=== PATIENT | male | born 1955 | race Caucasian/White ===

== ENCOUNTER → 2018-12-08 | Outpatient (CLI) | payer OTHER, SELFPAY ==
[2018-12-08 18:15] VITALS: BMI 33.7
[2018-12-08 22:23] LABS: Absolute Neutrophil Count 3.4 X10^3/uL (2.0-7.7); Basophil# 0.06 X10^3/uL; Basophil% 0.9 % (0-1); Eosinophil# 0.21 X10^3/uL; Eosinophils% 3.2 % (0-5); Hematocrit 39.3 % (40-54); Hemoglobin 14.1 g/dL (13.0-16.5); Lymphocyte % 34.9 % (19-41); Mean Corp Hgb Conc 35.9 g/dL (32-36); Mean Corpuscular Hgb 33.5 pg (27.0-32.0); Mean Corpuscular Volume 93.3 fL (80-94); Mean Platelet Vol. 10.5 fl (6.2-12.0); Monocyte# 0.58 X10^3/uL; Monocyte% 8.8 % (0-10); NRBC Flagged by Analyzer 0 % (0-5); Neutrophil # 3.41 X10^3/uL (2.7-7.7); Neutrophil % 51.7 % (47-70); Platelet Count 210 K/mm3 (150-450); RBC Distribution Width CV 13.2 % (11.6-14.6); RBC Distribution Width SD 43.8 fl (35.1-43.9); Red Blood Count 4.21 M/mm3 (4.6-6.2); White Blood Count 6.6 K/mm3 (4.4-11.0)
[2018-12-08 22:42] LABS: ALB/GLOB Ratio 1.2 RATIO (0.9-2.4); AST(SGOT) 24 U/L (15-37); Alanine Aminotransfer ALT/SGPT 37 U/L (16-61); Albumin, Serum 3.9 g/dL (3.2-5.0); Alkaline Phosphatase 66 U/L (45-117); Anion Gap 6 (5-15); BUN 10 mg/dL (7-18); BUN/Creat Ratio 8.8 RATIO (10-20); Calcium,Total 8.4 mg/dL (8.5-10.1); Chloride 109 mmol/L (98-107); Cholesterol 208 mg/dL (200); Creatinine, Serum 1.13 mg/dL (0.70-1.30); EST Glomerular Filtration Rate 70 mL/min (>60); Est Glom Filt Rate - Afr Amer 84 mL/min (>60); Globulin 3.3 g/dL (2.2-4.2); Glucose 121 mg/dL (74-106); High Density Lipoprotein 48 mg/dL; PSA,Total - Annual Screen 0.41 ng/mL (0.00-4.00); Potassium 4.1 mmol/L (3.5-5.1); Protein, Total 7.2 g/dL (6.4-8.2); Sodium Level 142 mmol/L (136-145); Triglycerides 254 mg/dL; Very Low Density Lipoprotein 51 mg/dL (5-40)
== END | disposition home or self-care (01) ==
PROVIDERS: Family Provider Nurse Practitioner; PCP Nurse Practitioner; Referring Provider Nurse Practitioner; Visit Provider Nurse Practitioner
DX: R35.0 Frequency of micturition (principal); R06.02 Shortness of breath; R03.0 Elevated blood-pressure reading, without diagnosis of hypertension
CPT/HCPCS: 80053; 80061; 84153; 85025; G0103

== ENCOUNTER 2019-07-31 14:27 | Emergency (ER) | payer OTHER, SELFPAY ==
[2019-03-22 18:41] VITALS: BMI 34.2
[2019-07-31 14:29] VITALS: BP 116/82; PULSE 87; RESP 18; TEMP 37; O2SAT 97; BMI 34.7
--- NOTE | 2019-07-31 15:35 | EKG12_ITS ---
Test Reason : FATIQUE Blood Pressure : / mmHG Vent. Rate : 075 BPM Atrial Rate : 075 BPM P-R Int : 128 ms QRS Dur : 080 ms QT Int : 372 ms P-R-T Axes : -02 -10 004 degrees QTc Int : 415 ms Normal sinus rhythm Normal ECG Confirmed by PREM LARIOS, NAHEED ([id number]), restaurant expeditor BOOM ORTIZ ([id number]) on 08/03/2019 10:36:46 AM Referred By: Confirmed By:NAHEED AMARO MD
--- NOTE | 2019-07-31 15:36 | ED.DCSUM_ITS ---
History of Present Illness Chief Complaint: Fatigue Informant: Patient Narrative: Patient states for the last 2 weeks he has had worsening fatigue. He states the fatigue never goes away but sometimes is worse than others. He states today while at work he could barely lift his arms up off of his legs. He notes muscle cramps, arthralgias of shoulders elbows forearms wrist hands ankles knees neck. He states sometimes his abdomen feels swollen. He notes a very weak urine stream. He notes a sharp pain in the left inguinal region for the past several days it is now constant. He notes bilateral CVA discomfort that is worse on some days. No fevers. No cough. Sometimes he has chest pains and shortness of breath. No palpitations. He states he has been eating and drinking. No weight gain weight loss. Past Medical History - Allergies and Home Meds Allergies/Adverse Reactions: Allergies Penicillins Allergy (Verified 09/30/16 11:02) Rash Primary Care Physician: Deepthi Alex NP-C [Primary Care Provider] - Smoking Status: Never smoker - Family History Maternal Family History: Reports: Hypertension Review of Systems General: Reports: Malaise. Denies: Chills, Fever, Sweats Eyes: Denies: Visual changes - bilaterally, Diplopia ENT: Denies: Rhinorrhea, Sore throat Cardiovascular: Reports: Chest pain. Denies: Palpitations Respiratory: Reports: Dyspnea. Denies: Cough, Dyspnea on exertion Gastrointestinal: Reports: - - Left inguinal pain. Denies: Abdominal pain, Nausea, Vomiting, Diarrhea, Melena, Hematochezia Genitourinary: Reports: - - Weak stream. Denies: Dysuria, Hematuria, Frequency Musculoskeletal: Reports: Myalgias, Arthralgias, Neck pain, Back pain. Denies: Extremity Pain Skin: Denies: Rash, Wounds Neurological: Denies: Headache, Weakness, Numbness Physical Exam Vital Signs/Narrative: Vital Signs Temp Pulse Resp BP Pulse Ox 07/31/19 14:29 98.6 F 87 18 116/82 H 97 Inital Vital Signs reviewed: Yes General: Well nourished, Well developed, No Acute Distress Head: Normocephalic, Atraumatic Eyes: Perrl, EOMI ENT: Moist mucous membranes, No rhinorrhea Neck: Supple, Nontender Cardiovascular: Regular rate, Regular rhythm, No murmurs Respiratory: No distress, CTA bilaterally, Chest nontender Abdomen: Soft, Nontender, Nondistended, Normal bowel sounds Back: Nontender, Normal Inspection Extremities: Nontender, No edema Skin: Normal color, No rash Neurological: Alert, Oriented x3, Cranial nerves II-XII grossly intact, Normal Strength, Normal Sensation Psychological: Normal affect, Normal Mood Diagnostic/Tx/Re-eval Clinical Impression(s) from Imaging Studies Chest X-Ray 07/31/19 16:00 IMPRESSION: Patchy subsegmental atelectasis or infection now in the inferolateral right base. Slightly more prominent focal scarring or atelectasis in the inferolateral left base. Electronically Signed: Bandar Schneider MD at 16:21 EDT , Service support , Abdomen/Pelvis CT 07/31/19 17:04 IMPRESSION: 1. Patchy pneumonic infiltrate in the inferolateral right lung base. 2. 5 mm nodular density in the posterolateral left base see report of CTA chest also done today. 3. No demonstrated abdominal/pelvic mass or fluid collection. 4. Prior L2-3 discectomy with placement of a prosthesis, left L2 laminectomy, and posterior L2 fusion with metal hardware. There are multilevel degenerative changes of the spine. Electronically Signed: Bandar Schneider MD at 18:21 EDT , Service support , Chest CTA 07/31/19 17:04 IMPRESSION: 1. No demonstrated pulmonary embolism or arterial dissection. 2. Patchy pneumonic infiltrate in the lateral inferior right lower lobe. There is also minor subsegmental atelectasis in the posterior medial right costophrenic sulcus and in the lingula of the left upper lobe. 3. Additional nodules measuring up to 6 mm seen in the left lung. Per Fleischner criteria, these do not require specific radiographic follow-up. 4. Some atherosclerotic calcific plaquing seen in the proximal left coronary arteries. Heart size normal. Electronically Signed: Bandar Schneider MD at 18:31 EDT , Service support , Laboratory Last Values WBC 9.4 K/mm3 (4.4-11.0) 07/31/19 16:11 RBC 4.28 M/mm3 (4.6-6.2) L 07/31/19 16:11 Hgb 13.1 g/dL (13.0-16.5) 07/31/19 16:11 Hct 39.8 % (40-54) L 07/31/19 16:11 MCV 93.0 fL (80-94) 07/31/19 16:11 MCH 30.6 pg (27.0-32.0) 07/31/19 16:11 MCHC 32.9 g/dL (32-36) 07/31/19 16:11 RDW Std Deviation 43.8 fl (35.1-43.9) 07/31/19 16:11 RDW Coeff of Mario 12.9 % (11.6-14.6) 07/31/19 16:11 Plt Count 244 K/mm3 (150-450) 07/31/19 16:11 MPV 9.7 fl (6.2-12.0) 07/31/19 16:11 Immature Gran % (Auto) 0.300 % (0.0-0.9) 07/31/19 16:11 Neut % (Auto) 68.7 % (47-70) 07/31/19 16:11 Lymph % (Auto) 17.7 % (19-41) L 07/31/19 16:11 Phillips % (Auto) 11.1 % (0-10) H 07/31/19 16:11 Eos % (Auto) 1.9 % (0-5) 07/31/19 16:11 Baso % (Auto) 0.3 % (0-1) 07/31/19 16:11 Absolute Neuts (auto) 6.4 X10^3/uL (2.0-7.7) 07/31/19 16:11 Absolute Lymphs (auto) 1.66 X10^3/uL (0.83-4.51) 07/31/19 16:11 Nucleated RBC % 0 % (0-5) 07/31/19 16:11 Sodium 134 mmol/L (136-145) L 07/31/19 16:11 Potassium 3.5 mmol/L (3.5-5.1) 07/31/19 16:11 Chloride 101 mmol/L (98-107) 07/31/19 16:11 Carbon Dioxide 24.0 mmol/L (21.0-32.0) 07/31/19 16:11 Anion Gap 9 (5-15) 07/31/19 16:11 BUN 9 mg/dL (7-18) 07/31/19 16:11 Creatinine 0.99 mg/dL (0.70-1.30) 07/31/19 16:11 Estim Creat Clear Calc 77.83 ml/min 07/31/19 16:11 Est GFR (MDRD) Af Amer 97 mL/min (>60) 07/31/19 16:11 Est GFR (MDRD) Non-Af 80 mL/min (>60) 07/31/19 16:11 BUN/Creatinine Ratio 9.1 RATIO (10-20) L 07/31/19 16:11 Glucose 99 mg/dL (74-106) 07/31/19 16:11 Calcium 8.6 mg/dL (8.5-10.1) 07/31/19 16:11 Magnesium 2.2 mg/dL (1.6-2.6) 07/31/19 16:11 Total Bilirubin 0.80 mg/dL (0.20-1.00) 07/31/19 16:11 AST 37 U/L (15-37) 07/31/19 16:11 ALT 53 U/L (16-61) 07/31/19 16:11 Alkaline Phosphatase 83 U/L (45-117) 07/31/19 16:11 Troponin I < 0.015 ng/mL (<0.045) 07/31/19 16:11 Total Protein 7.6 g/dL (6.4-8.2) 07/31/19 16:11 Albumin 3.3 g/dL (3.2-5.0) 07/31/19 16:11 Globulin 4.3 g/dL (2.2-4.2) H 07/31/19 16:11 Albumin/Globulin Ratio 0.8 RATIO (0.9-2.4) L 07/31/19 16:11 Lipase 115 U/L (73-393) 07/31/19 16:11 TSH 0.58 uIU/mL (0.358-3.74) 07/31/19 16:11 Urine Color Straw (Yellow) 07/31/19 15:45 Urine Clarity Clear (Clear) 07/31/19 15:45 Urine pH 7.0 (5.0 - 8.0) 07/31/19 15:45 Ur Specific [place] 1.010 (1.002-1.030) 07/31/19 15:45 Urine Protein Negative mg/dl (Negative) 07/31/19 15:45 Urine Glucose (UA) Normal mg/dl (Normal) 07/31/19 15:45 Urine Ketones Negative mg/dl (Negative) 07/31/19 15:45 Urine Occult Blood 10 /ul (Negative) H 07/31/19 15:45 Urine Nitrite Negative (Negative) 07/31/19 15:45 Urine Bilirubin Negative mg/dL (Negative) 07/31/19 15:45 Urine Urobilinogen Normal mg/dl (Normal) 07/31/19 15:45 Ur Leukocyte Esterase Negative /ul (Negative) 07/31/19 15:45 Urine RBC 0-5 SEEN /hpf (0-5) 07/31/19 15:45 Urine WBC 0 SEEN /hpf (0-5) 07/31/19 15:45 Ur Squamous Epith Cells 0 SEEN /hpf (0-5) 07/31/19 15:45 Urine Bacteria 0 SEEN /hpf (None Seen) 07/31/19 15:45 Urine Mucus 0 SEEN /hpf (<or=2+) 07/31/19 15:45 COVID-19 (GRACIELA) Cancelled 07/31/19 17:17 - Medical Decision Making Basic labs were obtained and overall appeared quite well. Chest x-ray is concerning for right lower lobe pneumonia. CT of the abdomen pelvis does not demonstrate anything to explain the pain in the left inguinal region. CTA of the chest shows no PE. Multiple nodules were noted as well as areas of inflammation consistent with a pneumonia. His COVID-19 test will be sent but he does not qualify for the OD H test or in-house testing. He was placed on azithromycin instructed to rest and follow-up return if worsening or concerns ED Disposition - Plan for ED Patient: Disposition: Home or Assisted Living Diagnosis: Pneumonia, COVID-19 virus test result unknown Instructions: Pneumonia Prescriptions: Azithromycin [Zithromax Z-Boby] 250 mg PO UD #1 box Transmission Status: Pending to [id number] Referrals: Deepthi Alex NP-C [Primary Care Provider] -
[2019-07-31 15:50] LABS: Bacteria 0 SEEN /hpf (None Seen); Mucous, Urine 0 SEEN /hpf (<or=2+); Squamous Epithelial Cells - UA 0 SEEN /hpf (0-5); White Blood Cells 0 SEEN /hpf (0-5)
[2019-07-31 15:51] LABS: Color, Urine Straw (Yellow); Glucose, Dipstick Normal (Normal); Ketone-Dipstick Negative (Negative); Leukocyte Esterase-Dipstick Negative /ul (Negative); Nitrite-Dipstick Negative (Negative); Occult Blood-Urine 10 /ul (Negative); Protein-Dipstick Negative (Negative); Urine Bilirubin Dipstick Negative (Negative); Urine Clarity Clear (Clear); Urine Urobilinogen Normal (Normal)
--- NOTE | 2019-07-31 16:00 | RAD_ITS ---
STUDY: X-RAY CHEST REASON FOR EXAM: Male, 64 years old. Shortness of breath, weakness, lethargic TECHNIQUE: Single AP portable upright view of the chest. COMPARISON: Portable AP upright chest x-ray September 30, 2016. FINDINGS: There is ill-defined subsegmental density of atelectasis or infection now in the lateral right lung base. Focal, transverse subsegmental atelectasis or scarring inferolateral left base is slightly more prominent today. There is no demonstrated pleural abnormality. Normal size heart. Normal mediastinum and kristian. Normal visualized pulmonary arteries. Normal visualized aortic arch and descending thoracic aorta. There are stable spondylotic degenerative changes of the visualized thoracic spine. 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 There is no demonstrated abnormality of the visualized soft tissue structures of the upper abdomen. RAD/Chest 1 View (Portable) IMPRESSION: Patchy subsegmental atelectasis or infection now in the inferolateral right base. Slightly more prominent focal scarring or atelectasis in the inferolateral left base. Electronically Signed: Bandar Schneider MD at 16:21 EDT , Service support ,
[2019-07-31 16:06] LABS: Red Blood Cells-Urine 0-5 SEEN /hpf (0-5)
[2019-07-31] MEDS: 0.9% Normal Saline 1,000 ML 1000 ML IV (16:14)
[2019-07-31 16:22] LABS: Absolute Lymphocyte Count 1.66 X10^3/uL (0.83-4.51); Absolute Neutrophil Count 6.4 X10^3/uL (2.0-7.7); Basophil# 0.03 X10^3/uL; Basophil% 0.3 % (0-1); Eosinophil# 0.18 X10^3/uL; Eosinophils% 1.9 % (0-5); Hematocrit 39.8 % (40-54); Hemoglobin 13.1 g/dL (13.0-16.5); Lymphocyte # 1.66 X10^3/ul (4.0); Lymphocyte % 17.7 % (19-41); Mean Corp Hgb Conc 32.9 g/dL (32-36); Mean Corpuscular Hgb 30.6 pg (27.0-32.0); Mean Platelet Vol. 9.7 fl (6.2-12.0); Monocyte# 1.04 X10^3/uL; Monocyte% 11.1 % (0-10); NRBC Flagged by Analyzer 0 % (0-5); Neutrophil # 6.43 X10^3/uL (2.7-7.7); Neutrophil % 68.7 % (47-70); POSITIVE MORPHOLOGY YES; Platelet Count 244 K/mm3 (150-450); RBC Distribution Width CV 12.9 % (11.6-14.6); RBC Distribution Width SD 43.8 fl (35.1-43.9); Red Blood Count 4.28 M/mm3 (4.6-6.2); White Blood Count 9.4 K/mm3 (4.4-11.0)
[2019-07-31 16:23] LABS: Differential Indicated SCAN CRITERIA MET
[2019-07-31 16:51] LABS: ALB/GLOB Ratio 0.8 RATIO (0.9-2.4); AST(SGOT) 37 U/L (15-37); Alanine Aminotransfer ALT/SGPT 53 U/L (16-61); Albumin, Serum 3.3 g/dL (3.2-5.0); Alkaline Phosphatase 83 U/L (45-117); Anion Gap 9 (5-15); BUN 9 mg/dL (7-18); BUN/Creat Ratio 9.1 RATIO (10-20); Calcium,Total 8.6 mg/dL (8.5-10.1); Chloride 101 mmol/L (98-107); Creatinine, Serum 0.99 mg/dL (0.70-1.30); EST Glomerular Filtration Rate 80 mL/min (>60); Est Glom Filt Rate - Afr Amer 97 mL/min (>60); Estimated Creatinine Clearance 77.83 ml/min; Globulin 4.3 g/dL (2.2-4.2); Glucose 99 mg/dL (74-106); Lipase 115 U/L (73-393); Magnesium 2.2 mg/dL (1.6-2.6); Potassium 3.5 mmol/L (3.5-5.1); Protein, Total 7.6 g/dL (6.4-8.2); Sodium Level 134 mmol/L (136-145); Thyroid Stim Hormone (TSH) 0.58 uIU/mL (0.358-3.74)
[2019-07-31 17:00] VITALS: BP 141/67; PULSE 75; RESP 20; O2SAT 98
--- NOTE | 2019-07-31 17:04 | CT_ITS ---
STUDY: CTA CHEST/THORAX REASON FOR EXAM: Male, 64 years old. LETHARGIC/WEAKNESS X1 WEEK PAIN TO NECK, BACK, ANKLE, LEG RADIATION DOSAGE (If Supplied By Facility): CTDIvol = ( 18.77 ) mGy, DLP = ( 2029.68 ) mGycm TECHNIQUE: The examination was performed with the intravenous administration of 100CC ISOVUE 370. Post-processing of the angiographic images was performed, with multiplanar reformation and 3D reconstruction. Individualized dose optimization techniques were used for this CT. COMPARISON: None. FINDINGS: Normal enhancement of the main pulmonary artery and right and left pulmonary arteries. Normal enhancement of the bilateral peripheral pulmonary arteries. There is no demonstrated pulmonary embolism. Normal thoracic aorta and visualized great vessels. There is no demonstrated aortic dissection. Normal heart and pericardium. There are calcifications of the proximal left coronary arteries. Normal mediastinum. Normal hilar regions. Normal visualized trachea and bronchi. There is patchy pneumonic infiltrate in the inferolateral right lung base. Minor subsegmental atelectasis also seen in the posterior medial right costophrenic sulcus. Focal irregular density, likely a focus of scarring, in the posteromedial right apex on series 2 image 184, series 605 image 102. There is a 5 mm nodular density in the posterolateral periphery of the left lower lobe abutting the pleural surface on series 2 image 62, series 605 image 120. 5 mm nodule seen in the posterolateral periphery of the left lower lobe posterior to the mid lung on series 2 image 96, series 605 image 120 just superior to that is focal subsegmental atelectasis in the lateral periphery of the left lower lobe. There is additional subsegmental atelectasis in the inferior lingula of left upper lobe. Ill-defined 3-4 mm nodule seen in the lateral periphery of the left upper lobe on series 2 image 170, series 605 image 81. [place] 6 mm nodular density in the left upper lobe at the level of the aorticopulmonary window is seen on series 2 image 150, series 605 image 72. Normal pleura. Normal chest wall structures. There are multilevel spondylotic degenerative changes of the thoracic spine and a mildly exaggerated dorsal kyphosis. There is a very small hiatal hernia. CT/CTA Chest W/WO Contrast IMPRESSION: 1. No demonstrated pulmonary embolism or arterial dissection. 2. Patchy pneumonic infiltrate in the lateral inferior right lower lobe. There is also minor subsegmental atelectasis in the posterior medial right costophrenic sulcus and in the lingula of the left upper lobe. 3. Additional nodules measuring up to 6 mm seen in the left lung. Per Fleischner criteria, these do not require specific radiographic follow-up. 4. Some atherosclerotic calcific plaquing seen in the proximal left coronary arteries. Heart size normal. Electronically Signed: Bandar Schneider MD at 18:31 EDT , Service support ,
--- NOTE | 2019-07-31 17:04 | CT_ITS ---
STUDY: CT ABDOMEN AND PELVIS WITH CONTRAST REASON FOR EXAM: Male, 64 years old. LETHARGIC/WEAKNESS X 1 WEEK PAIN TO NECK, BACK, ANKLE, LEG RADIATION DOSAGE (If Supplied By Facility): CTDIvol = ( 18.77 ) mGy, DLP = ( 2029.68 ) mGycm TECHNIQUE: Transaxial images were obtained from the dome of the diaphragm to the symphysis pubis without oral contrast. IV 100mL Isovue-370 was administered. Sagittal and coronal images were reconstructed. Individualized dose optimization techniques were used for this CT. COMPARISON: None. FINDINGS: There is patchy pneumonic infiltrate in the inferolateral right lung base. Additional curvilinear atelectasis in the medial posterior right costophrenic sulcus. 5 mm nodular density in the posterolateral left lung base abuts the pleural surface. The visualized portions of the heart are within normal limits. Normal liver. The patent portal vein diameter is 12 mm. Normal gallbladder and extrahepatic biliary system. Normal spleen. Normal pancreas. Normal bilateral adrenal glands. Normal right kidney. Normal left kidney. No hydronephrosis. There is a small hiatal hernia. Normal small intestine. Normal colon. The appendix is visualized and appears normal. There is focal calcific plaquing at the takeoff of the left renal artery. Normal inferior vena cava. Normal retroperitoneum. Normal urinary bladder. Normal visualized prostate gland. Normal abdominal wall. There are multilevel degenerative changes of the visualized spine. Transitional lumbosacral vertebra is also noted. The patient has undergone prior L2-3 discectomy with placement of a prosthesis, left L2 laminectomy, as well as posterior L2-3 fusion with metal hardware. Bilateral transpedicular screws at those levels are connected on either side the longitudinal metal rods. CT/Abdomen/Pelvis W IV Cont ONLY IMPRESSION: 1. Patchy pneumonic infiltrate in the inferolateral right lung base. 2. 5 mm nodular density in the posterolateral left base see report of CTA chest also done today. 3. No demonstrated abdominal/pelvic mass or fluid collection. 4. Prior L2-3 discectomy with placement of a prosthesis, left L2 laminectomy, and posterior L2 fusion with metal hardware. There are multilevel degenerative changes of the spine. Electronically Signed: Bandar Schneider MD at 18:21 EDT , Service support ,
[2019-07-31] MEDS: 0.9% Normal Saline 1,000 ML 150 ML IV (18:25)
[2019-07-31 19:08] VITALS: BP 135/70; PULSE 70; RESP 16; O2SAT 99
[2019-07-31 19:56] LABS: Platelet Estimate ADEQUATE (ADEQ)
[2019-07-31 19:57] LABS: Red Cell Morphology NORM C+C NORMAL (NORM C&C)
== END 2019-07-31 19:10 | disposition home or self-care (01) ==
PROVIDERS: Emergency Provider Emergency Medicine; PCP Nurse Practitioner
DX: J18.9 Pneumonia, unspecified organism (principal)
CPT/HCPCS: 71045; 71275; 74177; 80053; 81001; 83690; 83735; 84443; 84484; 85025; 87635; 93005; 96360; 96361; 99285; G2023; J7030; Q9967; A4216; U0003

== ENCOUNTER → 2020-01-19 17:37 | Outpatient (CLI) | payer OTHER, SELFPAY ==
[2020-01-18 17:33] VITALS: BMI 34.7
== END ==
PROVIDERS: PCP Nurse Practitioner; Referring Provider Nurse Practitioner; Visit Provider Nurse Practitioner
DX: Z20.828 Contact with and (suspected) exposure to other viral communicable diseases (principal)
CPT/HCPCS: 87635; C9803; U0003

== ENCOUNTER → 2022-01-09 | Outpatient (CLI) | payer OTHER, SELFPAY ==
[2022-01-09 22:02] LABS: Absolute Lymphocyte Count 2.19 X10^3/uL (0.83-4.51); Absolute Neutrophil Count 3.2 X10^3/uL (2.0-7.7); Basophil# 0.05 X10^3/uL; Basophil% 0.8 % (0-1); Eosinophil# 0.14 X10^3/uL; Eosinophils% 2.3 % (0-5); Hematocrit 42.1 % (40-54); Hemoglobin 14.5 g/dL (13.0-16.5); Lymphocyte # 2.19 X10^3/ul (0.83-4.51); Mean Corp Hgb Conc 34.4 g/dL (32-36); Mean Corpuscular Hgb 32.2 pg (27.0-32.0); Mean Corpuscular Volume 93.3 fL (80-94); Mean Platelet Vol. 10.7 fl (6.2-12.0); Monocyte# 0.51 X10^3/uL; Monocyte% 8.4 % (0-10); NRBC Flagged by Analyzer 0 % (0-5); Neutrophil # 3.18 X10^3/uL (2.7-7.7); Neutrophil % 52.2 % (47-70); Platelet Count 214 K/mm3 (150-450); RBC Distribution Width CV 13.4 % (11.6-14.6); RBC Distribution Width SD 45.5 fl (35.1-43.9); Red Blood Count 4.51 M/mm3 (4.6-6.2); White Blood Count 6.1 K/mm3 (4.4-11.0)
[2022-01-09 22:16] LABS: ALB/GLOB Ratio 1.1 RATIO (0.9-2.4); AST(SGOT) 24 U/L (15-37); Alanine Aminotransfer ALT/SGPT 34 U/L (16-61); Albumin, Serum 3.9 g/dL (3.2-5.0); Alkaline Phosphatase 69 U/L (45-117); Anion Gap 5 (5-15); BUN 14 mg/dL (7-18); BUN/Creat Ratio 13.3 RATIO (10-20); Calcium,Total 9.1 mg/dL (8.5-10.1); Chloride 107 mmol/L (98-107); Cholesterol 237 mg/dL (200); Creatinine, Serum 1.05 mg/dL (0.70-1.30); EST Glomerular Filtration Rate 75 mL/min (>60); Est Glom Filt Rate - Afr Amer 91 mL/min (>60); Globulin 3.5 g/dL (2.2-4.2); Glucose 147 mg/dL (74-106); High Density Lipoprotein 50 mg/dL; Magnesium 2.2 mg/dL (1.6-2.6); Potassium 4.6 mmol/L (3.5-5.1); Protein, Total 7.4 g/dL (6.4-8.2); Sodium Level 140 mmol/L (136-145); Triglycerides 264 mg/dL; Very Low Density Lipoprotein 53 mg/dL (5-40)
== END | disposition home or self-care (01) ==
PROVIDERS: PCP Nurse Practitioner; Visit Provider Nurse Practitioner
DX: G43.109 Migraine with aura, not intractable, without status migrainosus (principal); R25.2 Cramp and spasm; R35.0 Frequency of micturition; E78.00 Pure hypercholesterolemia, unspecified
CPT/HCPCS: 80053; 80061; 83735; 84153; 85025; G0103

== ENCOUNTER → 2022-06-09 | Outpatient (CLI) | payer OTHER, SELFPAY ==
[2022-06-09 22:31] LABS: Absolute Lymphocyte Count 1.99 X10^3/uL (0.83-4.51); Absolute Neutrophil Count 3.7 X10^3/uL (2.0-7.7); Basophil# 0.06 X10^3/uL; Basophil% 0.9 % (0-1); Eosinophil# 0.15 X10^3/uL; Eosinophils% 2.3 % (0-5); Hematocrit 42.9 % (40-54); Hemoglobin 14.4 g/dL (13.0-16.5); Lymphocyte # 1.99 X10^3/ul (0.83-4.51); Lymphocyte % 30.8 % (19-41); Mean Corp Hgb Conc 33.6 g/dL (32-36); Mean Corpuscular Volume 92.3 fL (80-94); Mean Platelet Vol. 11.4 fl (6.2-12.0); Monocyte# 0.55 X10^3/uL; Monocyte% 8.5 % (0-10); NRBC Flagged by Analyzer 0 % (0-5); Neutrophil # 3.69 X10^3/uL (2.7-7.7); Neutrophil % 57.2 % (47-70); Platelet Count 192 K/mm3 (150-450); RBC Distribution Width CV 13.2 % (11.6-14.6); RBC Distribution Width SD 44.5 fl (35.1-43.9); Red Blood Count 4.65 M/mm3 (4.6-6.2); White Blood Count 6.5 K/mm3 (4.4-11.0)
[2022-06-09 23:01] LABS: ALB/GLOB Ratio 1.1 RATIO (0.9-2.4); AST(SGOT) 25 U/L (15-37); Alanine Aminotransfer ALT/SGPT 36 U/L (16-61); Albumin, Serum 3.8 g/dL (3.2-5.0); Alkaline Phosphatase 68 U/L (45-117); Anion Gap 2 (5-15); BUN 23 mg/dL (7-18); BUN/Creat Ratio 18.5 RATIO (10-20); Calcium,Total 9.1 mg/dL (8.5-10.1); Chloride 108 mmol/L (98-107); Cholesterol 248 mg/dL (200); Creatinine, Serum 1.24 mg/dL (0.70-1.30); EST Glomerular Filtration Rate 62 mL/min (>60); Est Glom Filt Rate - Afr Amer 75 mL/min (>60); Globulin 3.4 g/dL (2.2-4.2); Glucose 130 mg/dL (74-106); High Density Lipoprotein 44 mg/dL; Potassium 4.4 mmol/L (3.5-5.1); Protein, Total 7.2 g/dL (6.4-8.2); Sodium Level 136 mmol/L (136-145); Thyroid Stim Hormone (TSH) 1.41 uIU/mL (0.358-3.74); Triglycerides 282 mg/dL; Very Low Density Lipoprotein 56 mg/dL (5-40)
[2022-06-10 09:55] LABS: PTHIN 30.4 pg/mL (18.4-80.1)
[2022-06-11 13:02] LABS: Lyme Scn Total Ab w/Rflx Negative (Negative)
[2022-06-11 13:08] LABS: Anti-Centromere B Ab <0.2 AI (0.0-0.9); Anti-Chromatin <0.2 AI (0.0-0.9); Anti-Jo <0.2 AI (0.0-0.9); Anti-Scleroderma-70 AB <0.2 AI (0.0-0.9); RNP Ab <0.2 AI (0.0-0.9); SJOGREN'S Anti-SS-A test < 0.2 AI (0.0-0.9); SJOGREN'S Anti-SS-B test < 0.2 AI (0.0-0.9); Smith Ab <0.2 AI (0.0-0.9)
[2022-06-11 18:54] LABS: Anti-dsDNA Ab 1 IU/mL (0-9)
== END | disposition home or self-care (01) ==
PROVIDERS: PCP Nurse Practitioner; Visit Provider Nurse Practitioner
DX: Z00.00 Encounter for general adult medical examination without abnormal findings (principal); R29.898 Other symptoms and signs involving the musculoskeletal system; R42 Dizziness and giddiness
CPT/HCPCS: 80053; 80061; 83970; 84443; 85025; 86140; 86225; 86235; 86618

== ENCOUNTER → 2023-03-10 | Outpatient (CLI) | payer MEDICARE, SELFPAY ==
--- NOTE | 2023-03-10 09:31 | RAD_ITS ---
EXAM: XR BILATERAL HIPS WITH PELVIS WHEN PERFORMED, 2 VIEWS CLINICAL INDICATION: Pain, hx of lower back surgery in 2016 TECHNIQUE: Frontal view of the bilateral hips with pelvis when performed. COMPARISON: No relevant prior studies available. FINDINGS: BONES/JOINTS: Narrowing of the left hip joint space noted. SOFT TISSUES: Normal. No soft tissue swelling or gas. RAD/Hips B/L min 2 views w/ Pelvis IMPRESSION: No acute bone or joint abnormality. Degenerative narrowing of the left hip joint. Electronically Signed: Moreno Fried MD at 10:18 EST ,
--- NOTE | 2023-03-10 09:31 | RAD_ITS ---
EXAM: XR LUMBOSACRAL SPINE FLEXION/EXTENSION ONLY, 2 OR 3 VIEWS CLINICAL INDICATION: bilat quad pain that radiates down legs TECHNIQUE: Lateral flexion/extension views of the lumbar spine and sacrum. COMPARISON: No relevant prior studies available. FINDINGS: VERTEBRAE: Interpedicular screw fixation of L3 and L4 with L3 laminectomy. No acute fracture or subluxation. No evidence of instability with flexion and extension. Limited range of motion is noted at the lumbar level. DISC SPACES: Disc implant in place at the L2-3 level. L2-3 disc space is narrowed. Prominent facet arthropathy at the L3-4, L4-5 and L5-S1 levels. GASTROINTESTINAL TRACT: Normal bowel gas pattern. RAD/L/S Spine Bending Flex/Ext IMPRESSION: Postoperative and degenerative changes. No evidence of instability. Electronically Signed: Moreno Fried MD at 10:21 EST ,
== END | disposition home or self-care (01) ==
PROVIDERS: PCP Nurse Practitioner; Referring Provider Nurse Practitioner; Visit Provider Nurse Practitioner
DX: M54.10 Radiculopathy, site unspecified (principal)
CPT/HCPCS: 72120; 73521

== ENCOUNTER 2023-03-22 07:35 | Outpatient (RCR) | payer MEDICARE, SELFPAY ==
--- NOTE | 2023-06-07 11:07 | HP.PT.NRP ---
Patient Information Patient Information: DONALD JONES was seen in my office for initial evaluation on 03/22/23. The following Plan of Care was established for this patient: Last Seen Last Seen: This patient was last seen in our office . Pertinent comments regarding their Physical therapy will appear below: Patient to have surgery- d/c At this point I will be discontinuing this patient from physical therapy. I would be happy to see this patient again in the future if found appropriate by the physician. Thank you! KARELY HannahT
== END 2023-03-22 19:00 | disposition home or self-care (01) ==
LOC: PT 07:35
PROVIDERS: PCP Nurse Practitioner; Referring Provider Orthopaedic Surgery Orthopaedic Surgery of the Spine; Visit Provider Orthopaedic Surgery Orthopaedic Surgery of the Spine
DX: M54.16 Radiculopathy, lumbar region (principal)

== ENCOUNTER → 2023-03-22 | Outpatient (CLI) | payer MEDICARE, SELFPAY ==
--- NOTE | 2023-03-22 15:34 | MRI_ITS ---
STUDY: MRI LUMBAR SPINE WITHOUT CONTRAST REASON FOR EXAM: Male, 67 years old. pain, low back pain, leg pain TECHNIQUE: Standardized fat and water weighted pulse sequences were obtained in the sagittal and axial planes. COMPARISON: Lumbar spine radiograph March 10, 2023 FINDINGS: T12-L1: Normal endplates. Normal disc height, hydration and morphology. Normal bilateral facet joints. Normal central canal and bilateral lateral recesses. Normal bilateral intervertebral neural foramina. Normal lumbar lordosis. There is no substantial scoliosis. Normal conus medullaris that terminates at the T12-L1. L1-2: Normal endplates. Normal disc height, hydration and morphology. Normal bilateral facet joints. Normal central canal and bilateral lateral recesses. Normal bilateral intervertebral neural foramina. L2-3: Normal endplates. Normal disc height, hydration and morphology. Normal bilateral facet joints. Normal central canal and bilateral lateral recesses. Normal bilateral intervertebral neural foramina. Posterior interbody fusion rods. Disc spacer. L3-4: Normal endplates. Normal disc height, hydration and morphology. Normal bilateral facet joints. Normal central canal and bilateral lateral recesses. Narrowed bilateral intervertebral neural foramina. L4-5: Normal endplates. Normal disc height, hydration and morphology. Hypertrophic bilateral facet joints. Normal central canal and bilateral lateral recesses. Narrowed bilateral intervertebral neural foramina. L5-S1: Normal endplates. Normal disc height, hydration and morphology. Normal bilateral facet joints. Normal central canal and bilateral lateral recesses. Normal bilateral intervertebral neural foramina. Normal visualized sacral ala. Normal visualized paraspinous soft tissue structures. MRI/Spine Lumbar (Routine) IMPRESSION: Posterior interbody fusion L2-3. Bilateral neural foraminal narrowing as above. No acute disease. Electronically Signed: Eduardo Newsome MD at 23:19 EST ,
== END | disposition home or self-care (01) ==
PROVIDERS: PCP Nurse Practitioner; Visit Provider Orthopaedic Surgery Orthopaedic Surgery of the Spine
DX: M54.16 Radiculopathy, lumbar region (principal)
CPT/HCPCS: 72148

== ENCOUNTER → 2023-04-14 | Outpatient (CLI) | payer MEDICARE, SELFPAY ==
--- NOTE | 2023-04-14 07:07 | CT_ITS ---
CT LEFT LOWER EXTREMITY WITH 3-D IMAGING CLINICAL INDICATION: templating for left JOSEPH TECHNIQUE: Axial CT images of the LEFT lower extremity was performed without IV contrast material. Coronal and sagittal reformats as well as 3D reformats were provided. RADIATION DOSAGE (If Supplied By Facility): CTDIvol = ( 14.07 ) mGy, DLP = ( 958.77 ) mGycm COMPARISON: Prior study dated: 2023. FINDINGS: Bones: There is a marked degree of joint space narrowing with superior lateral migration of the left femoral head. Mild degree of joint space narrowing of the right hip joint. Imaging of the knee joints was obtained as well. There is a mild degree of joint space narrowing involving the medial compartments of the knee joints as well as calcification of the medial and lateral menisci. Soft Tissues: The deep soft tissue structures are unremarkable. Small knee joint effusion. CT/Extremity Lower without Contra IMPRESSION: Marked degree of joint space narrowing involving the left hip joint as described. Mild degree of joint space narrowing involving the medial compartments of both knee joints with chondrocalcinosis. Electronically Signed: Robert Kumar MD at 10:49 EST ,
== END | disposition home or self-care (01) ==
LOC: CT 07:07
PROVIDERS: PCP Nurse Practitioner; Referring Provider Orthopaedic Surgery; Visit Provider Orthopaedic Surgery
DX: M16.12 Unilateral primary osteoarthritis, left hip (principal)
CPT/HCPCS: 73700

== ENCOUNTER 2023-05-18 08:06 | Day surgery (SDC) | payer MEDICARE, SELFPAY ==
--- NOTE | 2023-05-12 07:11 | EKG12_ITS ---
Test Reason : PREOP Blood Pressure : / mmHG Vent. Rate : 066 BPM Atrial Rate : 066 BPM P-R Int : 128 ms QRS Dur : 078 ms QT Int : 392 ms P-R-T Axes : 009 -03 029 degrees QTc Int : 410 ms Sinus rhythm with Premature supraventricular complexes Otherwise normal ECG Confirmed by TATE LARIOS, RADHA ([id number]), supervising editor trailer VERO KNOWLES ([id number]) on 05/12/2023 1:42:53 PM Referred By: Julio César Ugalde Confirmed By:RADHA YBARRA MD
[2023-05-12 08:17] LABS: Absolute Lymphocyte Count 2.03 X10^3/uL (0.83-4.51); Absolute Neutrophil Count 3.1 X10^3/uL (2.0-7.7); Basophil# 0.05 X10^3/uL; Basophil% 0.8 % (0-1); Eosinophil# 0.14 X10^3/uL; Eosinophils% 2.4 % (0-5); Hematocrit 42.9 % (40-54); Hemoglobin 14.6 g/dL (13.0-16.5); Lymphocyte # 2.03 X10^3/ul (0.83-4.51); Lymphocyte % 34.3 % (19-41); Mean Corpuscular Hgb 31.1 pg (27.0-32.0); Mean Corpuscular Volume 91.3 fL (80-94); Mean Platelet Vol. 10.2 fl (6.2-12.0); Monocyte# 0.58 X10^3/uL; Monocyte% 9.8 % (0-10); NRBC Flagged by Analyzer 0 % (0-5); Neutrophil % 52.4 % (47-70); Platelet Count 194 K/mm3 (150-450); RBC Distribution Width CV 13.3 % (11.6-14.6); RBC Distribution Width SD 44.8 fl (35.1-43.9); White Blood Count 5.9 K/mm3 (4.4-11.0)
[2023-05-12 08:48] LABS: Magnesium 2.5 mg/dL (1.6-2.6)
[2023-05-12 08:50] LABS: Anion Gap 7 (5-15); BUN 10 mg/dL (7-18); BUN/Creat Ratio 10.9 RATIO (10-20); Chloride 105 mmol/L (98-107); Creatinine, Serum 0.92 mg/dL (0.70-1.30); EST Glomerular Filtration Rate 87 mL/min (>60); Est Glom Filt Rate - Afr Amer 105 mL/min (>60); Glucose 95 mg/dL (74-106); Potassium 3.8 mmol/L (3.5-5.1); Sodium Level 139 mmol/L (136-145)
[2023-05-12 09:30] LABS: Prothrombin Time (Protime)PT. 13.4 SECONDS (11.7-14.9)
[2023-05-12 09:31] LABS: Partial Thromboplast Time 27.6 Seconds (24.1-36.2)
[2023-05-12 10:31] LABS: Hemoglobin A1c 5.1 % (3.8-5.6)
[2023-05-13 05:07] LABS: Fructosamine 234 umol/L (0-285)
[2023-05-18] VITALS (15 sets, daily range): BP systolic 102–141; BP diastolic 48–96; PULSE 64–88; RESP 16; TEMP 35.7–37; O2SAT 92–100; BMI 31.4
[2023-05-18 09:21] LABS: Bedside Glucose 89 mg/dL (74-106)
[2023-05-18] MEDS: Lactated Ringers 1,000 ML 999 ML IV (09:26)
[2023-05-18] MEDS: Celecoxib 200 MG Capsule 400 MG PO (09:27)
[2023-05-18] MEDS: Acetaminophen 500 MG Tablet 1000 MG PO (09:27)
[2023-05-18] MEDS: Gabapentin 600 MG Tablet PO (09:27)
[2023-05-18] MEDS: Scopolamine 1mg/72hr Patch 1 PATCH TD (09:31)
[2023-05-18] MEDS: Magnesium 1 GM over 15 mins IV (09:31)
--- NOTE | 2023-05-18 09:56 | PCM.HP.BLA ---
History and Physical Date of Admission: 05/18/23 [facility] [address] [place] [address] OFFICE VISIT Date of Service: 03/29/23 MR#: [id number] Acct: [id number] Name: DONALD JONES Rep #: [id number] : 1955 Provider: Dr. Julio César Ugalde DO Age/Sex: 67/M Location: [facility] [place].ERMELINDA Status: Signed Intake Vital Signs 03/17/2407:05 03/17/2407:52 03/29/2407:08 Height 5 ft 10 in 5 ft 10 in 5 ft 10 in Weight: 231 lb 6 oz BMI 33.2 Intake Visit Reasons: BI LAT HIPS Is patient in pain?: Yes (Bilateral hips) Pain scale (1-10): 4 Allergies Penicillins Allergy (Verified 03/29/23 07:59) Rash Medications NK 03/17/23 [History Confirmed 03/29/23] PFSH Medical History Bilateral acute otitis media BULDGING DISC LOWER LUMBAR REGION Burning sensation of feet CARPAL TUNNEL RIGHT HAND Cellulitis Close exposure to COVID-19 virus Cough Elevated C-reactive protein (CRP) Fatigue Fever Frequency of urination High blood cholesterol Hordeolum of right eye Hx of migraines Left facial pain Left otitis media Left otitis media Leg cramps Lymphadenopathy of head and neck Maxillary sinusitis, acute Mixed hyperlipidemia Ocular migraine Otitis media, left PHOBIA WITH GROUS TO URINATE Skin lesion SOB (shortness of breath) on exertion Tingling of both feet Vertigo Weakness of lower extremity Wellness examination Surgical History History of back surgery History of left heart catheterization (LHC) (~10/01/16) Family History Uncle Heart diseaseBrother Myocardial infarction Social History Smoking Status: Never smoker alcohol intake: never substance use type: does not use HPI BI LAT HIPS Details: This documentation accurately reflects the service provided and the decisions made by me, Dr. Julio César Ugalde DO 03/29/23 0753. Part of today?s visit was documented by Estela CROWE, acting as scribe. DONALD JONES is a 67 year old M here today for bilateral hip pain. He states the left hip is worse than the right. His right is very minimal. He states the pain gets worse as the day goes on. He states at times his hips feels like they are going to give out on him. By the end of the day he is barely able to walk. He does have numbness and tingling as well down the anterior thigh and some pain down past the knee for which he is seeing Dr. [place] for. He denies previous surgery or injury to the hips. Left hip pain has been present for 2 years and getting worse over the past year. He did have to retire due to his hip pain not able to stand. Pain is mostly in the groin radiates to the glute and over medial and anterior thigh. He has not done any physical therapy or NSAIDs. Of note he did have lumbar surgery 2016 Ortho Exam General General: Yes no acute distress Neurologic: Yes alert and Yes oriented x3 Psychologic: Yes reasonable and appropriate Left Hip Skin/Wound: No Ecchymosis, No soft tissue swelling and No Erythema Hip: Absent eccymosis, soft tissue swelling, erythema or tender to palpate - internal rotation @90 degree flexion: 0 degrees external rotation @90 degree extension: 20 degrees Special Tests: Yes RROM flexion pain; No TTP Greater Troch HIP: internal and external rotation with reproduction of groin pain is significant No masses around the hip or skin concern no significant edema palpable pedal pulse Scaly low-intensity erythematous small rash on BL ankles, states he gets every year then goes away. Head: Normocephalic Atraumatic Chest: symmetrical rise, non-labored breathing, no audible wheeze Abdomen: no guarding, non-rigid Supplemental Info 03/22/2023 MRI lumbar spine: L3-L4 normal bilateral neural foramina L4-L5 narrowed bilateral neural foramina 03/10/2023 x-ray bilateral hips: Left hip severe joint space narrowing degenerative changes seen at the pubic symphysis posterior lumbar instrumentation partially viewed right hip has a very early minimal degenerative change 03/10/2023 x-ray lumbar spine: Posterior lateral pedicular screw fixation L2-L3 there is degenerative arthrosis lower lumbar facets bilaterally Coding Level of Care Code Off vis,est,level 4 Diagnoses Status post lumbar spinal fusion Z98.1 Lumbar radiculopathy M54.16 Unilateral primary osteoarthritis, left hip M16.12 Assessment and Plan Assessment and Plan (1) Status post lumbar spinal fusion: Status: Acute (2) Lumbar radiculopathy: Status: Acute (3) Unilateral primary osteoarthritis, left hip: Status: Acute Plan X-rays were reviewed. There is no obvious fracture, dislocation, or lucency noted. Left hip does moderate to severe arthritis of the hip in addition he does have some lower lumbar spondylosis below his previous surgery. Patient was made aware that his numbness/tingling/pain below his knee and possibly anterior thigh will not go away after having a JOSEPH, however he is a candidate for hip replacement and I do think it would benefit him in terms of his severe pain that is experiencing in his groin which is reproducible on examination. Treatment options are do nothing or anti-inflammatories or physical therapy or a JOSEPH. Risks, benefits and alternatives of surgery reviewed including but not limited to bleeding, infection, nerve, foot drop, artery and/or tissue damage, fracture, VTE, leg length discrepancy, dislocation, need for hip precautions, continued pain and expected post-operative course. We discussed the recovery period postoperative expectations and limitations. Patient was counseled about dental work with have a total hip replacement. Patient would like to go home and think about it before going forward with the JOSEPH. Patient does have 17 steps at home that he would have to navigate and he does live with his however she would not be able to help him physically so he may need to be observed overnight. Follow up he wants to proceed with surgery or sooner if pain, swelling, numbness or associated symptoms, or concerns develop. All questions answered. Patient in agreement of plan. 03/29/23 0844 <Electronically signed by Julio César Ugalde DO> Date Julio César Ugalde DO I have examined the patient and the H&P has been reviewed. There are no clinical changes since date of exam.
--- NOTE | 2023-05-18 11:05 | HIP_PTH ---
PATIENT: DONALD JONES [place] [facility] [place][id number] AGE/SX: 68/M ROOM: RE05/18/[address]: Dr. Julio César Ugalde DO : 1955 BED: DIS: 05/18/2023 SPEC #: [id number] RECD: 05/18/23 16:03 STATUS: TYREL REJacqueline #: [id number] KAITLYN: 05/18/23 11:[address]: Julio César Ugalde DEPT: SURGICAL PATHOLOGY RECD BY: Elizabeth Cabezas ENTERED: 05/19/23 08:43 SP TYPE: TOTAL HIP OTHR DR: Deepthi Alex, ROVING CHANGER-C Tissues: Hip, NOS Procedures: Decalcification bone/plaque Surgery Specimen Level IV HEADER OPERATION: ERAS left total hip replacement robotic arm assisted PRE-OP DIAGNOSIS: Unilateral primary osteoarthritis, left hip TISSUE SUBMITTED: Femoral head MICROSCOPIC DIAGNOSIS Bone and tissue of left hip, total hip resection: Severe degenerative joint disease. AM: 05/24/23 MICROSCOPIC DESCRIPTION Slides are reviewed. GROSS DESCRIPTION Received is one container labeled with the patient's name and designated bone and soft tissue left hip. The specimen consists of a sellers femoral head (with portion of femoral neck). The femoral head measures 5.0 x 5.0 x 5.0 cm (and the femoral neck measures 2.0 cm in length.) The articular surface displays prominent osteophyte formation, eburnation and bone erosion. Bone reamings measures in aggregate 8.0x7.0x2.0cm. Faculty Support Coordinator sections are submitted in two cassettes after decalcification as follows: 1 - bone reaming, 2 - femoral head. / 05/19/23 TC:5 CPT: 37546, 47748
[2023-05-18] MEDS: Cefazolin 2 GM in 0.9% Normal Saline (100mL Bag) 100 ML IV ×2 (11:12→16:37)
[2023-05-18] MEDS: TRANEXAMIC ACID 2,000 MG in 0.9% Normal Saline (100mL Bag) 100 ML 660 MG IV (11:20)
[2023-05-18] MEDS: dexAMETHasone 10 MG/ML Vial IV (11:32)
--- NOTE | 2023-05-18 13:12 | OP.PCM_ITS ---
Operative Report Date of Procedure: 05/18/23 Preoperative diagnosis: [Left] hip DJD Postoperative diagnosis: Same Procedure: CT-guided Makoplasty assisted [Left] total hip arthroplasty Implants: [place] Accolade II stem size 6, [127] degree neck angle 0 head neck length 58 mm Trident II acetabular shell with 40 mm cancellous screw [36]mm [ceramic] head, 10 degree Trident X3 polyethylene insert. Anesthesia: General EBL: [175] cc Complications: None Condition: Stable to PACU [Title Inspector Nomi Patel. My physician pharmacy technician assistant was a vital part of this case. He was important in appropriate retraction during the case, and protection of soft tissues during procedure. His intimate knowledge of the case and my steps aided in safe and expedient completion of the procedure as well as appropriate position of the extremity during the case. He was also vital in assisting with closure under my direct supervision.] Indication for procedure: This is a 68-year-old male who has had long-standing arthrosis of the hip who has failed conservative treatment and wished to undergo total hip arthroplasty. We did discuss operative versus nonoperative intervention including risks of bleeding, infection , nerve artery tissue damage, need for further surgery, fracture, leg length discrepancy dislocation blood clot and need for postoperative physical therapy and postoperative expectations. An informed consent was signed. Procedure: Patient was met in the preoperative holding area once again the operative extremity was identified by both patient and physician and was marked. Patient was met by anesthesia . Anesthesia was started. patient was then positioned in the lateral decubitus position on a well-padded pegboard with an axillary roll. All bony prominences were checked and padded. The patient was prepped and draped in the usual sterile fashion. A timeout was called to ensure the proper patient procedure and extremity were being contemplated. Anatomic landmarks were palpated and marked for a standard posterior lateral approach. Prior to this the ASIS was palpated and 3 fingerbreadths proximal to this 3 pins were placed at a 45 degree angle into the iliac crest with good purchase, stab incisions were made with a 15 blade into the skin prior to placement. The Makoplasty array was then secured. A 10 blade scalpel was used to make a posterior incision through the skin and subcutaneous tissue. retractors were used and electrocautery was used to maintain meticulous hemostasis and dissect full-thickness flaps until the gluteal fascia was reached. The gluteal fascia was incised in line with the gluteal fibers. The bursal tissue was then freed from the underside and a Charnley retractor was placed. The femoral trochanteric checkpoint was placed and leg length was assessed using the trochanteric checkpoint and an EKG lead that was placed on the knee prior to prepping the leg .the fat pad was then elevated off of the external rotators with electrocautery and the external rotators were dissected off of the greater trochanter including the piriformis and were tagged with #1 Ethibond for later repair. The joint capsule opened with posterior trapdoor technique. The hip was surgically dislocated. The measurement on the preoperative CT from the top of the lesser trochanter to the femoral neck cut was marked Hohmann was placed around the lesser trochanter. A neck cutting guide was used to rosa the neck with a Bovie and an oscillating saw was used complete the femoral neck cut. The femoral head was then removed and sized. We then turned our attention to the acetabulum. A Bovie was used to make a perforation in the anterior joint capsule and a Noland retractor was placed this was repeated in the 6 o'clock position and a wide lenny was placed there. With a long handled knife the labral and pulvinar tissue were removed. We then registered the acetabulum with the pointing array and confirmed our landmarks. Once the socket was thoroughly prepared and labral tissue and pulvinar was removed we single reamed with the robotic arm. We then used the robotic arm to position the acetabular implant and impacted it into place under robotic guidance. [We then proceeded to place a posterior superior screw by drilling first measuring and inserting the screw]. We then inserted a trial liner. And turned our attention back to the femur at this point a femoral elevator was used. As well as a pointed wide Hohmann around the lesser trochanter and a Hohmann to help retract the gluteus medius. A box chisel was used to remove excess lateral neck followed by a canal finder and a lateralizing reamer. This was followed by sequential broaches. Attention was made of the version within the canal based on preoperative templating. Once the final broach was seated we then trialed reduced the hip it was determined that a [127] degree neck angle with a 0 neck length was the appropriate size. We then checked stability with shuck testing as well as flexion and internal rotation. then proceeded with hip extension and checked leg lengths at the knees and heels as well as with the trochanteric checkpoint and knee EKG lead. At this point trials were removed. A liner was inserted to the cup. The femoral stem was inserted. We re-trialed and then proceeded to impact the femoral head onto the Gelacio taper. We then surgically reduce the hip check stability again and leg lengths and were satisfied. Betadine rinse was allowed to sit for 5 minutes while everyone changed their gloves. Thorough irrigation was performed. Followed by closure of the external rotators with #2 FiberWire followed by closure of gluteal fascia with #1 Ethibond. 0 Vicryl fat stitches and 2-0 Vicryl subcutaneous stitches and kayce in the skin. Kayce were placed in the skin pin sites over the iliac crest and dressed with a Mepilex dressing. The main incision was dressed with a Mepilex ag dressing and an abduction pillow was placed. Patient tolerated the procedure well there was no intraoperative complications all counts were correct and the patient was brought back to the PACU in stable condition
--- NOTE | 2023-05-18 13:13 | EX.PCM.DISCH ---
Discharge Instructions Diet Discharge Diet: No restrictions Activity Weight Bearing Status: Full weight bearing Dressing / Incision Call your doctor if you observe: Shortness of breath and Chest pain Additional Dressing/Incision Instructions:: Do not shower 72hrs. Begin daily showering warm water antibacterial soap postop day #3( 72hrs Post-operatively) and then daily. Leave the dressing on for 72 hours postoperatively then may remove prior to first shower and change dressing daily after this until no drainage for 2 consecutive days then may leave open to air. Follow hip precautions that were reviewed in hospital. Wear compression stockings, may remove at night. Start physical therapy as directed in hospital. Follow prescriptions instructions do not take any other pain medication or differ dosing without consulting your physician. Do not take oral NSAIDs until blood thinner has been completed , then may begin the day after completion if needed . Call Dr. Ugalde's office with any concerns. Follow Up Care Please Follow Up With: Julio César Ugalde DO When: 2 weeks Test Results: Test results from this visit will be discussed in further detail at your follow-up appointment, if applicable. Discharge Plan Admission Primary Reason for Your Visit: Left total hip arthroplasty Attending Provider: Julio César Ugalde Primary Care Provider: Deepthi Alex NP Discharge Orders/Prescriptions Prescriptions: New acetaminophen [acetaminophen] 500 mg tablet 1,000 mg PO Q6H PRN Qty: 100 0RF Eliquis 2.5 mg tablet 2.5 mg PO BID Qty: 42 0RF Rx Instructions: Begin morning after surgery cephalexin [cephalexin] 500 mg capsule 1,000 mg PO Q8 Qty: 4 0RF Rx Instructions: take 2 tabs at 9:00 pm and 2 tabs after 5 am when you wake up oxycodone 5 mg tablet 5 - 10 mg PO Q4H PRN (Reason: pain) 7 Days Qty: 60 0RF Continued C Complex 1,000 mg tablet extended release 1,000 mg PO DAILY vitamin E 268 mg (400 unit) capsule 268 mg PO DAILY garlic 1,000 mg capsule 1,000 mg PO DAILY cinnamon bark [Cinnamon] 500 mg capsule 500 mg PO DAILY diclofenac sodium [Voltaren Arthritis Pain] 1 % gel 2 g topical DAILY Held ibuprofen 800 mg tablet 800 mg PO BID Hold Instructions: Resume on 06/10/23. May resume after completion of blood thinner Patient Comments: TAKE 1 TABLET BY MOUTH THREE TIMES DAILY NEEDED FOR PAIN No Action saw palmetto 500 mg capsule 500 mg PO DAILY Rx Instructions: give with food (meal/snack) Referrals / Follow Up: Deepthi Alex NP, [employer] OPERATOR [facility] [Primary Care Provider] - Disposition Disposition (needs filled in before D/C Order can be placed): Home, Self Care
--- NOTE | 2023-05-18 13:25 | RAD_ITS ---
STUDY: X-RAY - PELVIS AND LEFT HIP REASON FOR EXAM: Male, 68 years old. Postop -- in PACU TECHNIQUE: 2 views of the pelvis and hip. COMPARISON: March 10, 2023 FINDINGS: There is a normal bowel gas pattern. There is postoperative change in the left lateral soft tissues. There are skin eloise. Normal bilateral iliac wings, sacroiliac joints and visualized sacrum. Normal bilateral superior and inferior pubic rami. Normal pubic symphysis. Normal bilateral ischial tuberosities. There is left hip replacement. Alignment is near-anatomic. RAD/Hip Min 2 Views (Portable) IMPRESSION: Left hip replacement. Electronically Signed: Adrian Dubon MD at 22:28 EDT ,
[2023-05-18] MEDS: Ketorolac 30 MG/ML Syringe 15 MG IV (14:13)
[2023-05-18] MEDS: oxyCODONE 5 MG Tablet PO (15:55)
== END 2023-05-18 18:18 | disposition home or self-care (01) ==
LOC: SDC 08:07 → AC 08:08
PROVIDERS: Anesthesiology; PCP Nurse Practitioner; Referring Provider Orthopaedic Surgery; Visit Provider Orthopaedic Surgery
PROC: 8E0Y0CZ Robotic Assisted Procedure of Lower Extremity, Open Approach (ICD-10-PCS; CPT 27130; principal; 2023-05-18 10:35)
DX: M16.12 Unilateral primary osteoarthritis, left hip (principal); M54.16 Radiculopathy, lumbar region; Z98.1 Arthrodesis status; E78.00 Pure hypercholesterolemia, unspecified; R06.02 Shortness of breath
CPT/HCPCS: 27130; 01214; 36415; 73502; 80048; 82962; 82985; 83036; 83735; 85025; 85610; 85730; 86850; 86900; 86901; 87081; 88305; 88311; 93005; 97162; C1776; J7120; J2405; J3475

== ENCOUNTER 2023-06-24 12:00 | Outpatient (RCR) | payer MEDICARE, SELFPAY ==
--- NOTE | 2023-05-21 14:47 | HP.PTEVAL ---
Patient's Visit Information Visit Information Visit Information: DONALD JONES is a 68 year old M referred to Physical Therapy by Dr. Julio César Ugalde DO with a diagnosis of L JOSEPH (DOS: 05/18/2023). Date of Evaluation: 05/21/23 Physical Therapist: Fabián Rivera DPT Visit Plan Frequency: 2x /Week Duration: 6 Weeks Plan: -hip ROM (PROM, AROM, AAROM) SLR, heel slides -hip flexor STM and stretching (supine or standing) -gentle strengthening: standing 3 way hip, glute bridge >progress once pain decreases and full ROM has been met -DL and SL balance Posterior hip precautions, goal is to get to no AD with gait Subjective Subjective: Pt presents to PT s/p L JOSEPH 05/18/2023, posterior/lateral approach. Pt reports an 8/10 pain in L hip and is using FWW for all mobility. Pts present during evaluation. Pt received an exercise sheet before being d/c from hospital, has only been able to ankle pumps. Pt able to live mainly on first floor of house, but has 13 steps to get up to second floor to bathroom. Sleeping in a reclinerPt was using a cane occasionally before surgery, but would like to get back to working out regularly and using SPC or no AD at end of rehab. Pt demonstrated good understanding of posterior hip precautions and signs to look for with infection and DVT. Pt denies any thigh or calf pain, no N/T in LLE. Has a RTS as an option if needed. Pt saw surgeon today before PT and reported no issues, pt to take bandage off by Wednesday. Pain Left Hip: Pain Intensity (Out of 10): 8 Pain Intensity Range: 3 and 9 Objective Objective: ROM: L hip - 35 deg flex, >40 with PROM stretching in post L hip, tightness in hip flexors when lying supine, tightness in adductors with gentle BKFO MMT: L - painful glute set, 3/5 L quad with pain in hip, good quad set with heel lift, 2+ AAROM hip flex pulling/pain in post L hip R - hip flex 3+/5, knee ext 4+/5, knee flex 3+/5 with pain in L hip PALPATION: tightness in L hip flexors, no pain with calf squeeze, tenderness in L side just sup to incision OBSERVATION: bandage still intact, some blood contained within bandage, mild bruising around incision GAIT: step-to with FWW, but after a few steps, able to perform step-through with increase UE use while in L stance phase STAIRS: step to pattern, little to no pain with ascending, trialed two methods for descending and unilateral HR + cane worked best, educated on technique, SBA provided for safety STS: from elevated surface, pt weight shifted to R to avoid pain, kept leg out in front to avoid flex SUPINE<>SIT: provided support to lift and lower LLE, provided Rola to boost trunk while swiveling to EOB Pt painful as expected, motivated to perform ex. Pt educated to perform HEP daily, icing as needed, walking frequently, and attempting to lay flat to stretch hip flexors (can place pillow under hips). Balance/Special Test Scores WOMAC Total Score: 74 WOMAC Percentatge: 2.6400 Goals Goal 1:: Pt will achieve full L hip ROM with <2/10 pain Goal Time Frame: 2-4 Weeks Goal 2:: Pt will demonstrate symmetrical hip/glutes strength Goal Time Frame: 8-12 Weeks Goal 3:: Pt will amb. >300ft with no AD and <2/10 pain Goal Time Frame: 6-8 Weeks Goal 4:: Pt will be able to stand for 30+ minutes with 0/10 pain and no AD Goal Time Frame: 4-6 Weeks Goal 5:: Pt will navigate stairs with no HR use and reciprocal pattern Goal Time Frame: 8-12 Weeks Goal 6:: Pt will be able to get in and out of bed indep Goal Time Frame: 2-4 Weeks Rehabilitation Potential Physical Therapy Diagnosis: Pt presents with L hip pain, decreased ROM, joint swelling, weakness, and gait deficits s/p L JOSEPH. Pt would benefit from PT services to address ROM, strength, gait with LRD, stairs, and pain needed to increased indep with ADLs. Rehabilitation Potential: Excellent Anticipated Interventions Patient/Client Instruction: Educate patient on: Plan of Care For the Purpose of:: To decrease pain, To decrease swelling/inflammation, To increase ROM, To improve nutrient delivery to tissue, To increase oxygenation perfusion, To improve muscle performance and motor function, To improve ability to perform ADL's, To increase tolerance to activity/condition/position, To improve performance and independence with ADL's, To decrease level of supervision to perform tasks, To improve ability of physical actions for home/community/work/leisure, To improve gait and locomotor functions, To improve health of tissue, To decrease soft tissue restriction, To increase flexibility/ROM, To improve safety with gait, To assume or resume ADL's, To improve safety, To improve health and function, To foster healthy habits, To improve self management, To improve ability to perform tasks related to life management and To improve tolerance to ADL's Therapeutic Exercise to Include: Strength training, Balance training, Flexibilty training, Gait and locomotor training, Neuromotor development, Passive ROM and Active ROM For the Purpose of:: To decrease pain, To decrease swelling/inflammation, To increase ROM, To improve nutrient delivery to tissue, To increase oxygenation perfusion, To improve muscle performance and motor function, To improve ability to perform ADL's, To increase tolerance to activity/condition/position, To improve performance and independence with ADL's, To decrease level of supervision to perform tasks, To improve ability of physical actions for home/community/work/leisure, To improve gait and locomotor functions, To improve health of tissue, To improve safety with gait, To assume or resume ADL's, To improve safety, To improve health and function, To improve self management, To improve ability to perform tasks related to life management and To improve tolerance to ADL's Manual Therapy Techniques to Include: Mobilization, Passive ROM and Soft tissue mobilization For the Purpose of:: To decrease pain, To decrease swelling/inflammation, To increase ROM, To improve health of tissue, To decrease soft tissue restriction, To increase flexibility/ROM and To improve tolerance to ADL's Assistive Devices: Cane For the Purpose of:: To improve gait and locomotor functions and To improve safety with gait TENS: Yes Cryotherapy (ice pack, ice massage): Yes For the Purpose of:: To decrease pain, To decrease swelling/inflammation, To increase ROM, To improve health of tissue, To decrease soft tissue restriction and To increase flexibility/ROM Text: Thank you for the opportunity to evaluate your patient. For Medicare and Medicare HMO plans, please review the plan of care and approve it. It will need to be FAXED BACK to us at [phone] for Medicare purposes. For Medicare only, by signing this I certify the plan of care. Please let me know if there are questions or concerns regarding this plan of care. Physician Signature: Date:
--- NOTE | 2023-06-24 12:33 | HP.PTREVAL ---
Re-Evaluation Intro: Dr. Julio César Ugalde, DO, It has been my pleasure to treat DONALD JONES over the last 10 visits for L JOSEPH (DOS: 05/18/2023). Please see the progress note below for an update on the physical therapy plan of care! Subjective Subjective: Pt. reports overall doing well. No pain. Pt. to follow up with physician next week. Sleeping well. He does have some stiffness that improves with stretching. Objective Objective/Function: ROM: good no major restrictions, better HS length. MMT: LLE: hip flexion 21#, abd 19# gait: Pt. ambulates with normal gait pattern, slightly less L hip extension compared to R side. stairs: normal with reciprocal pattern without use of HR. Pt. is overall doing well. He follows up with physician next week, but at this point in time I would recommend progressing to I gym program. I talked to him about staying with machines and progressing more towards free weights as he progresses. I encouraged him to talk with physician about this as well. Plan Plan Plan: Pt. to see physician next week. If all is okay pt. will be DC. Balance/Gait/Functional tests Balance/Special Test Scores Lower Extremity Functional Score: 68 TUG Test Time Seconds: 8.2 Tug Test: <10 sec.=free mobile 30 Second Chair Rise Test Seconds: 15 6 Minute Walk Test: 1472 no AD WOMAC Total Score: 74 WOMAC Percentage: 2.6400 Goals Goals Goal 1:: Pt will achieve full L hip ROM with <2/10 pain Goal Time Frame: 2-4 Weeks Goal Progress: Goal Met Goal 2:: Pt will demonstrate symmetrical hip/glutes strength Goal Time Frame: 8-12 Weeks Goal Progress: Goal Met Goal 3:: Pt will amb. >300ft with no AD and <2/10 pain Goal Time Frame: 6-8 Weeks Goal Progress: Goal Met Goal 4:: Pt will be able to stand for 30+ minutes with 0/10 pain and no AD Goal Time Frame: 4-6 Weeks Goal Progress: Goal Met Goal 5:: Pt will navigate stairs with no HR use and reciprocal pattern Goal Time Frame: 8-12 Weeks Goal Progress: Goal Met Goal 6:: Pt will be able to get in and out of bed indep Goal Time Frame: 2-4 Weeks Goal Progress: Goal Met Anticipated Interventions Anticipated Interventions Patient/Client Instruction: Educate patient on: Plan of Care For the Purpose of:: To decrease pain, To decrease swelling/inflammation, To increase ROM, To improve nutrient delivery to tissue, To increase oxygenation perfusion, To improve muscle performance and motor function, To improve ability to perform ADL's, To increase tolerance to activity/condition/position, To improve performance and independence with ADL's, To decrease level of supervision to perform tasks, To improve ability of physical actions for home/community/work/leisure, To improve gait and locomotor functions, To improve health of tissue, To decrease soft tissue restriction, To increase flexibility/ROM, To improve safety with gait, To assume or resume ADL's, To improve safety, To improve health and function, To foster healthy habits, To improve self management, To improve ability to perform tasks related to life management and To improve tolerance to ADL's Therapeutic Exercise to Include: Strength training, Balance training, Flexibilty training, Gait and locomotor training, Neuromotor development, Passive ROM and Active ROM For the Purpose of:: To decrease pain, To decrease swelling/inflammation, To increase ROM, To improve nutrient delivery to tissue, To increase oxygenation perfusion, To improve muscle performance and motor function, To improve ability to perform ADL's, To increase tolerance to activity/condition/position, To improve performance and independence with ADL's, To decrease level of supervision to perform tasks, To improve ability of physical actions for home/community/work/leisure, To improve gait and locomotor functions, To improve health of tissue, To improve safety with gait, To assume or resume ADL's, To improve safety, To improve health and function, To improve self management, To improve ability to perform tasks related to life management and To improve tolerance to ADL's Manual Therapy Techniques to Include: Mobilization, Passive ROM and Soft tissue mobilization For the Purpose of:: To decrease pain, To decrease swelling/inflammation, To increase ROM, To improve health of tissue, To decrease soft tissue restriction, To increase flexibility/ROM and To improve tolerance to ADL's Assistive Devices: Cane For the Purpose of:: To improve gait and locomotor functions and To improve safety with gait TENS: Yes Cryotherapy (ice pack, ice massage): Yes For the Purpose of:: To decrease pain, To decrease swelling/inflammation, To increase ROM, To improve health of tissue, To decrease soft tissue restriction and To increase flexibility/ROM Re-Evaluation Ending Re-evaluation ending: Please do not hesitate to contact me at [phone] by phone or if you have questions or concerns regarding this new plan of care! Sincerely, KARELY MelchorT
--- NOTE | 2023-10-14 15:43 | HP.PT.NRP ---
Patient Information Patient Information: DONALD JONES was seen in my office for initial evaluation on 05/21/23. The following Plan of Care was established for this patient: POC Established Initial Frequency: 2x /Week Initial Duration: 6 Weeks Anticipated Interventions Patient/Client Instruction: Educate patient on: Plan of Care For the Purpose of:: To decrease pain, To decrease swelling/inflammation, To increase ROM, To improve nutrient delivery to tissue, To increase oxygenation perfusion, To improve muscle performance and motor function, To improve ability to perform ADL's, To increase tolerance to activity/condition/position, To improve performance and independence with ADL's, To decrease level of supervision to perform tasks, To improve ability of physical actions for home/community/work/leisure, To improve gait and locomotor functions, To improve health of tissue, To decrease soft tissue restriction, To increase flexibility/ROM, To improve safety with gait, To assume or resume ADL's, To improve safety, To improve health and function, To foster healthy habits, To improve self management, To improve ability to perform tasks related to life management and To improve tolerance to ADL's Therapeutic Exercise to Include: Strength training, Balance training, Flexibilty training, Gait and locomotor training, Neuromotor development, Passive ROM and Active ROM For the Purpose of:: To decrease pain, To decrease swelling/inflammation, To increase ROM, To improve nutrient delivery to tissue, To increase oxygenation perfusion, To improve muscle performance and motor function, To improve ability to perform ADL's, To increase tolerance to activity/condition/position, To improve performance and independence with ADL's, To decrease level of supervision to perform tasks, To improve ability of physical actions for home/community/work/leisure, To improve gait and locomotor functions, To improve health of tissue, To improve safety with gait, To assume or resume ADL's, To improve safety, To improve health and function, To improve self management, To improve ability to perform tasks related to life management and To improve tolerance to ADL's Manual Therapy Techniques to Include: Mobilization, Passive ROM and Soft tissue mobilization For the Purpose of:: To decrease pain, To decrease swelling/inflammation, To increase ROM, To improve health of tissue, To decrease soft tissue restriction, To increase flexibility/ROM and To improve tolerance to ADL's Assistive Devices: Cane For the Purpose of:: To improve gait and locomotor functions and To improve safety with gait TENS: Yes Cryotherapy (ice pack, ice massage): Yes For the Purpose of:: To decrease pain, To decrease swelling/inflammation, To increase ROM, To improve health of tissue, To decrease soft tissue restriction and To increase flexibility/ROM Last Seen Last Seen: This patient was last seen in our office 06/24/23. Pertinent comments regarding their Physical therapy will appear below: Pt. was seen for his L JOSEPH. Pt. was doing well at his last visit and was to come back to PT if needed. Pt. will be DC from PT at this point in time. At this point I will be discontinuing this patient from physical therapy. I would be happy to see this patient again in the future if found appropriate by the physician. Thank you! Fabián Rivera, DPT Balance/Gait/Functional tests Balance/Special Test Scores Lower Extremity Functional Score: 68 TUG Test Time Seconds: 8.2 Tug Test: <10 sec.=free mobile 30 Second Chair Rise Test Seconds: 15 6 Minute Walk Test: 1472 no AD WOMAC Total Score: 74 WOMAC Percentage: 2.6400
== END 2023-06-24 19:00 | disposition home or self-care (01) ==
LOC: PT 12:00
PROVIDERS: PCP Nurse Practitioner; Referring Provider Orthopaedic Surgery; Visit Provider Orthopaedic Surgery
DX: M16.12 Unilateral primary osteoarthritis, left hip (principal); Z96.642 Presence of left artificial hip joint
CPT/HCPCS: 97110; 97161; 97530

== ENCOUNTER → 2023-10-05 | Outpatient (CLI) | payer MEDICARE, SELFPAY ==
[2023-10-05 21:45] LABS: Absolute Lymphocyte Count 2.06 X10^3/uL (0.83-4.51); Absolute Neutrophil Count 3.1 X10^3/uL (2.0-7.7); Basophil# 0.05 X10^3/uL; Basophil% 0.9 % (0-1); Eosinophil# 0.12 X10^3/uL; Eosinophils% 2.1 % (0-5); Hematocrit 39.3 % (40-54); Hemoglobin 13.1 g/dL (13.0-16.5); Lymphocyte # 2.06 X10^3/ul (0.83-4.51); Lymphocyte % 35.5 % (19-41); Mean Corp Hgb Conc 33.3 g/dL (32-36); Mean Corpuscular Hgb 30.4 pg (27.0-32.0); Mean Corpuscular Volume 91.2 fL (80-94); Mean Platelet Vol. 11.1 fl (6.2-12.0); Monocyte# 0.42 X10^3/uL; Monocyte% 7.2 % (0-10); NRBC Flagged by Analyzer 0 % (0-5); Neutrophil # 3.14 X10^3/uL (2.7-7.7); Platelet Count 208 K/mm3 (150-450); RBC Distribution Width CV 14.2 % (11.6-14.6); RBC Distribution Width SD 47.4 fl (35.1-43.9); Red Blood Count 4.31 M/mm3 (4.6-6.2); White Blood Count 5.8 K/mm3 (4.4-11.0)
[2023-10-05 22:08] LABS: Hemoglobin A1c 5.2 % (3.8-5.6)
[2023-10-05 22:09] LABS: ALB/GLOB Ratio 1.1 RATIO (0.9-2.4); AST(SGOT) 26 U/L (15-37); Alanine Aminotransfer ALT/SGPT 31 U/L (16-61); Albumin, Serum 3.6 g/dL (3.2-5.0); Alkaline Phosphatase 80 U/L (45-117); Anion Gap 4 (5-15); BUN 14 mg/dL (7-18); BUN/Creat Ratio 12.7 RATIO (10-20); CRP < 2.90 mg/L (0.0-3.0); Calcium,Total 8.5 mg/dL (8.5-10.1); Chloride 109 mmol/L (98-107); Cholesterol 231 mg/dL (200); EST Glomerular Filtration Rate 71 mL/min (>60); Est Glom Filt Rate - Afr Amer 86 mL/min (>60); Globulin 3.4 g/dL (2.2-4.2); Glucose 145 mg/dL (74-106); High Density Lipoprotein 48 mg/dL; PSA,Total - Annual Screen 0.37 ng/mL (0.00-4.00); Potassium 4.5 mmol/L (3.5-5.1); Sodium Level 139 mmol/L (136-145); Triglycerides 160 mg/dL; Very Low Density Lipoprotein 32 mg/dL (5-40)
== END | disposition home or self-care (01) ==
PROVIDERS: PCP Nurse Practitioner; Referring Provider Nurse Practitioner; Visit Provider Nurse Practitioner
DX: R79.89 Other specified abnormal findings of blood chemistry (principal); M54.10 Radiculopathy, site unspecified; R53.83 Other fatigue; Z12.5 Encounter for screening for malignant neoplasm of prostate
CPT/HCPCS: 80053; 80061; 83036; 84153; 85025; 86140; G0103

== ENCOUNTER → 2023-11-23 | Outpatient (CLI) | payer MEDICARE, SELFPAY | END | disposition home or self-care (01) | LOC: PSN 08:01 | PROVIDERS: PCP Nurse Practitioner; Referring Provider Nurse Practitioner Gerontology; Visit Provider Nurse Practitioner Gerontology | DX: R00.2 Palpitations (principal) | CPT/HCPCS: 93225; 93226 ==

== ENCOUNTER → 2023-12-01 | Outpatient (CLI) | payer MEDICARE, SELFPAY ==
--- NOTE | 2023-12-01 18:15 | STRESSREP_ITS ---
Stress Test Report Exercise myocardial perfusion stress test. 68-year-old man with a history of chest pain Stress protocol: Resting EKG demonstrates sinus bradycardia with a rate of 53 bpm resting blood pressure is 122/68 mmHg. The patient exercised according to the regular James protocol for a total duration of 8 minutes and 30 seconds attaining a maximum h eart rate of 120 bpm which was 78% of maximum predicted heart rate; the maximum workload was 10.1 metabolic equivalents. At rest there were no ST or T wave changes noted to suggest ischemia and at peak exercise upsloping ST changes only were noted which did not meet the criteria for ischemia. Occasional premature ventricular complexes were noted. No clinical angina was noted the test was terminated due to the target heart rate being achieved/fatigue. The peak blood pressure was 164/60 mmHg. Rate-pressure product was 19,600. Myocardial perfusion protocol. 14.2 mCi of technetium 99m sestamibi was injected at rest. The patient exercised according to regular James protocol for total duration of 8 minutes and 30 seconds and at peak exercise 44.7 mCi of technetium 99m sestamibi was injected stress images were obtained stress and rest images were reconstructed in comparing the short axis vertical long and horizontal long axis. Gated images were also obtained. Perfusion SPECT analysis: Review of the stress images demonstrate normal uptake of tracer noted in all areas of the myocardium. The resting images similarly demonstrate normal uptake of tracer noted in all areas of the myocardium. No areas of reversibility are noted to suggest ischemia no previous infarct was noted. Gated SPECT analysis: The gated ejection fraction is 71%. Conclusion: Normal exercise myocardial perfusion stress test at a high workload Preserved ejection fraction.
== END | disposition home or self-care (01) ==
LOC: CVS 07:01
PROVIDERS: PCP Nurse Practitioner; Referring Provider Nurse Practitioner Gerontology; Visit Provider Nurse Practitioner Gerontology
DX: R07.9 Chest pain, unspecified (principal)
CPT/HCPCS: 78452; 93017; A9500; A4216

== ENCOUNTER → 2024-03-20 | Outpatient (CLI) | payer MEDICARE, SELFPAY ==
[2024-03-20 23:40] LABS: Rheumatoid Factor < 10.0 IU/mL (<15)
[2024-03-22 14:08] LABS: Anti-Centromere B Ab <0.2 AI (0.0-0.9); Anti-Chromatin <0.2 AI (0.0-0.9); Anti-Jo <0.2 AI (0.0-0.9); Anti-Scleroderma-70 AB <0.2 AI (0.0-0.9); Anti-dsDNA Ab 1 IU/mL (0-9); RNP Ab <0.2 AI (0.0-0.9); SJOGREN'S Anti-SS-A test < 0.2 AI (0.0-0.9); SJOGREN'S Anti-SS-B test < 0.2 AI (0.0-0.9); Smith Ab <0.2 AI (0.0-0.9)
== END | disposition home or self-care (01) ==
PROVIDERS: PCP Nurse Practitioner; Referring Provider Nurse Practitioner; Visit Provider Nurse Practitioner
DX: M79.644 Pain in right finger(s) (principal)
CPT/HCPCS: 86225; 86235; 86431

== ENCOUNTER → 2024-10-24 | Outpatient (CLI) | payer MEDICARE, SELFPAY ==
[2024-10-24 22:16] LABS: Hematocrit 39.4 % (40-54); Hemoglobin 13.5 g/dL (13.0-16.5); Immature Granulocytes Count 0.010 X10^3/uL (0.0-0.0); Mean Corp Hgb Conc 34.3 g/dL (32-36); Mean Corpuscular Volume 94.7 fL (80-94); Mean Platelet Vol. 10.7 fl (6.2-12.0); NRBC Flagged by Analyzer 0 % (0-5); Platelet Count 211 K/mm3 (150-450); RBC Distribution Width CV 13.3 % (11.6-14.6); RBC Distribution Width SD 46.5 fl (35.1-43.9); Red Blood Count 4.16 M/mm3 (4.6-6.2); White Blood Count 6.4 K/mm3 (4.4-11.0)
--- OUTSIDE RECORDS SUMMARY | 2024-10-24 22:41 | XMS RPT_ITS | CCD ---
Author Organization [facility] Care Team Providers Care American Sign Language Interpreter Name Role Phone Alex SOCIAL INSURANCE SPECIALIST, SOCIAL INSURANCE SPECIALIST-C Deepthi Primary Care Provider Alex SOCIAL INSURANCE SPECIALIST, SOCIAL INSURANCE SPECIALIST-C Deepthi Referring Provider Dr. Collin Ventura Attending Provider Dr. Julio César Ugalde Attending Provider Isai SOCIAL INSURANCE SPECIALIST, SOCIAL INSURANCE SPECIALIST-C Deepthi Primary Care Provider Alex SOCIAL INSURANCE SPECIALIST, SOCIAL INSURANCE SPECIALIST-C Deepthi Referring Provider Dr. Collin Ventura Attending Provider Dr. Julio César Ugalde Attending Provider Dr. Wiley Arteaga Attending Provider Dr. Julio César Ugalde Referring Provider Dr. Julio César Ugalde Other Provider Yuli Greenberg Attending Provider Unavailable MD Wallace Hanna Attending Provider Alex SOCIAL INSURANCE SPECIALIST-C, Deepthi Primary Care Provider Alex SOCIAL INSURANCE SPECIALIST-C, Deepthi Referring Provider Dr. Julio César Ugalde DO Attending Provider Dr. Wiley Arteaga MD Attending Provider [phone] Alex SOCIAL INSURANCE SPECIALIST, Deepthi Primary Care Unavailable Omid SOCIAL INSURANCE SPECIALIST, Tere Referring Unavailable Omid SOCIAL INSURANCE SPECIALIST, Tere Attending Unavailable Alex SOCIAL INSURANCE SPECIALIST, Deepthi Primary Care Unavailable Alex SOCIAL INSURANCE SPECIALIST, Deepthi Referring Unavailable Alex SOCIAL INSURANCE SPECIALIST, Deepthi Attending Unavailable Alex SOCIAL INSURANCE SPECIALIST, Deepthi Primary Care Unavailable Alex SOCIAL INSURANCE SPECIALIST, Deepthi Referring Unavailable Alex SOCIAL INSURANCE SPECIALIST, Deepthi Attending Unavailable Alex SOCIAL INSURANCE SPECIALIST, Deepthi Primary Care Unavailable Wiley Arteaga Attending Unavailable Omid SOCIAL INSURANCE SPECIALIST, Tere Consulting Unavailable Omid SOCIAL INSURANCE SPECIALIST, Tere Referring Unavailable Isai SOCIAL INSURANCE SPECIALIST, Deepthi Primary Care Unavailable Chandler, Corolla Attending Unavailable Alex SOCIAL INSURANCE SPECIALIST, Deepthi Primary Care Unavailable Alex SOCIAL INSURANCE SPECIALIST, Deepthi Referring Unavailable Omid SOCIAL INSURANCE SPECIALIST, Tere Attending Unavailable Alex SOCIAL INSURANCE SPECIALIST, Deepthi Primary Care Unavailable Alex SOCIAL INSURANCE SPECIALIST, Deepthi Referring Unavailable Dario SOCIAL INSURANCE SPECIALIST, George Salcedo Attending Unavailable Alex SOCIAL INSURANCE SPECIALIST, Deepthi Primary Care Unavailable Alex SOCIAL INSURANCE SPECIALIST, Deepthi Referring Unavailable Julio César Ugalde Attending Unavailable Alex SOCIAL INSURANCE SPECIALIST, Deepthi Primary Care Unavailable ChandlerWiley goodrich Attending Unavailable Alex SOCIAL INSURANCE SPECIALIST, Deepthi Primary Care Unavailable DarylrusoJulio César Attending Unavailable Alex SOCIAL INSURANCE SPECIALIST, Deepthi Referring Unavailable Chandler, Wiley Attending Unavailable Alex SOCIAL INSURANCE SPECIALIST, Deepthi Primary Care Unavailable Alex SOCIAL INSURANCE SPECIALIST, Deepthi Primary Care Unavailable Alex SOCIAL INSURANCE SPECIALIST, Deepthi Referring Unavailable YosoJulio César Attending Unavailable Alex SOCIAL INSURANCE SPECIALIST, Deepthi Primary Care Unavailable Anne SOCIAL INSURANCE SPECIALIST, Tere Referring Unavailable Chandler, Wiley Attending Unavailable Alex SOCIAL INSURANCE SPECIALIST, Deepthi Primary Care Unavailable Alex SOCIAL INSURANCE SPECIALIST, Deepthi Referring Unavailable Roof SOCIAL INSURANCE SPECIALIST, George Salcedo Attending Unavailable Alex SOCIAL INSURANCE SPECIALIST, Deepthi Primary Care Unavailable Omid SOCIAL INSURANCE SPECIALIST, Tere Attending Unavailable Alex SOCIAL INSURANCE SPECIALIST, Deepthi Primary Care Unavailable Omid SOCIAL INSURANCE SPECIALIST, Tere Referring Unavailable Omid SOCIAL INSURANCE SPECIALIST, Tere Attending Unavailable Allergies Allergy Classification Reported Allergen(s) Allergy Type Date of Onset Reaction(s) Facility (9 sources) Penicillins Allergy to substance 09-30-2016 [facility] (1 source) Penicillins Drug allergy (disorder) 07-19-2024 [facility] Repository Medications Current Medications Medication Drug Class(es) Dates Sig (Normalized) Sig (Original) ascorbic acid 1000 mg extended release oral tablet (4 sources) Vitamin C Start: 05-10-2023 take 1 tablet by mouth once daily Ascorbic Acid (Vitamin C) (C Complex) 1,000 mg tablet extended release Active 1000 mg PO DAILY May 10, 2023 12:00am Garlic (4 sources) Non-Standardized Food Allergenic Extract Start: 05-10-2023 take 1 capsule by mouth once daily Garlic 1,000 mg capsule Active 1000 mg PO DAILY May 10, 2023 12:00am Start: 05-10-2023 take 1000 mg by mouth once kirsten ly Garlic Active 1000 MG PO DAILY May 10, 2023 12:00am ibuprofen 800 mg oral tablet (20 sources) Nonsteroidal Anti-inflammatory Drug Start: 06-10-2023 take 1 tablet by mouth every eight hours as needed for pain Ibuprofen 800 mg tablet Active 800 mg PO Q8H as needed for pain 90 June 10, 2023 12:00am Start: 05-10-2023 End: 10-05-2023 take 1 tablet by mouth twice daily Ibuprofen 800 mg tablet Discontinued 800 mg PO TWICE A DAY May 10, 2023 12:00am October 05, 2023 4:21pm On Hold: Resume on 06/10/23. May resume after completion of blood thinner Start: 10-25-2019 End: 03-17-2023 take 1 tablet by mouth three times daily as needed for pain Ibuprofen 800 mg tablet Discontinued 800 mg PO THREE TIMES A DAY as needed for pain 60 April 13, 2022 5:42pm March 17, 2023 9:08am [place] (Nk) (2 sources) Start: 03-17-2023 [place] (Nk) A ctive March 17, 2023 12:00am [place] (13 sources) Start: 05-10-2023 take 1 capsule by mo ut once daily at mealtime [place] 500 mg capsule Active 500 mg PO DAILY May 10, 2023 12:00am give with food (meal/snack) Start: 05-10-2023 take 500 mg by mouth once daily at mealtime [place] Active 500 MG PO DAILY May 10, 2023 12:00am give with food (meal/snack) Start: 12-14-2017 End: 03-17-2023 take 1 capsule by mouth twice daily [place] 160 mg capsule Discontinued 160 mg PO TWICE A DAY December 14, 2017 12:00am March 17, 2023 9:08am Start: 12-14-2017 End: 03-17-2023 take 160 mg by mouth twice daily [place] Disconti nued 160 MG PO TWICE A DAY December 14, 2017 12:00am March 17, 2023 9:08am Start: 12-14-2017 End: 03-17-2023 take 160 mg by mouth twice daily [place] Disconti nued 160 MG PO TWICE A DAY December 13, 2017 11:00pm March 17, 2023 8:08am Start: 12-14-2017 take 160 mg by mouth twice kirsten ly [place] Active 160 MG PO TWICE A DAY December 14, 2017 12:00am Start: 12-14-2017 take 160 mg by mouth twice kirsten ly [place] Active 160 MG PO TWICE A DAY December 13, 2017 11:00pm vitamin e 180 mg oral capsule (4 sources) Start: 05-10-2023 take 1 capsule by mouth once daily Vitamin E 268 mg (400 unit) capsule Active 268 mg PO DAILY May 10, 2023 12:00am Completed/Discontinued Medications Medication Drug Class(es) Dates Sig (Normalized) Sig (Original) acetaminophen 500 mg oral tablet (4 sources) Start: 05-18-2023 End: 06-19-2024 take 2 tablets by mouth every six hours as needed Acetaminophen 500 mg tablet Discontinued 1000 mg PO EVERY 6 HOURS NEEDED 100 May 18, 2023 12:00am June 19, 2024 8:50am Start: 05-18-2023 take 1000 mg by mout h every six hours as needed Acetaminophen Active 1000 MG PO EVERY 6 HOURS NEEDED 100 May 18, 2023 12:00am [id number] 200 actuat albuterol 0.09 mg/actuat metered dose inhaler (2 sources) beta2-Adrenergic Agonist Start: 11-15-2023 End: 03-16-2024 Albuterol Sulfate 90 mcg/actuation HFA aerosol inhaler Discontinued 2 NMA INHALATION EVERY 6 HOURS as needed for coughing 8.5 November 15, 2023 12:00am March 16, 2024 9:45am apixaban 2.5 mg oral tablet (4 sources) Factor Xa Inhibitor Start: 05-18-2023 End: 06-10-2023 take 1 tablet by mouth twice daily in the morning Apixaban (Eliquis) 2.5 mg tablet Discontinued 2.5 mg PO TWICE A DAY 42 May 18, 2023 12:00am June 10, 2023 8:25pm Begin morning after surgery apple cider vinegar 600 mg oral capsule (9 sources) Start: 07-31-2019 End: 10-25-2019 take 1 capsule by mouth once daily Apple Cider Vinegar 600 MG capsule Discontinued 600 mg PO DAILY July 31, 2019 12:00am October 25, 2019 5:02pm atorvastatin 20 mg oral tablet (7 sources) HMG-CoA Reductase Inhibitor Start: 08-05-2022 End: 03-17-2023 take 1 tablet by mouth once daily Atorvastatin (Lipitor) 20 mg tablet Discontinued 20 mg PO DAILY August 05, 2022 12:00am March 17, 2023 9:08am azithromycin 250 mg oral tablet (20 sources) Macrolide Antimicrobial Start: 12-24-2022 End: 12-29-2022 take 2 tablets by mouth once daily, then take 1 tablet by mouth once daily at mealtime Azithromycin 250 mg tablet Discontinued 250 mg PO daily 08 03December 24, 2022 5:17pm December 28, 2022 12:00am December 29, 2022 12:05am 2 po qd for 1 day then 1 po qd for 4 days with food or after eating Start: 06-09-2022 End: 06-14-2022 take 2 tablets by mouth once daily, then take 1 tablet by mouth once daily at mealtime Azithromycin 250 mg tablet Discontinued 250 mg PO daily 08 03June 09, 2022 6:47pm June 13, 2022 12:00am June 14, 2022 12:05am 2 po qd for 1 day then 1 po qd for 4 days with food or after eating Start: 01-09-2022 End: 01-14-2022 take 2 tablets by mouth once daily, then take 1 tablet by mouth once daily at mealtime Azithromycin 250 mg tablet Discontinued 250 mg PO daily 6 January 09, 2022 1:00am January 13, 2022 1:00am January 14, 2022 1:04am 2 po qd for 1 day then 1 po qd for 4 days with food or after eating Start: 05-23-2021 End: 05-28-2021 take 2 tablets by mouth once daily, then take 1 tablet by mouth once daily at mealtime Azithromycin 250 mg tablet Discontinued 250 mg PO daily 6 May 23, 2021 12:00am May 27, 2021 12:00am May 28, 2021 12:03am 2 po qd for 1 day then 1 po qd for 4 days with food or after eating Start: 07-31-2019 End: 10-25-2019 take 2 tablets by mouth once daily, then take 1 tablet by mouth once daily Azithromycin 250 MG tablet Discontinued 250 mg PO DIRECTED July 31, 2019 12:00am October 25, 2019 5:02pm TAKE 2 TABLETS 1ST DAY THEN 1 TABLET DAILY FOR NEXT 4 DAYS. Start: 12-14-2017 End: 12-19-2017 take 2 tablets by mouth once daily, then take 1 tablet by mouth once daily at mealtime Azithromycin 250 mg tablet Discontinued 250 mg PO daily 6 December 14, 2017 12:00am December 18, 2017 12:00am December 19, 2017 12:08am 2 po qd for 1 day then 1 po qd for 4 days with food or after eating cefuroxime 500 mg oral tablet (19 sources) Cephalosporin Antibacterial Start: 11-15-2023 End: 11-19-2023 take 1 tablet by mouth twice daily Cefuroxime Axetil 500 mg tablet Discontinued 500 mg PO TWICE A DAY November 15, 2023 5:13pm November 19, 2023 8:30am Start: 04-13-2022 End: 06-09-2022 take 1 tablet by mouth twice daily Cefuroxime Axetil 500 mg tablet Discontinued 500 mg PO TWICE A DAY April 13, 2022 1:00am June 09, 2022 6:47pm Start: 10-25-2019 End: 01-18-2020 take 1 tablet by mouth twice daily Cefuroxime Axetil 500 mg tablet Discontinued 500 mg PO TWICE A DAY October 25, 2019 12:00am January 18, 2020 6:33pm cephalexin 500 mg oral capsule (15 sources) Cephalosporin Antibacterial Start: 08-04-2023 End: 11-19-2023 take 4 tablets by mouth every hour Cephalexin 500 mg capsule Discontinued 2000 mg PO ONCE August 04, 2023 12:00am November 19, 2023 8:30am Take 4 tabs within 1 hour prior to dental procedure Start: 05-18-2023 End: 08-04-2023 Cephalexin 500 mg capsule Discontinued 1000 mg PO EVERY 8 HOURS May 18, 2023 12:00am August 04, 2023 9:48am take 2 tabs at 9:00 pm and 2 tabs after 5 am when you wake up Start: 05-18-2023 Cephalexin Act alena 1000 MG PO EVERY 8 HOURS May 18, 2023 12:00am take 2 tabs at 9:00 pm and 2 tabs after 5 am when you wake up Start: 01-18-2020 End: 01-28-2020 take 1 capsule by mouth twice daily Cephalexin 500 mg capsule Discontinued 500 mg PO TWICE A DAY 18 12January 18, 2020 1:00am January 27, 2020 1:00am January 28, 2020 1:02am cholecalciferol 0.025 mg oral tablet (9 sources) Vitamin D Start: 07-31-2019 End: 08-05-2022 take 1 tablet by mouth once daily Cholecalciferol (Vitamin D3) 1,000 UNIT tablet Discontinued 1000 U PO DAILY July 31, 2019 12:00am August 05, 2022 10:16am cilostazol 100 mg oral tablet (2 sources) Phosphodiesterase 3 Inhibitor Start: 10-05-2023 End: 11-15-2023 take 1 tablet by mouth twice daily Cilostazol 100 mg tablet Discontinued 100 mg PO TWICE A DAY October 05, 2023 12:00am November 15, 2023 5:11pm cinnamon bark 500 mg oral capsule (4 sources) Start: 05-10-2023 End: 11-19-2023 take 1 capsule by mouth once daily Cinnamon Bark (Cinnamon) 500 mg capsule Discontinued 500 mg PO DAILY May 10, 2023 12:00am November 19, 2023 8:30am Ciprofloxacin (9 sources) Quinolone Antimicrobial Start: 09-24-2020 End: 09-25-2020 Ciprofloxacin Hcl 0.3 % ointment Discontinued 0 OPHTHALMIC .COMPLEX 3.5 September 24, 2020 12:00am September 25, 2020 4:24pm apply 1/2 inch ribbon into affected eye(s) 3 times daily for 2 days; then twice daily for 5 days ophthalmic (eye) Start: 09-24-2020 End: 09-25-2020 Ciprofloxacin Hcl Discontinu ed 0 OPHTHALMIC .COMPLEX 3.5 September 24, 2020 12:00am September 25, 2020 4:24pm apply 1/2 inch ribbon into affected eye(s) 3 times daily for 2 days; then twice daily for 5 days ophthalmic (eye) Start: 09-24-2020 End: 09-25-2020 Ciprofloxacin Hcl Discontinu ed 0 OPHTHALMIC .COMPLEX 3.5 September 23, 2020 11:00pm September 25, 2020 3:24pm apply 1/2 inch ribbon into affected eye(s) 3 times daily for 2 days; then twice daily for 5 days ophthalmic (eye) cyclobenzaprine hydrochloride 5 mg oral tablet (7 sources) Muscle Relaxant Start: 01-14-2023 End: 03-17-2023 take 1 tablet by mouth three times daily as needed for muscle spasms Cyclobenzaprine 5 mg tablet Discontinued 5 mg PO THREE TIMES A DAY as needed for muscle spasm 60 January 14, 2023 1:00am March 17, 2023 9:08am diclofenac sodium 0.01 mg/mg topical gel (4 sources) Nonsteroidal Anti-inflammatory Drug Start: 05-10-2023 End: 11-19-2023 Diclofenac Sodium (Voltaren Arthritis Pain) 1 % gel Discontinued 2 g TOPICAL DAILY May 10, 2023 12:00am November 19, 2023 8:30am gabapentin 100 mg oral capsule (9 sources) Anti-epileptic Agent Start: 01-30-2020 End: 02-29-2020 take 2 capsules by mouth four times daily as needed Gabapentin 100 mg capsule Discontinued 200 mg PO .qid as needed for tingling 360 January 30, 2020 1:00am February 28, 2020 1:00am February 29, 2020 1:02am Start: 01-30-2020 End: 02-29-2020 take 200 mg by mouth four times daily Gabapentin Discontinued 200 MG PO .qid 360 January 30, 2020 1:00am February 29, 2020 1:02am linseed oil 1000 mg oral capsule (9 sources) Start: 12-14-2017 End: 01-09-2022 take 1 capsule by mouth once daily Flaxseed Oil 1,000 mg capsule Discontinued 1000 mg PO DAILY December 14, 2017 12:00am January 09, 2022 7:15pm magnesium oxide 400 mg oral capsule (9 sources) Start: 01-18-2020 End: 03-17-2023 take 1 capsule by mouth once daily Magnesium Oxide 400 mg magnesium capsule Discontinued 400 mg PO DAILY January 18, 2020 1:00am March 17, 2023 9:08am meclizine hydrochloride 12.5 mg oral tablet (9 sources) Antiemetic Start: 12-14-2017 End: 12-08-2018 take 1 tablet by mouth three times daily as needed Meclizine 12.5 mg tablet Discontinued 12.5 mg PO THREE TIMES A DAY as needed December 14, 2017 12:00am December 08, 2018 6:20pm meloxicam 15 mg oral tablet (2 sources) Nonsteroidal Anti-inflammatory Drug Start: 03-20-2024 End: 06-19-2024 take 1 tablet by mouth once daily Meloxicam 15 mg tablet Discontinued 15 mg PO daily March 20, 2024 1:00am June 19, 2024 8:50am ofloxacin 3 mg/ml ophthalmic solution (9 sources) Quinolone Antimicrobial Start: 09-25-2020 End: 05-23-2021 Ofloxacin 0.3 % drops Discontinued 0 OPHTHALMIC .COMPLEX September 25, 2020 12:00am May 23, 2021 4:37pm put 1-2 drps into affected eye(s) every 2-4 h x 2 days, then 1-2 drps 4 times/day days 3-7 ophthalmic (eye) Start: 09-25-2020 End: 05-23-2021 Ofloxacin Discontinued 0 OPH THALMIC .COMPLEX September 25, 2020 12:00am May 23, 2021 4:37pm put 1-2 drps into affected eye(s) every 2-4 h x 2 days, then 1-2 drps 4 times/day days 3-7 ophthalmic (eye) Satin-3 Fatty Acids (7 sources) Start: 07-31-2019 End: 03-17-2023 take 1000 mg by mouth once daily Satin-3 Fatty Acids Discontinued 1000 MG PO DAILY July 31, 2019 12:00am March 17, 2023 9:08am Start: 07-31-2019 End: 03-17-2023 take 1000 mg by mouth once daily Satin-3 Fatty Acids Discontinued 1000 MG PO DAILY July 30, 2019 11:00pm March 17, 2023 8:08am Start: 07-31-2019 take 1000 mg by mout h once daily Satin-3 Fatty Acids Active 1000 MG PO DAILY July 31, 2019 12:00am Start: 07-31-2019 take 1000 mg by mout h once daily Satin-3 Fatty Acids Active 1000 MG PO DAILY July 30, 2019 11:00pm Satin-3 Fatty Acids 1,000 MG capsule (2 sources) Start: 07-31-2019 End: 03-17-2023 take 1 capsule by mouth once daily Satin-3 Fatty Acids 1,000 MG capsule Discontinued 1000 mg PO DAILY July 31, 2019 12:00am March 17, 2023 9:08am oxyCODONE hydrochloride 5 mg oral capsule (10 sources) Opioid Agonist Start: 05-31-2023 End: 06-07-2023 take 1 capsule by mouth every six hours as needed for pain Oxycodone 5 mg capsule Discontinued 5 mg PO EVERY 6 HOURS as needed for pain 20 7 May 31, 2023 June 06, 2023 12:00am June 07, 2023 12:05am Start: 05-18-2023 End: 06-28-2023 take 5-10 mg by mouth every four hours as needed for pain Oxycodone 5 mg tablet Discontinued 5 - 10 mg PO EVERY 4 HOURS as needed for Pain Score 6-10/10 60 7 May 21, 2023 May 27, 2023 12:00am May 28, 2023 12:06am wean down when you can and space out as pain subsides. predniSONE 20 mg oral tablet (20 sources) Start: 01-14-2023 End: 03-17-2023 take 2 tablets by mouth once daily Prednisone 20 mg tablet Discontinued 40 mg PO DAILY January 14, 2023 1:00am March 17, 2023 9:08am Start: 01-14-2023 End: 03-17-2023 take 40 mg by mouth once daily Prednisone Discontinued 40 MG PO DAILY January 14, 2023 1:00am March 17, 2023 9:08am Start: 01-09-2022 End: 06-09-2022 take 2 tablets by mouth once daily Prednisone 20 mg tablet Discontinued 40 mg PO DAILY April 13, 2022 5:42pm June 09, 2022 6:46pm Start: 01-09-2022 End: 06-09-2022 take 40 mg by mouth once daily Prednisone Discontinued 40 MG PO DAILY April 13, 2022 5:42pm June 09, 2022 6:46pm Start: 01-19-2020 End: 01-26-2020 take 2 tablets by mouth once daily Prednisone 20 mg tablet Discontinued 40 mg PO DAILY 14 January 19, 2020 1:00am January 25, 2020 1:00am January 26, 2020 1:03am Start: 01-19-2020 End: 01-26-2020 take 40 mg by mouth once daily Prednisone Discontinued 40 MG PO DAILY 11 09January 19, 2020 1:00am January 26, 2020 1:03am tadalafil 20 mg oral tablet (9 sources) Phosphodiesterase 5 Inhibitor Start: 12-14-2017 End: 12-08-2018 take 1 tablet by mouth once as needed Tadalafil (Cialis) 20 mg tablet Discontinued 20 mg PO ONCE as needed December 14, 2017 12:00am December 08, 2018 6:21pm tamsulosin hydrochloride 0.4 mg oral capsule (3 sources) alpha-Adrenergic Christi Start: 05-20-2023 End: 08-04-2023 take 1 capsule by mouth every twenty-four hours Tamsulosin (Flomax) 0.4 mg capsule Discontinued 0.4 mg PO Q24H May 20, 2023 12:00am August 04, 2023 9:49am Zinc (9 sources) Start: 01-18-2020 End: 03-17-2023 take 1 tablet by mouth once daily Zinc 50 mg tablet Discontinued 50 mg PO DAILY January 18, 2020 1:00am March 17, 2023 9:09am Start: 01-18-2020 End: 03-17-2023 take 50 mg by mouth once daily Zinc Discontinued 50 MG PO DAILY January 18, 2020 1:00am March 17, 2023 9:09am Start: 01-18-2020 End: 03-17-2023 take 50 mg by mouth once daily Zinc Discontinued 50 MG PO DAILY January 18, 2020 12:00am March 17, 2023 8:09am Start: 01-18-2020 take 50 mg by mouth once daily Zinc Active 50 MG PO DAILY January 18, 2020 1:00am Start: 01-18-2020 take 50 mg by mouth once daily Zinc Active 50 MG PO DAILY January 18, 2020 12:00am Problems Active Problems Problem Classification Problem Date Documented Date Episodic/Chronic Conditions associated with dizziness or vertigo (8 sources) Vertigo; Translations: [Dizziness and giddiness] 06-09-2022 Episodic Disorders of lipid metabolism (19 sources) Hypercholesterolemia; Translations: [Pure hypercholesterolemia, unspecified] Onset: 03-16-2024 01-09-2022 Chronic Fever of unknown origin (9 sources) Fever; Translations: [Fever, unspecified] 07-31-2019 Episodic Genitourinary symptoms and ill-defined conditions (9 sources) Increased frequency of urination; Translations: [Frequency of micturition] 01-09-2022 Episodic Headache; including migraine (9 sources) Ophthalmic migraine; Translations: [Migraine with aura, not intractable, without status migrainosus] 01-09-2022 Chronic Headache; including migraine (9 sources) Pain in face; Translations: [Left-sided face pain] 05-23-2021 Episodic Immunizations and screening for infectious disease (18 sources) Contact with or exposure to other viral diseases; Translations: [Close exposure to COVID-19 virus] 01-19-2020 Episodic Inflammation; infection of eye (except that caused by tuberculosis or sexually transmitteddisease) (9 sources) Hordeolum; Translations: [Hordeolum externum right eye, unspecified eyelid] 09-24-2020 Episodic Lymphadenitis (9 sources) Head and neck lymphadenopathy; Translations: [Generalized enlarged lymph nodes] 10-25-2019 Episodic Malaise and fatigue (5 sources) Fatigue; Translations: [Other fatigue] 07-09-2022 Episodic Osteoarthritis (16 sources) Osteoarthritis of left hip joint; Translations: [Unilateral primary osteoarthritis, left hip] Onset: 07-19-2024 03-17-2023 Chronic Other aftercare (3 sources) Follow-up status; Translations: [Encounter for other orthopedic aftercare] 05-21-2023 Episodic Other aftercare (2 sources) Encounter for other orthopedic aftercare; Translations: [Unspecified orthopedic aftercare] 05-21-2023 Episodic Other circulatory disease (9 sources) Elevated blood-pressure reading without diagnosis of hypertension; Translations: [Elevated blood-pressure reading, without diagnosis of hypertension] 07-31-2019 Episodic Other connective tissue disease (4 sources) History of total hip arthroplasty; Translations: [Presence of left artificial hip joint] 06-19-2024 Chronic Other connective tissue disease (1 source) Presence of left artificial hip joint; Translations: [Presence of left artificial hip joint] Onset: 06-19-2024 Chronic Other connective tissue disease (9 sources) Cramp in lower limb; Translations: [Cramp and spasm] 01-09-2022 Episodic Other connective tissue disease (8 sources) Muscle weakness of limb; Translations: [Other symptoms and signs involving the musculoskeletal system] 06-09-2022 Episodic Other connective tissue disease (7 sources) Thigh pain; Translations: [Pain in right thigh] 03-10-2023 Episodic Other connective tissue disease (6 sources) History of lumbar fusion; Translations: [Arthrodesis status] 03-17-2023 Episodic Other connective tissue disease (7 sources) Arthrodesis status; Translations: [Arthrodesis status] 03-17-2023 Episodic Other connective tissue disease (2 sources) Pain in thumb ; Translations: [Pain in right finger(s)] 03-20-2024 Episodic Other connective tissue disease (2 sources) Hand pain; Translations: [Pain in left hand] 07-19-2024 Episodic Other connective tissue disease (1 source) Pain in left hand; Translations: [Pain in left hand] Onset: 07-19-2024 Episodic Other connective tissue disease (1 source) Pain in right hand; Translations: [Pain in right hand] Onset: 07-19-2024 Episodic Other lower respiratory disease (9 sources) Cough; Translations: [Cough] 07-31-2019 Episodic Other lower respiratory disease (5 sources) Dyspnea on exertion; Translations: [Shortness of breath] 07-09-2022 Episodic Other nervous system disorders (7 sources) Difficulty walking; Translations: [Difficulty in walking, not elsewhere classified] 03-10-2023 Chronic Other nervous system disorders (2 sources) Neuropathy of lower limb; Translations: [Unspecified mononeuropathy of unspecified lower limb] 10-06-2023 Chronic Other nervous system disorders (2 sources) Tingling of skin; Translations: [Paresthesia of skin] 01-30-2020 Episodic Other nervous system disorders (9 sources) Burning feet; Translations: [Other disturbances of skin sensation] 01-30-2020 Episodic Other nervous system disorders (7 sources) Paresthesia of foot ; Translations: [Paresthesia of skin] 07-09-2022 Episodic Other nervous system disorders (4 sources) Acute postoperative pain; Translations: [Other acute postprocedural pain] 05-18-2023 Episodic Other non-traumatic joint disorders (7 sources) Hip pain; Translations: [Pain in left hip] 01-14-2023 Episodic Other skin disorders (9 sources) Skin lesion; Translations: [Disorder of the skin and subcutaneous tissue, unspecified] 10-25-2019 Episodic Other upper respiratory infections (2 sources) Maxillary sinusitis; Translations: [Chronic maxillary sinusitis] 11-16-2023 Chronic Other upper respiratory infections (7 sources) Acute maxillary sinusitis; Translations: [Acute maxillary sinusitis, unspecified] 01-18-2020 Episodic Otitis media and related conditions (20 sources) Otitis media; Translations: [Otitis media, unspecified, left ear] 07-31-2019 Episodic Pneumonia (except that caused by tuberculosis or sexually transmitted disease) (9 sources) Pneumonia; Translations: [Pneumonia, unspecified organism] 08-01-2019 Episodic Skin and subcutaneous tissue infections (9 sources) Cellulitis; Translations: [Cellulitis, unspecified] 09-24-2020 Episodic Spondylosis; intervertebral disc disorders; other back problems (2 sources) Spondylosis without myelopathy or radiculopathy, cervical region; Translations: [Osteoarthritis of cervical spine] 07-19-2024 Chronic Spondylosis; intervertebral disc disorders; other back problems (20 sources) Radicular syndrome of lower limbs; Translations: [Radiculopathy, site unspecified] 01-14-2023 Episodic Past or Other Problems Problem Classification Problem Date Documented Date Episodic/Chronic Cardiac dysrhythmias (3 sources) Palpitations; Translations: [Palpitations] Onset: 12-21-2023 03-16-2024 Episodic Nonspecific chest pain (4 sources) Chest pain; Translations: [Chest pain, unspecified] Onset: 12-28-2023 11-19-2023 Episodic Other connective tissue disease (1 source) Pain in right finger(s); Translations: [Pain in right finger(s)] Onset: 04-11-2024 Episodic Other non-traumatic joint disorders (1 source) Pain in left hip; Translations: [Pain in left hip] Onset: 08-04-2023 Episodic Other screening for suspected conditions (not mental disorders or infectious disease) (10 sources) Elevated C-reactive protein; Translations: [Elevated C-reactive protein (CRP)] Onset: 11-05-2023 07-09-2022 Episodic Residual codes; unclassified (7 sources) History of cardiac catheterization; Translations: [Other specified postprocedural states] Onset: 09-29-2016 07-09-2022 Episodic Comment on above: Normal Coronaries Unclassified (9 sources) BULDGING DISC LOWER LUMBAR REGION 09-25-2021 Unclassified (9 sources) CARPAL TUNNEL RIGHT HAND 09-25-2021 Unclassified (9 sources) LUMBAR L1-L2 SURGERY 09-25-2021 Unclassified (9 sources) PHOBIA WITH GROUS TO URINATE 09-25-2021 Results Test Name Value Interpretation Reference Range Facility Cerv Spine 2 or 3 Viewson Cerv Spine 2 or 3 Views [facility] Imaging Services [address] [place] [id number] Cerv Spine 2 or 3 Views MR#: [id number] Acct: [id number] Name: DONALD JONES Rep #: [id number] : 1955 M 69 From: Rafael Pepper MD PCP: MASON WillsC Status: DEP AMB Study: Cerv Spine 2 or 3 Views Date of Exam: 07/19/24 Exam# [id number] Ordering Dr: Julio César Ugalde DO EXAM: XR Cervical Spine, 2 or 3 Views CLINICAL INDICATION: ACUTE PAIN, BILATERAL ARM PAIN TECHNIQUE: Frontal and lateral views of the cervical spine. COMPARISON: No relevant prior studies available. FINDINGS: VERTEBRAE: Degenerative facet arthropathy throughout the cervical spine. Normal alignment. No acute fracture. DISC SPACES: Degenerative disc disease throughout the cervical spine. SOFT TISSUES: Unremarkable. RAD/Cerv Spine 2 or 3 Views IMPRESSION: 1. No acute fracture. 2. Degenerative changes of the cervical spine as described. Reading Location[facility] CC: SOCIAL INSURANCE SPECIALIST-C Deepthi Alex; Dr. Julio César Ugalde DO Vehicle Operator: Signed Normal [facility] Hand Min 3 Viewson 5 Hand Min 3 Views [facility] Imaging Services [address] [place], [place] [address] Hand Min 3 Views MR#: [id number] Acct: [id number] Name: DONALD JONES Rep #: [id number] : 1955 M 69 From: Rafael Pepper MD PCP: MICHAEL Wills Status: DEP AMB Study: Hand Min 3 Views Date of Exam: 07/19/24 Exam# [id number] Ordering Dr: Julio César Ugalde DO EXAM: XR Right Hand Complete, 3 or More Views CLINICAL INDICATION: ACUTE PAIN THAT GOES UP ARMS TECHNIQUE: Frontal, lateral and oblique views of the right hand. COMPARISON: No relevant prior studies available. FINDINGS: BONES/JOINTS: Mild degenerative change of the intercarpal joints. Mild degenerative change of the D IP joints. No acute fracture. No dislocation. SOFT TISSUES: Soft tissue swelling. No radiopaque foreign body. RAD/Hand Min 3 Views IMPRESSION: Degenerative changes as above. Reading Location: [facility] CC: MICHAEL Alex; Dr. Julio César Ugalde DO Vehicle Operator: Signed Normal [facility] Hand Min 3 Views [facility] Imaging Services [address] [place], [place] [id number] Hand Min 3 Views MR#: [id number] Acct: [id number] Name: DONALD JONES Rep #: [id number] : 1955 M 69 From: Rafael Pepper MD PCP: MICHAEL Wills Status: DEP AMB Study: Hand Min 3 Views Date of Exam: 07/19/24 Exam# [id number] Ordering Dr: Julio César Ugalde DO EXAM: XR Left Hand Complete, 3 or More Views CLINICAL INDICATION: ACUTE PAIN THAT GOES UP ARMS TECHNIQUE: Frontal, lateral and oblique views of the left hand. COMPARISON: No relevant prior studies available. FINDINGS: BONES/JOINTS: Moderate degenerative change of the 1st carpometacarpal joint. Mild degenerative change of the D IP joints. No acute fracture. No dislocation. SOFT TISSUES: Soft tissue swelling. No radiopaque foreign body. RAD/Hand Min 3 Views IMPRESSION: Degenerative changes as above. Reading Location: [facility] CC: MICHAEL Alex; Dr. Julio César Ugalde DO Vehicle Operator: Signed Normal [facility] Orthopedic Visit Reporton Orthopedic Visit Report [facility] [address] [place] [address] OFFICE VISIT Date of Service: 07/19/24 MR#: [id number] Acct: [id number] Name: DONALD JONES Rep #: [id number] : 1955 Provider: Dr. Julio César reina DO Age/Sex: 69/M Location: [facility].ERMELINDA Status: Signed Intake Vital Signs 03/20/24 14:20 07/19/24 08:08 Height 5 ft 11 in 5 ft 11 in Weight: 222 lb 225 lb BMI 30.9 31.4 BP 138/60 H Blood Pressure Location Rt brachial Position Sitting Respiration 18 Pulse 68 Pulse Source Doppler Temp 97.9 F Pulse Oximetry (%) 99 Oxygen Delivery Method room air Intake Visit Reasons: BL HANDS Chief Complaint: Bilateral Hands Accompanied by: Self Is patient in pain?: Yes Allergies Penicillins Allergy (Verified 07/19/24 08:08) Rash Medications ???Medication ???Instructions ???Recorded ???Confirmed ???Type ascorbic acid (vitamin C) 1,000 mg 1,000 mg PO DAILY 05/10/2307/19 History tablet,extended release (C Complex) garlic 1,000 mg capsule 1,000 mg PO DAILY 05/10/23 5 History saw palmetto 500 mg capsule 500 mg PO DAILY 05/10/23 07/19/24 History vitamin E 268 mg (400 unit) capsule 268 mg PO DAILY 05/10/23 History ibuprofen 800 mg tablet 800 mg PO Q8H PRN pain #90 tabs 07/19/24 Rx Have you fallen in the past year?: No PFSH Medical History Cough Burning sensation of feet Rash Arthritis Back pain Injury of head and neck Heartburn Non-smoker Leg cramps History of pain when walking History of stress test Cardiology follow-up encounter Mixed hyperlipidemia Elevated C-reactive protein (CRP) Weakness of lower extremity High blood cholesterol Frequency of urination Ocular migraine Leg cramps Cellulitis Hordeolum of right eye Tingling of both feet Close exposure to COVID-19 virus Skin lesion Lymphadenopathy of head and neck Fever Left otitis media Wellness examination Otitis media, left CARPAL TUNNEL RIGHT HAND Vertigo PHOBIA WITH GROUS TO URINATE BULDGING DISC LOWER LUMBAR REGION Surgical History History of left hip replacement (05/18/23) Hx of colonoscopy History of left heart catheterization (LHC) ( 10/01/16) History of back surgery Family History Uncle Heart disease Brother Myocardial infarction Social History Smoking Status: Never smoker alcohol intake: never substance use type: does not use caffeine: Yes Type: coffee Number of servings: 2 HPI BL HANDS Details: This documentation accurately reflects the service provided and the decisions made by me, Dr. Julio César Ugalde, DO 07/19/24 0736. Part of today???s visit was documented by Hilda Gunderson ATC, acting as scribe. DONALD JONES is a 69 year old M here today for bilateral thumb and index pain with radiation up the arms. Right one was worse than the left but now they are about the same . he denies numbness or tingling now. He has history of previous right carpal tunnel years ago, by another surgeon. Patient states the hands have been bothering him for a couple months and they just started bothering him randomly now all the time. He describes the pain in the thumb and it goes up into the forearm and up into the biceps. He denies neck pain. Recently he has noticed he started getting pain through the middle and ring fingers on both hands. He states after his surgery while using the walker the right hand he would notice would go numb through the middle of the palm but after he got rid of the walker the numbness subsided. He denies any previous issues with either hand. Patient is RHD. Ortho Exam General General: Yes no acute distress Neurologic: Yes alert and Yes oriented x3 Psychologic: Yes reasonable and appropriate Right Wrist/Hand Skin/Wound: Yes CDI, No Swelling, No Ecchymosis, Yes nail intact and Yes capillary refill normal Right Wrist: No Thenar Atrophy or Hypothenar Atrophy WRIST: + tenderness at CMC joint pain with CMC grind hypertrophy at MP joint intact extensor tendon intact flexor tendon full supination - atrophy 5 out of 5 abduction strength 5 out of 5 wrist flexion extension elbow flexion extension and shoulder abduction Intact sensation to light touch Left Wrist/Hand Skin/Wound: No Swelling and No Ecchymosis WRIST: + tenderness at CMC joint pain with CMC grind hypertrophy at MP joint intact extensor tendon intact flexor tendon full supination - atrophy 5 out of 5 abduction strength 5 out of 5 wrist flexion extension elbow flexion extension and shoulder abduction Intact sensation to light touch Spi (more content not included)... Normal [facility] HIP, UNI W/ Pelvis 2-3 Views on 06-19-2024 HIP, UNI W/ Pelvis 2-3 Views [facility] Imaging Services [address] [place] [address] HIP, UNI W/ Pelvis 2-3 Views MR#: [id number] Acct: [id number] Name: DONALD JONES Rep #: [id number] : 1955 M 69 From: Brittany Lyle nd, MD PCP: MICHAEL Wills Status: DEP AMB Study: HIP, UNI W/ Pelvis 2-3 Views Date of Exam: Exam# [id number] Ordering Dr: Julio César Ugalde DO PROCEDURE: HIP, UNI W/ PELVIS 2-3 VIEWS 06/19/2024 REASON FOR EXAM: S/P LEFT JOSEPH 1 YEAR FOLLOW UP TECHNIQUE: 2 views of the left hip with AP pelvis. COMPARISON: None. FINDINGS: Bones: Prior left total hip arthroplasty in anatomic alignment. No obvious hardware lucency or malpositioning. Joints: Normal alignment. Moderate degenerative changes of the right hip, bilateral SI joints and pubic symphysis. Soft tissues: Soft tissues are unremarkable. Other: Partially visualized posterior instrumentation and fixation of the lumbar spine. The visualized bowel loops are unremarkable. RAD/HIP, UNI W/ Pelvis 2-3 Views IMPRESSION: Prior left total hip arthroplasty as described. Reading Location: [id number] CC: MICHAEL Alex; Dr. Julio César Ugalde DO Vehicle Operator: Signed Normal [facility] Orthopedic Visit Reporton Orthopedic Visit Report [facility] [address] [place] [address] [address] [place] [address] OFFICE VISIT Date of Service: 06/19/24 MR#: [id number] Acct: [id number] Name: DONALD JONES Rep #: [id number] : 1955 Provider: Dr. Julio César reina DO Age/Sex: 69/M Location: [facility].ERMELINDA Status: Signed Intake Vital Signs 05/18/23 08:53 03/20/24 14:20 Height 5 ft 11 in 5 ft 11 in Intake Visit Reasons: LEFT HIP Accompanied by: Self Allergies Penicillins Allergy (Verified 06/19/24 08:51) Rash Medications ???Medication ???Instructions ???Recorded ???Confirmed ???Type ascorbic acid (vitamin C) 1,000 mg 1,000 mg PO DAILY 05/10/2306/19 History tablet,extended release (C Complex) garlic 1,000 mg capsule 1,000 mg PO DAILY 05/10/23 5 History saw palmetto 500 mg capsule 500 mg PO DAILY 05/10/23 06/19/24 History vitamin E 268 mg (400 unit) capsule 268 mg PO DAILY 05/10/23 History ibuprofen 800 mg tablet 800 mg PO Q8H PRN pain #90 tabs 06/19/24 Rx Have you fallen in the past year?: No PFSH Medical History Cough Burning sensation of feet Rash Arthritis Back pain Injury of head and neck Heartburn Non-smoker Leg cramps History of pain when walking History of stress test Cardiology follow-up encounter Mixed hyperlipidemia Elevated C-reactive protein (CRP) Weakness of lower extremity High blood cholesterol Frequency of urination Ocular migraine Leg cramps Cellulitis Hordeolum of right eye Tingling of both feet Close exposure to COVID-19 virus Skin lesion Lymphadenopathy of head and neck Fever Left otitis media Wellness examination Otitis media, left CARPAL TUNNEL RIGHT HAND Vertigo PHOBIA WITH GROUS TO URINATE BULDGING DISC LOWER LUMBAR REGION Surgical History History of left hip replacement (05/18/23) Hx of colonoscopy History of left heart catheterization (LHC) ( 10/01/16) History of back surgery Family History Uncle Heart disease Brother Myocardial infarction Social History Smoking Status: Never smoker alcohol intake: never substance use type: does not use caffeine: Yes Type: coffee Number of servings: 2 HPI LEFT HIP Details: This documentation accurately reflects the service provided and the decisions made by me, Dr. Julio César Ugalde, DO 06/19/24 0735. Part of today???s visit was documented by Estela CROWE, acting as scribe. DONALD JONES is a 69 year old M here today for 1 year post-op left JOSEPH, dos: 05/18/23. He states that the hip was doing very well up until a few months ago when he started getting lateral hip pain that radiated down to his knee. He states that it doesn't happen all the time. And it subsequently went away is not having the issue any longer he denied having any groin pain. Ortho Exam General General: Yes no acute distress and Yes well groomed Neurologic: Yes alert and Yes oriented x3 Psychologic: Yes reasonable and appropriate Right Wrist/Hand WRIST: tender over cmc and first dorsal pain with cmc grind with mild crepitation Left Wrist/Hand WRIST: cmc tenderness Left Hip Date of Surgery: 05/13/23 Skin/Wound: Yes healed, No Ecchymosis and No Erythema Hip: Absent eccymosis or erythema HIP: Incision well-healed no signs of infection or DVT is neurovascular intact left lower extremity scars over his lumbar spine from previous surgeries no signs of infection or skin concern hip range of motion is good he has no pain with hip range of motion he is not tender over trochanteric bursa or his IT band today good hip flexion knee extension strength Supplemental Info 06/19/2024 x-ray left hip: Status post total hip arthroplasty with good interfaces and position. 08/04/2023 x-ray left hip: Status post total hip arthroplasty with good interfaces and position no concern 06/28/2023 x-ray left hip: Status post total hip arthroplasty with interfaces and position 05/18/2023 CT-guided Makoplasty assisted Left total hip arthroplasty : Dr. Ugalde 03/22/2023 MRI lumbar spine: L3-L4 normal bilateral neural foramina L4-L5 narrowed bilateral neural foramina 03/10/2023 x-ray bilateral hips: Left hip severe joint space narrowing degenerative changes seen at the pubic symphysis posterior lumbar instrumentation partially viewed right hip has a very early minimal degenerative change 03/10/2023 x-ray lumbar spine: Posterior lateral pedicular screw fixation L2-L3 there is degenerative arthrosis lower lumbar facets bilaterally Coding Level of Care Code Off vis,est,level 3 Diagnoses S/P total left hip arthroplasty Z96.642 Assessment an (more content not included)... Normal [facility] KEVON Comprehensive Panelon KEVON TABLE Comment Normal . [facility] Comment on above: Result Comment: Auto antibody Disease Association Condition Frequency --------- Antinuclear Antibody, SLE, mixed connective Direct (KEVON-D) tissue diseases --------- dsDNA SLE 40 - 60% --------- Chromatin Drug induced SLE 90% SLE 48 - 97% --------- SSA (Ro) SLE 25 - 35% Sjogren's Syndrome 40 - 70% Lupus 100% --------- SSB (La) SLE 10% Sjogren's Syndrome 30% --------- Sm (anti-Lind) SLE 15 - 30% --------- DISTRICT SALES MANAGER Mixed Connective Tissue Disease 95% (U1 nRNP, SLE 30 - 50% anti-ribonucleoprotein) Polymyositis and/or Dermatomyositis 20% --------- Scl-70 (antiDNA Scleroderma (diffuse) 20 - 35% topoisomerase) Crest 13% --------- Emma-1 Polymyositis and/or Dermatomyositis 20 - 40% --------- Centromere B Scleroderma - Crest variant 80% Performed at: - [facility] [id number] Coroner Technician: Blake Cross PhD, Phone: [phone] Performed By: #### L 2846.5661, E302.1641 ####[facility] [address] [place], [address] ANTI-DNA (DS)AB 1 IU/mL Normal 0-9 [facility] Comment on above: Result Comment: Nega tive <5 Equivocal 5 - 9 Positive >9 Performed By: #### L 3100.5440, L505.7010 ####[facility] [address] [place], [place], [address] Rheumatoid Factoron 03-20-19 RHEUMATOID FAC < 10.0 Normal <15 [facility] Comment on above: Performed By: #### L 3100.5440, L505.7010 ####[facility] [address] [place], [place], [address] Cardiology Visit Reporton Cardiology Visit Report [facility] [address] [place], [place] [address] OFFICE VISIT Date of Service: 03/16/24 MR#: [id number] Acct: [id number] Name: DONALD JONES Cinthya Rep #: [id number] : 1955 Provider: MICHAEL aguillon Age/Sex: 68/M Location: [facility] Status: Signed HPI HPI History of Present Illness Details: Pleasant 68-year-old man who presents to the office today for a cardiovascular follow up visit. He has no previous cardiac history. I had initially seen him in 2017 at that time he had complained of some chest discomfort and he underwent a stress test which demonstrated no evidence of ischemia and subsequently underwent a left heart catheterization. It demonstrated normal coronary arteries he was discharged from the practice. He then saw you for follow-up 6 years later blood work was done and he was noted to have an elevated C-reactive protein of approximately 4.1. He denies chest, arm, jaw, or neck discomfort. He denies palpitations. He denies bilateral lower extremity edema. He denies claudication. He denies shortness of breath with activity, shortness of breath at rest, orthopnea, or PND. He denies chronic cough. He denies significant, sudden weight gain. He denies lightheadedness, dizziness, near-syncope, or syncope. He denies blood in urine, blood in stool, or epistaxis. He denies fever with chills. He denies myalgia. He denies fatigue. His exercise level has remained stable. Intake Vital Signs 11/19/23 08:28 03/16/24 08:35 Height 5 ft 11 in 5 ft 11 in Weight: 220 lb BMI 30.7 BP 139/62 H Blood Pressure Location Lt brachial Position Sitting Respiration 18 Pulse 69 Pulse Source NIBP Intake Visit Reasons: 4 M FU Bid Writer Required: No Is patient in pain?: No Allergies Penicillins Allergy (Verified 03/16/24 08:44) Rash Medications ???Medication ???Instructions ???Recorded ???Confirmed ???Type ascorbic acid (vitamin C) 1,000 mg 1,000 mg PO DAILY 05/10/23 03/16/24 History tablet,extended release (C Complex) garlic 1,000 mg capsule 1,000 mg PO DAILY 05/10/23 03/16/24 History saw palmetto 500 mg capsule 500 mg PO DAILY 05/10/23 03/16/24 History vitamin E 268 mg (400 unit) capsule 268 mg PO DAILY 05/10/23 03/16/24 History acetaminophen 500 mg tablet 1,000 mg (2 x 500 mg) PO Q6H PRN 05/18/23 03/16/24 Rx #100 tabs ibuprofen 800 mg tablet 800 mg PO Q8H PRN pain #90 tabs 06/10/23 03/16/24 Rx Ejection fraction %: 65 Have you fallen in the past year?: No PFSH Medical History (Updated 03/16/24 @ 09:02 by George Bishop SOCIAL INSURANCE SPECIALIST, SOCIAL INSURANCE SPECIALIST-C) Cough Burning sensation of feet Rash Arthritis Back pain Injury of head and neck Heartburn Non-smoker Leg cramps History of pain when walking History of stress test Cardiology follow-up encounter Mixed hyperlipidemia Elevated C-reactive protein (CRP) Weakness of lower extremity High blood cholesterol Frequency of urination Ocular migraine Leg cramps Cellulitis Hordeolum of right eye Tingling of both feet Close exposure to COVID-19 virus Skin lesion Lymphadenopathy of head and neck Fever Left otitis media Wellness examination Otitis media, left CARPAL TUNNEL RIGHT HAND Vertigo PHOBIA WITH GROUS TO URINATE BULDGING DISC LOWER LUMBAR REGION Surgical History History of left hip replacement (05/18/23) Hx of colonoscopy History of left heart catheterization (LHC) ( 10/01/16) History of back surgery Family History Uncle Heart disease Brother Myocardial infarction Social History (Updated 03/16/24 @ 08:48 by Sosa Tolliver) Smoking Status: Never smoker alcohol intake: never substance use type: does not use caffeine: Yes Type: coffee Number of servings: 2 ROS Const Const: Negative for fatigue or weakness Eyes Eyes: Negative for change in vision ENT ENT: Negative for dizziness or balance problems Cardio Chest Pain: No Palpitations: No Edema: None Muscle aches with walking: None Resp Respiratory: Negative for SOB with activity, SOB at rest or SOB orthopnea SOB lying down GI GI: Negative nausea or heartburn : Negative for hematuria or frequent nighttime urination/ nocturia Musc Musc: Negative for balance problems Skin Skin: Negative non-healing lesions or rash Neuro Neuro: Negative for dizziness, lightheadedness, near syncope, syncope or weakness Endo Endo: Negative for fatigue Allergy Allergy/Immunology: Negative for rash Cardiology Exam Const Appearance: cooperative, healthy appearing, comfortable and no acute distress Nutritional Appearance: well nourished and obese Orientation: alert, awake and oriented x3 Head Head: normal to inspection Ears: hearing grossly normal bilaterally (more content not included)... Normal [facility] Stress Reporton 12-01-2023 Stress Report [facility] [address] [place] [address] MR#: [id number] Acct: [id number] Name: DONALD JONES Rep #: [id number] : 1955 68 From: Wiley Arteaga MD Primary Care: MASON WillsC Status: REG CLI Referring Dr: Tere Anne NP SOCIAL INSURANCE SPECIALIST-C Sex: M C Stress Test Report Exercise myocardial perfusion stress test. 68-year-old man with a history of chest pain Stress protocol: Resting EKG demonstrates sinus bradycardia with a rate of 53 bpm resting blood pressure is 122/68 mmHg. The patient exercised according to the regular James protocol for a total duration of 8 minutes and 30 seconds attaining a maximum heart rate of 120 bpm which was 78% of maximum predicted heart rate; the maximum workload was 10.1 metabolic equivalents. At rest there were no ST or T wave changes noted to suggest ischemia and at peak exercise upsloping ST changes only were noted which did not meet the criteria for ischemia. Occasional premature ventricular complexes were noted. No clinical angina was noted the test was terminated due to the target heart rate being achieved/fatigue. The peak blood pressure was 164/60 mmHg. Rate-pressure product was 19,600. Myocardial perfusion protocol. 14.2 mCi of technetium 99m sestamibi was injected at rest. The patient exercised according to regular James protocol for total duration of 8 minutes and 30 seconds and at peak exercise 44.7 mCi of technetium 99m sestamibi was injected stress images were obtained stress and rest images were reconstructed in comparing the short axis vertical long and horizontal long axis. Gated images were also obtained. Perfusion SPECT analysis: Review of the stress images demonstrate normal uptake of tracer noted in all areas of the myocardium. The resting images similarly demonstrate normal uptake of tracer noted in all areas of the myocardium. No areas of reversibility are noted to suggest ischemia no previous infarct was noted. Gated SPECT analysis: The gated ejection fraction is 71%. Conclusion: Normal exercise myocardial perfusion stress test at a high workload Preserved ejection fraction. 12/01/231816 Date Wiley Arteaga MD CC: MICHAEL Alex; MICHAEL Anne Date Dictated: 12/01/231814 Date Transcribed: 12/01/231814 Vehicle Operator: CO Signed Normal [facility] Cardiology Visit Reporton Cardiology Visit Report [facility] [address] [place] [address] OFFICE VISIT Date of Service: 11/19/23 MR#: [id number] Acct: [id number] Name: DONALD JONES Rep #: [id number] : 1955 Provider: MICHAEL hill Age/Sex: 68/M Location: [facility] Status: Signed HPI HPI History of Present Illness Details: Pleasant 68-year-old man who presents to the office today for a cardiovascular follow up visit. He has no previous cardiac history. I had initially seen him in 2017 at that time he had complained of some chest discomfort and he underwent a stress test which demonstrated no evidence of ischemia and subsequently underwent a left heart catheterization. It demonstrated normal coronary arteries he was discharged from the practice. He then saw you for follow-up 6 years later blood work was done and he was noted to have an elevated C-reactive protein of approximately 4.1. From a cardiac standpoint, the patient is doing well. He does have palpitations daily. He describes this as a skipped beat. He does admit to occasional left sided chest pain that radiates to shoulder. He describes this as an aching sensation. This will last for a few hours. This is relieved with rest. He denies SOB, Orthopnea, and PND. He does not have bleeding issues; no blood in urine, stool or nosebleeds. He does acknowledge a decrease in energy level. He denies myalgias, or claudication. He does not have edema, or sudden weight gain. He does wear compression stockings. He denies dizziness, lightheadedness, syncopal or near syncopal episodes, and headaches. Intake Vital Signs 10/05/23 16:02 11/16/23 12:07 11/19/23 08:28 Height 5 ft 11 in 5 ft 11 in 5 ft 11 in Weight: 226 lb BMI 31.5 BP 132/81 H Blood Pressure Location Lt brachial Position Sitting Respiration 18 Pulse 57 L Pulse Source Monitor Pulse Oximetry (%) 98 Intake Visit Reasons: OVERDUE FOR OV/LAST SEEN 08/21 Bid Writer Required: No Is patient in pain?: No Allergies Penicillins Allergy (Verified 11/19/23 15:40) Rash Medications ???Medication ???Instructions ???Recorded ???Confirmed ???Type ascorbic acid (vitamin C) 1,000 mg 1,000 mg PO DAILY 05/10/23 11/19/23 History tablet,extended release (C Complex) garlic 1,000 mg capsule 1,000 mg PO DAILY 05/10/23 11/19/23 History saw palmetto 500 mg capsule 500 mg PO DAILY 05/10/23 11/19/23 History vitamin E 268 mg (400 unit) capsule 268 mg PO DAILY 05/10/23 11/19/23 History acetaminophen 500 mg tablet 1,000 mg (2 x 500 mg) PO Q6H PRN 05/18/23 11/19/23 Rx #100 tabs ibuprofen 800 mg tablet 800 mg PO Q8H PRN pain #90 tabs 06/10/23 11/19/23 Rx albuterol sulfate 90 mcg/actuation 2 puff inhalation Q6H PRN coughing 11/15/23 11/19/23 Rx aerosol inhaler #8.5 grams Have you fallen in the past year?: No PFSH Medical History Cough Burning sensation of feet Rash Arthritis Back pain Injury of head and neck Heartburn Non-smoker Leg cramps History of pain when walking History of stress test Cardiology follow-up encounter Mixed hyperlipidemia Elevated C-reactive protein (CRP) Weakness of lower extremity High blood cholesterol Frequency of urination Ocular migraine Leg cramps Cellulitis Hordeolum of right eye Tingling of both feet Close exposure to COVID-19 virus Skin lesion Lymphadenopathy of head and neck Fever Left otitis media Wellness examination Otitis media, left CARPAL TUNNEL RIGHT HAND Vertigo PHOBIA WITH GROUS TO URINATE BULDGING DISC LOWER LUMBAR REGION Surgical History (Updated 11/19/23 @ 08:49 by Tere Anne NP, SOCIAL INSURANCE SPECIALIST-C) History of left hip replacement Hx of colonoscopy History of left heart catheterization (LHC) ( 10/01/16) History of back surgery Family History Uncle Heart disease Brother Myocardial infarction Social History Smoking Status: Never smoker alcohol intake: never substance use type: does not use ROS Const Const: Positive for fatigue; Negative for weakness, fever(s), headache(s), chills, frequent falls, weight gain or weight loss Eyes Eyes: Negative for blind spots, loss of peripheral vision, transient loss of vision, blurry vision, change in vision, double vision, floaters or tunnel vision ENT ENT: Negative for headache(s), dizziness, Nosebleed/epistaxis, balance problems or neck pain Cardio Chest Pain: Yes Frequency: other Character: other (ache) Onset: at rest and exercise Location: left chest (radiate to shoulder) Relieving: rest Palpitations: Yes feels like its: skipping Edema: None Muscle aches with walking: None Resp Respiratory: Negative for SOB wit (more content not included)... Normal [facility] CBC W/Diff, Automatedon 08-0 6-2023 Absolute Lymph 2.06 X10 3/uL Normal 0.83-4.51 [facility] Comment on above: Performed By: #### L 501.9985, L500.4100, L100.0100, L501.9910, L501.6710, L500.4050 #### [facility] [address] [place], [address] Absolute Neut 3.1 X10 3/uL Normal 2.0-7.7 [facility] Comment on above: Performed By: #### L 501.9985, L500.4100, L100.0100, L501.9910, L501.6710, L500.4050 #### [facility] [address] [place], [address] Basophils/100 WBC (Bld) 0.9 % Normal 0-1 [facility] Comment on above: Performed By: #### L 501.9985, L500.4100, L100.0100, L501.9910, L501.6710, L500.4050 #### [facility] [address] [place], [address] Eosinophils/100 WBC (Bld) 2.1 % Normal 0-5 [facility] Comment on above: Performed By: #### L 501.9985, L500.4100, L100.0100, L501.9910, L501.6710, L500.4050 #### [facility] [address] [place], [address] Erythrocyte distribution width (RBC) [Ratio] 14.2 % Normal 11.6-14.6 [facility] Comment on above: Performed By: #### L 501.9985, L500.4100, L100.0100, L501.9910, L501.6710, L500.4050 #### [facility] [address] [place], [address] Hematocrit (Bld) [Volume fraction] 39.3 % Low 40-54 [facility] Comment on above: Performed By: #### L 501.9985, L500.4100, L100.0100, L501.9910, L501.6710, L500.4050 #### [facility] [address] [place], [address] Hemoglobin (Bld) [Mass/Vol] 13.1 g/dL Normal 13.0-16.5 [facility] Comment on above: Performed By: #### L 501.9985, L500.4100, L100.0100, L501.9910, L501.6710, L500.4050 #### [facility] [address] [place], [address] IG% 0.300 Normal 0.0-0.9 [facility] Comment on above: Result Comment: IG% - Immature Granulocytes (promyelocytes, myelocytes and metamyelocytes) > 1% indicates that a LEFT SHIFT is Present. Performed By: #### L 501.9985, L500.4100, L100.0100, L501.9910, L501.6710, L500.4050 #### [facility] [address] [place], [address] Lymphocytes/100 WBC (Bld) 35.5 % Normal 19-41 [facility] Comment on above: Performed By: #### L 501.9985, L500.4100, L100.0100, L501.9910, L501.6710, L500.4050 #### [facility] [address] [place], [address] MCH (RBC) [Entitic mass] 30.4 pg Normal 27.0-32.0 [facility] Comment on above: Performed By: #### L 501.9985, L500.4100, L100.0100, L501.9910, L501.6710, L500.4050 #### [facility] [address] [place], [address] MCHC (RBC) [Mass/Vol] 33.3 g/dL Normal 32-36 [facility] Comment on above: Performed By: #### L 501.9985, L500.4100, L100.0100, L501.9910, L501.6710, L500.4050 #### [facility] [address] [place], [address] MCV (RBC) [Entitic vol] 91.2 fL Normal 80-94 [facility] Comment on above: Performed By: #### L 501.9985, L500.4100, L100.0100, L501.9910, L501.6710, L500.4050 #### [facility] [address] [place], [address] Monocytes/100 WBC (Bld) 7.2 % Normal 0-10 [facility] Comment on above: Performed By: #### L 501.9985, L500.4100, L100.0100, L501.9910, L501.6710, L500.4050 #### [facility] [address] [place], [address] Neutrophils/100 WBC (Bld) 54.0 % Normal 47-70 [facility] Comment on above: Performed By: #### L 501.9985, L500.4100, L100.0100, L501.9910, L501.6710, L500.4050 #### [facility] [address] [place], [address] Nucleated RBC (Bld) [#/Vol] 0 10*3/uL Normal 0-5 [facility] Comment on above: Performed By: #### L 501.9985, L500.4100, L100.0100, L501.9910, L501.6710, L500.4050 #### [facility] [address] [place], [address] Platelet mean volume (Bld) [Entitic vol] 11.1 fL Normal 6.2-12.0 [facility] Comment on above: Performed By: #### L 501.9985, L500.4100, L100.0100, L501.9910, L501.6710, L500.4050 #### [facility] [address] [place], [address] Platelets (Bld) [#/Vol] 208 10*3/uL Normal 150-450 [facility] Comment on above: Performed By: #### L 501.9985, L500.4100, L100.0100, L501.9910, L501.6710, L500.4050 #### [facility] [address] [place], [address] RBC (Bld) [#/Vol] 4.31 10*6/uL Low 4.6-6.2 [facility] Comment on above: Performed By: #### L 501.9985, L500.4100, L100.0100, L501.9910, L501.6710, L500.4050 #### [facility] [address] [place], [address] RDW SD 47.4 fl High 35.1-43.9 [facility] Comment on above: Performed By: #### L 501.9985, L500.4100, L100.0100, L501.9910, L501.6710, L500.4050 #### [facility] [address] [place], [address] WBC (Bld) [#/Vol] 5.8 10*3/uL Normal 4.4-11.0 [facility] Comment on above: Performed By: #### L 501.9985, L500.4100, L100.0100, L501.9910, L501.6710, L500.4050 #### [facility] [address] [place], [address] CRPon 10-05-2023 C-REACTIVE PROT < 2.90 Normal 0.0-3.0 [facility] Comment on above: Result Comment: C-Re active Protein (CRP) provides useful information for the diagnosis, therapy and monitoring of inflammatory processes and associated diseases. For the evaluation of Relative Risk for Cardiovascular Disease, a High Sensitivity CRP (HSCRP) should be ordered. Performed By: #### L 501.9985, L500.4100, L100.0100, L501.9910, L501.6710, L500.4050 ####[facility] [address] [place], [address] Comprehensive Metabolic Prof ilon 10-05-2023 Albumin [Mass/Vol] 3.6 g/dL Normal 3.2-5.0 [facility] Comment on above: Performed By: #### L 501.9985, L500.4100, L100.0100, L501.9910, L501.6710, L500.4050 #### [facility] [address] [place], [address] Albumin/Globulin [Mass ratio] 1.1 {ratio} Normal 0.9-2.4 [facility] Comment on above: Performed By: #### L 501.9985, L500.4100, L100.0100, L501.9910, L501.6710, L500.4050 #### [facility] [address] [place], [address] ALK P 80 U/L Normal 45-117 [facility] Comment on above: Performed By: #### L 501.9985, L500.4100, L100.0100, L501.9910, L501.6710, L500.4050 #### [facility] [address] [place], [address] ALT [Catalytic activity/Vol] 31 U/L Normal 16-61 [facility] Comment on above: Performed By: #### L 501.9985, L500.4100, L100.0100, L501.9910, L501.6710, L500.4050 #### [facility] [address] [place], [address] AST [Catalytic activity/Vol] 26 U/L Normal 15-37 [facility] Comment on above: Performed By: #### L 501.9985, L500.4100, L100.0100, L501.9910, L501.6710, L500.4050 #### [facility] [address] [place], [address] Bilirubin [Mass/Vol] 0.60 mg/dL Normal 0.20-1.00 [facility] Comment on above: Result Comment: For patients on eltrombopag therapy, use of Dimension [place] TBIL is not recommended. Performed By: #### L 501.9985, L500.4100, L100.0100, L501.9910, L501.6710, L500.4050 #### [facility] [address] [place], [address] BUN/CRE 12.7 RATIO Normal 10-20 [facility] Comment on above: Performed By: #### L 501.9985, L500.4100, L100.0100, L501.9910, L501.6710, L500.4050 #### [facility] [address] [place], [address] CA,Total 8.5 mg/dL Normal 8.5-10.1 [facility] Comment on above: Performed By: #### L 501.9985, L500.4100, L100.0100, L501.9910, L501.6710, L500.4050 #### [facility] [address] [place], [address] Chloride [Moles/Vol] 109 mmol/L High 98-107 [facility] Comment on above: Performed By: #### L 501.9985, L500.4100, L100.0100, L501.9910, L501.6710, L500.4050 #### [facility] [address] [place], [address] CO2 [Moles/Vol] 26.0 mmol/L Normal 21.0-32.0 [facility] Comment on above: Performed By: #### L 501.9985, L500.4100, L100.0100, L501.9910, L501.6710, L500.4050 #### [facility] [address] [place], [address] Creatinine [Mass/Vol] 1.10 mg/dL Normal 0.70-1.30 [facility] Comment on above: Result Comment: The validity of the calculated GFR GFRAA in patients over 70 years has not been determined. Clinical correlation is essential. Performed By: #### L 501.9985, L500.4100, L100.0100, L501.9910, L501.6710, L500.4050 #### [facility] [address] [place], [address] EST GFR - AA 86 mL/min Normal >60 [facility] Comment on above: Result Comment: Afri can Ivorian GFR Calc Performed By: #### L 501.9985, L500.4100, L100.0100, L501.9910, L501.6710, L500.4050 #### [facility] [address] [place], [address] GAP 4 Low 5-15 [facility] Comment on above: Performed By: #### L 501.9985, L500.4100, L100.0100, L501.9910, L501.6710, L500.4050 #### [facility] [address] [place], [address] GFR/1.73 sq M.predicted among non-blacks MDRD (S/P/Bld) [Vol rate/Area] 71 mL/min/{1.73_m2} Normal >60 [facility] Comment on above: Result Comment: Non- GFR Calc Performed By: #### L 501.9985, L500.4100, L100.0100, L501.9910, L501.6710, L500.4050 #### [facility] [address] [place], [address] Globulin (S) [Mass/Vol] 3.4 g/dL Normal 2.2-4.2 [facility] Comment on above: Performed By: #### L 501.9985, L500.4100, L100.0100, L501.9910, L501.6710, L500.4050 #### [facility] [address] [place], [address] Glucose [Mass/Vol] 145 mg/dL High 74-106 [facility] Comment on above: Result Comment: Fast ing Glucose result greater than or equal to 126 mg/dL suggests DIABETES MELLITUS per A.D.A. criteria. Performed By: #### L 501.9985, L500.4100, L100.0100, L501.9910, L501.6710, L500.4050 #### [facility] [address] [place], [address] Potassium [Moles/Vol] 4.5 mmol/L Normal 3.5-5.1 [facility] Comment on above: Performed By: #### L 501.9985, L500.4100, L100.0100, L501.9910, L501.6710, L500.4050 #### [facility] [address] [place], [address] Sodium [Moles/Vol] 139 mmol/L Normal 136-145 [facility] Comment on above: Performed By: #### L 501.9985, L500.4100, L100.0100, L501.9910, L501.6710, L500.4050 #### [facility] [address] [place], [address] T PROT 7.0 g/dL Normal 6.4-8.2 [facility] Comment on above: Performed By: #### L 501.9985, L500.4100, L100.0100, L501.9910, L501.6710, L500.4050 #### [facility] [address] [place], [address] Urea nitrogen [Mass/Vol] 14 mg/dL Normal 7-18 [facility] Comment on above: Performed By: #### L 501.9985, L500.4100, L100.0100, L501.9910, L501.6710, L500.4050 #### [facility] [address] [place], [address] Hemoglobin A1con 10-05-2023 HbA1c (Bld) [Mass fraction] 5.2 % Normal 3.8-5.6 [facility] Comment on above: Result Comment: Norm al < 5.7 % Prediabetic 5.7 - 6.4 % Diabetic >or= 6.5 % Please note range changes. Performed By: #### L 501.9985, L500.4100, L100.0100, L501.9910, L501.6710, L500.4050 #### [facility] [address] [place], [address] Lipid Profileon 10-05-2023 Cholesterol [Mass/Vol] 231 mg/dL High 200 [facility] Comment on above: Result Comment: <200 mg/dL Desirable 200-240 mg/dL Borderline >240 mg/dL High Risk Performed By: #### L 501.9985, L500.4100, L100.0100, L501.9910, L501.6710, L500.4050 #### [facility] [address] [place], [address] Cholesterol in HDL [Mass/Vol] 48 mg/dL Normal [facility] Comment on above: Result Comment: The drugs N-Acetylcysteine and Metamizole may falsely depress this assay. Reference Range HDL <40 mg/dL Low HDL Cholesterol HDL >or= 60 mg/dL High HDL Cholesterol Performed By: #### L 501.9985, L500.4100, L100.0100, L501.9910, L501.6710, L500.4050 #### [facility] [address] [place], [address] Cholesterol in LDL [Mass/Vol] 151 mg/dL High 0-130 [facility] Comment on above: Performed By: #### L 501.9985, L500.4100, L100.0100, L501.9910, L501.6710, L500.4050 #### [facility] [address] [place], [address] Cholesterol in VLDL [Mass/Vol] 32 mg/dL Normal 5-40 [facility] Comment on above: Performed By: #### L 501.9985, L500.4100, L100.0100, L501.9910, L501.6710, L500.4050 #### [facility] [address] [place], [address] Triglyceride [Mass/Vol] 160 mg/dL Normal [facility] Comment on above: Result Comment: The drugs N-Acetylcysteine and Metamizole may falsely depress this assay. Serum Triglycerides Reference Interval Normal <150 mg/dL Borderline high 150 - 199 mg/dL High 200 - 499 mg/dL Very High > or = 500 mg/dL Performed By: #### L 501.9985, L500.4100, L100.0100, L501.9910, L501.6710, L500.4050 #### [facility] [address] [place], [address] PSA,Total - Annual Screenon 10-05-2023 PSA,TOT SCREEN 0.37 ng/mL Normal 0.00-4.00 [facility] Comment on above: Result Comment: This test was performed using the TPSA assay method for the [employer] chemistry system. Values obtained with different assay methods cannot be used interchangably. When changing PSA assays in the course of monitoring a patient, additional sequential testing should be carried out to confirm baseline values. Performed By: #### L 501.9985, L500.4100, L100.0100, L501.9910, L501.6710, L500.4050 ####[facility] [address], [address] HIP, UNI W/ Pelvis 2-3 Views on 08-04-2023 HIP, UNI W/ Pelvis 2-3 Views [facility] [address] [facility] [place] [address] HIP, UNI W/ Pelvis 2-3 Views MR#: [id number] Acct: [id number] Name: DONALD JONES Rep #: [id number] : 1955 M 68 From: Drake Keith MD PCP: MICHAEL Wills Status: DEP AMB Study: HIP, UNI W/ Pelvis 2-3 Views Date of Exam: 07/22 Exam# [id number] Ordering Dr: Julio César Ugalde DO [id number] EXAM: XR LEFT HIP WITH PELVIS WHEN PERFORMED, 2 OR 3 VIEWS CLINICAL INDICATION: Left hip pain TECHNIQUE: Two or three views of the left hip with pelvis when performed. COMPARISON: 06/28/2023 FINDINGS: BONES/JOINTS: There is a total left hip prosthesis in anatomic alignment. There is no loosening of the hardware. No displaced fracture. No destructive or sclerotic lesions. Note that overlapping bowel shadows may however obscure fine detail. Sacroiliac joint is unremarkable. No widening of the pubic symphysis. SOFT TISSUES: Unremarkable. No soft tissue swelling or gas. RAD/HIP, UNI W/ Pelvis 2-3 Views IMPRESSION: Left hip prosthesis in anatomic alignment. There are no acute osseous abnormalities. There has been no change from the reference exam. Electronically Signed: Drake Keith MD at 17:52 EDT , CC: MICHAEL Alex; Dr. Julio César Ugalde DO Vehicle Operator: Signed Normal [facility] Orthopedic Visit Reporton Orthopedic Visit Report [facility] [address] [place] [address] OFFICE VISIT Date of Service: 08/04/23 MR#: [id number] Acct: [id number] Name: DONALD JONES Rep #: [id number] : 1955 Provider: Dr. Julio César reina DO Age/Sex: 68/M Location: [facility] [place].ERMELINDA Status: Signed Intake Vital Signs 05/18/23 08:53 Height 5 ft 11 in Intake Visit Reasons: LEFT HIP Chief Complaint: Left hip pain Bid Writer Required: No Accompanied by: Self Is patient in pain?: Yes Pain scale (1-10): 3 Allergies Penicillins Allergy (Verified 08/04/23 09:48) Rash Medications ???Medication ???Instructions ???Recorded ???Confirmed ???Type ascorbic acid (vitamin C) 1,000 mg 1,000 mg PO DAILY 05/10/23 08/04/23 History tablet,extended release (C Complex) cinnamon bark 500 mg capsule 500 mg PO DAILY 05/10/23 08/04/23 History (Cinnamon) diclofenac sodium 1 % topical gel 2 g topical DAILY 05/10/23 08/04/23 History (Voltaren Arthritis Pain) garlic 1,000 mg capsule 1,000 mg PO DAILY 05/10/23 08/04/23 History ibuprofen 800 mg tablet 800 mg PO BID 05/10/23 08/04/23 History saw palmetto 500 mg capsule 500 mg PO DAILY 05/10/23 08/04/23 History vitamin E 268 mg (400 unit) capsule 268 mg PO DAILY 05/10/23 08/04/23 History acetaminophen 500 mg tablet 1,000 mg (2 x 500 mg) PO Q6H PRN 05/18/23 08/04/23 Rx #100 tabs ibuprofen 800 mg tablet 800 mg PO Q8H PRN pain #90 tabs 06/10/23 08/04/23 Rx cephalexin 500 mg capsule 2,000 mg (4 x 500 mg) PO ONCE #4 08/04/23 08/04/23 Rx caps PFSH Medical History Rash Arthritis Back pain Injury of head and neck Heartburn Non-smoker Leg cramps History of pain when walking History of stress test Cardiology follow-up encounter Mixed hyperlipidemia SOB (shortness of breath) on exertion Fatigue Elevated C-reactive protein (CRP) Weakness of lower extremity Bilateral acute otitis media High blood cholesterol Frequency of urination Ocular migraine Leg cramps Left facial pain Left otitis media Cellulitis Hordeolum of right eye Burning sensation of feet Tingling of both feet Close exposure to COVID-19 virus Maxillary sinusitis, acute Skin lesion Lymphadenopathy of head and neck Cough Fever Left otitis media Wellness examination Otitis media, left CARPAL TUNNEL RIGHT HAND Vertigo PHOBIA WITH GROUS TO URINATE BULDGING DISC LOWER LUMBAR REGION Surgical History Hx of colonoscopy History of left heart catheterization (LHC) ( 10/01/16) History of back surgery Family History Uncle Heart disease Brother Myocardial infarction Social History Smoking Status: Never smoker alcohol intake: never substance use type: does not use HPI LEFT HIP Details: This documentation accurately reflects the service provided and the decisions made by me, Dr. Julio César Ugalde, DO 08/04/23 0737. Part of today???s visit was documented by [ ], acting as scribe. DONALD JONES is a 68 year old M here today for left hip pain. One week ago, picked up a heavy bag at home from a low position, then stepped over to set bag on cart. Did not have immediate pain. Afterward left hip discomfort or soreness when standing. Denies pain when sitting or laying. Denies numbness or tingling. Denies radiculopathy. Denies leg weakness. Previously has been exercising at gym with exercises recommended by PT. Has not been to gym since incident. Pain has improved last couple days although still experiences some discomfort with standing. Patient states he has been going to the gym and doing exercises the physical therapist had given him. He states he was picking up a heavy bag of concrete at home and after he noticed pain. He feels pain when he stands on it and walks. Ortho Exam General General: Yes no acute distress and Yes well groomed Neurologic: Yes alert and Yes oriented x3 Psychologic: Yes reasonable and appropriate Supplemental Info 08/04/2023 x-ray left hip: Status post total hip arthroplasty with good interfaces and position no concern 06/28/2023 x-ray left hip: Status post total hip arthroplasty with interfaces and position 05/18/2023 CT-guided Makoplasty assisted Left total hip arthroplasty : Dr. Ugalde 03/22/2023 MRI lumbar spine: L3-L4 normal bilateral neural foramina L4-L5 narrowed bilateral neural foramina 03/10/2023 x-ray bilateral hips: Left hip severe joint space narrowing degenerative changes seen at the pubic symphysis posterior lumbar instrumentation partially viewed right hip has a very early minimal degenerative change 03/10/2023 x-ray lumbar spine: Posterior lateral (more content not included)... Normal [facility] Thin prep Papanicolaou smear with manual screeningOrdered By: Julio César Ugalde on 05-18-2023 Thin prep Papanicolaou smear with manual screening 89 mg/dL 74-106 [facility] Comment on above: MANAGEMENT OF PATIEN T CARE PER NURSING PROTOCOL Absolute lymphocyte countOrd ered By: Julio César Ugalde on 03-13-2024 Lymphocytes Auto (Unsp spec) [#/Vol] 2.03 10*3/uL 0.83-4.51 [facility] Activated partial thrombopla stin time (aPTT) in platelet poor plasma by coagulation aOrdered By: Julio César Ugalde on 05-12-2023 aPTT Coag (PPP) [Time] 27.6 s 24.1-36.2 [facility] Automated lymphocyte count a s percentage of total leukocytesOrdered By: Julio César Ugalde on 05-12-2023 Lymphocytes/100 WBC Auto (Unsp spec) 34.3 % 19-41 [facility] Basophil percentageOrdered B y: Julio César Ugalde on 05-12-2023 Basophils/100 WBC (Bld) 0.8 % 0-1 [facility] Chloride [Moles/Vol] 105 mmol/L 98-107 [facility] Eosinophils/100 WBC (Bld) 2.4 % 0-5 [facility] Glucose [Mass/Vol] 95 mg/dL 74-106 [facility] Hemoglobin (Bld) [Mass/Vol] 14.6 g/dL 13.0-16.5 [facility] Monocytes/100 WBC (Bld) 9.8 % 0-10 [facility] Neutrophils (Bld) [#/Vol] 3.1 10*3/uL 2.0-7.7 [facility] Neutrophils/100 WBC (Bld) 52.4 % 47-70 [facility] Potassium [Moles/Vol] 3.8 mmol/L 3.5-5.1 [facility] Sodium [Moles/Vol] 139 mmol/L 136-145 [facility] WBC (Bld) [#/Vol] 5.9 10*3/uL 4.4-11.0 [facility] Determination of erythrocyte mean corpuscular volume (MCV)Ordered By: Julio César Ugalde on 05-12-2023 MCV (RBC) [Entitic vol] 91.3 fL 80-94 [facility] Erythrocyte distribution wid th ratioOrdered By: Julio César Ugalde on 05-12-2023 Erythrocyte distribution width (RBC) [Ratio] 13.3 % 11.6-14.6 [facility] Erythrocyte distribution wid th standard deviationOrdered By: Julio César Ugalde on 05-12-2023 Erythrocyte distribution width (RBC) [Entitic vol] 44.8 fL 35.1-43.9 [facility] Hematocrit Auto (Bld) [Volum e fraction]Ordered By: Julio César Ugalde on 05-12-2023 Hematocrit (Bld) [Volume fraction] 42.9 % 40-54 [facility] Immature granulocytes/100 WB C Auto (Bld)Ordered By: Julio César Ugalde on 05-12-2023 Immature granulocytes/100 WBC (Bld) 0.300 % 0.0-0.9 [facility] Comment on above: IG% - Immature Granu locytes (promyelocytes, myelocytes and metamyelocytes) > 1% indicates that a LEFT SHIFT is Present. Laboratory - Chemistry and C hemistry - challengeOrdered By: Julio César Ugalde on 05-12-2023 CO2 [Moles/Vol] 27.0 mmol/L 21.0-32.0 [facility] Urea nitrogen/Creatinine [Mass ratio] 10.9 mg/mg 10-20 [facility] Laboratory - Chemistry and C hemistry - challengeOrdered By: Allen Hall on 05-12-2023 Magnesium [Mass/Vol] 2.5 mg/dL 1.6-2.6 [facility] Laboratory - CoagulationOrde red By: Julio César Ugalde on 05-12-2023 INR Coag (Bld) [Relative time] 1.0 {INR} [facility] PT Coag (PPP) [Time] 13.4 s 11.7-14.9 [facility] Laboratory - Hematology and Cell countsOrdered By: Julio César Ugalde on 05-12-2023 MCH (RBC) [Entitic mass] 31.1 pg 27.0-32.0 [facility] MCHC (RBC) [Mass/Vol] 34.0 g/dL 32-36 [facility] Nucleated RBC/100 WBC (Bld) [Ratio] 0 % 0-5 [facility] Platelet mean volume (Bld) [Entitic vol] 10.2 fL 6.2-12.0 [facility] Platelets (Bld) [#/Vol] 194 10*3/uL 150-450 [facility] No Panel InformationOrdered By: Julio César Ugalde on 05-12-2023 Estimated GFR (MDRD) Amer 105 mL/min >60 [facility] Comment on above: GFR Calc Estimated GFR (MDRD) Non-Af Amer 87 mL/min >60 [facility] Comment on above: Non- GFR Calc Fructosamine 234 umol/L 0-285 [facility] Comment on above: Published reference interval for apparently healthysubjects between age 20 and 60 is 205 - 285 umol/L and in apoorly controlled diabetic population is 228 - 563 umol/Lwith a mean of 396 umol/L.Performed at: [facility] [address] [id number] Director: Blake Cross PhD, Phone: [phone] Nasal Screen MRSA/MSSA [facility] RBC Auto (Bld) [#/Vol]Ordere d By: Julio César Ugalde on 05-12-2023 RBC (Bld) [#/Vol] 4.70 10*6/uL 4.6-6.2 [facility] Serum or plasma calcium alessio urement (mass/volume)Ordered By: Julio César Ugalde on 05-12-2023 Calcium [Mass/Vol] 9.0 mg/dL 8.5-10.1 [facility] Serum or plasma creatinine m easurement (mass/volume)Ordered By: Julio César Ugalde on 05-12-2023 Creatinine [Mass/Vol] 0.92 mg/dL 0.70-1.30 [facility] Comment on above: The validity of the calculated GFR & GFRAA in patients over 70 years has not been determined. Clinical correlation is essential. Serum or plasma urea nitroge n measurement (mass/volume)Ordered By: Julio César Ugalde on 05-12-2023 Urea nitrogen [Mass/Vol] 10 mg/dL 7-18 [facility] Thin prep Papanicolaou smear with manual screeningOrdered By: Julio César Ugalde on 05-12-2023 Thin prep Papanicolaou smear with manual screening 7 5-15 [facility] Whole blood hemoglobin A1c/t otal hemoglobin ratio (mass fraction)Ordered By: Julio César Ugalde on 05-12-2023 HbA1c (Bld) [Mass fraction] 5.1 % 3.8-5.6 [facility] Comment on above: Normal < 5.7 % Predi abetic 5.7 - 6.4 % Diabetic >or= 6.5 % Please note range changes. Absolute lymphocyte countOrd ered By: Deepthi Alex on 06-09-2022 Lymphocytes Auto (Unsp spec) [#/Vol] 1.99 10*3/uL 0.83-4.51 [facility] Basophil percentageOrdered B y: Deepthi Alex on 06-09-2022 Basophil percentage < 0.2 AI 0.0-0.9 [facility] Basophils/100 WBC (Bld) 0.9 % 0-1 [facility] Bilirubin [Mass/Vol] 0.50 mg/dL 0.20-1.00 [facility] Comment on above: For patients on eltr ombopag therapy, use of Dimension [place] TBIL is not recommended. Chloride [Moles/Vol] 108 mmol/L 98-107 [facility] Cholesterol [Mass/Vol] 248 mg/dL <200 [facility] Comment on above: <200 mg/dL Desirable 200-240 mg/dL Borderline >240 mg/dL High Risk Eosinophils/100 WBC (Bld) 2.3 % 0-5 [facility] Glucose [Mass/Vol] 130 mg/dL 74-106 [facility] Comment on above: Fasting Glucose resu lt greater than or equal to 126 mg/dL suggests DIABETES MELLITUS per A.D.A. criteria. Neutrophils (Bld) [#/Vol] 3.7 10*3/uL 2.0-7.7 [facility] Neutrophils/100 WBC (Bld) 57.2 % 47-70 [facility] Potassium [Moles/Vol] 4.4 mmol/L 3.5-5.1 [facility] Protein [Mass/Vol] 7.2 g/dL 6.4-8.2 [facility] Sodium [Moles/Vol] 136 mmol/L 136-145 [facility] Triglyceride [Mass/Vol] 282 mg/dL <199 [facility] Comment on above: The drugs N-Acetylcy steine and Metamizole may falsely depress this assay.Serum Triglycerides Reference Interval Normal <150 mg/dL Borderline high 150 - 199 mg/dL High 200 - 499 mg/dL Very High > or = 500 mg/dL WBC (Bld) [#/Vol] 6.5 10*3/uL 4.4-11.0 [facility] Blood erythrocytes count (nu mber/volume)Ordered By: Deepthi Alex on 06-09-2022 RBC (Bld) [#/Vol] 4.65 10*6/uL 4.6-6.2 [facility] Blood hemoglobin measurement (mass/volume)Ordered By: Deepthi Alex on 06-09-2022 Hemoglobin (Bld) [Mass/Vol] 14.4 g/dL 13.0-16.5 [facility] Blood lymphocytes/100 leukoc ytesOrdered By: Deepthi Alex on 06-09-2022 Lymphocytes/100 WBC (Bld) 30.8 % 19-41 [facility] Blood monocytes/100 leukocyt esOrdered By: Deepthi Alex on 06-09-2022 Monocytes/100 WBC (Bld) 8.5 % 0-10 [facility] Blood platelet mean volumeOr dered By: Deepthi Alex on 06-09-2022 Platelet mean volume (Bld) [Entitic vol] 11.4 fL 6.2-12.0 [facility] Determination of erythrocyte mean corpuscular volume (MCV)Ordered By: Deepthi Alex on 06-09-2022 MCV (RBC) [Entitic vol] 92.3 fL 80-94 [facility] Hematocrit Auto (Bld) [Volum e fraction]Ordered By: Deepthi Alex on 06-09-2022 Hematocrit (Bld) [Volume fraction] 42.9 % 40-54 [facility] Laboratory - Chemistry and C hemistry - challengeOrdered By: Deepthi Alex on 06-09-2022 ALP [Catalytic activity/Vol] 68 U/L 45-117 [facility] ALT [Catalytic activity/Vol] 36 U/L 16-61 [facility] CO2 [Moles/Vol] 26.0 mmol/L 21.0-32.0 [facility] Globulin (S) [Mass/Vol] 3.4 g/dL 2.2-4.2 [facility] Urea nitrogen/Creatinine [Mass ratio] 18.5 mg/mg 10-20 [facility] Laboratory - Hematology and Cell countsOrdered By: Deepthi Alex on 06-09-2022 Erythrocyte distribution width (RBC) [Entitic vol] 44.5 fL 35.1-43.9 [facility] Erythrocyte distribution width (RBC) [Ratio] 13.2 % 11.6-14.6 [facility] Immature granulocytes/100 WBC (Bld) 0.300 % 0.0-0.9 [facility] Comment on above: IG% - Immature Granu locytes (promyelocytes, myelocytes and metamyelocytes) > 1% indicates that a LEFT SHIFT is Present. MCH (RBC) [Entitic mass] 31.0 pg 27.0-32.0 [facility] Nucleated RBC/100 WBC (Bld) [Ratio] 0 % 0-5 [facility] MCHC Auto (RBC) [Mass/Vol]Or dered By: Deepthi Alex on 06-09-2022 MCHC (RBC) [Mass/Vol] 33.6 g/dL 32-36 [facility] No Panel InformationOrdered By: Deepthi Alex on 06-09-2022 Centromere B Antibody <0.2 AI 0.0-0.9 [facility] Estimated GFR (MDRD) Amer 75 mL/min >60 [facility] Comment on above: GFR Calc Estimated GFR (MDRD) Non-Af Amer 62 mL/min >60 [facility] Comment on above: Non- GFR Calc Parathyroid Hormone (Intact) 30.4 pg/mL 18.4-80.1 [facility] [employer] Antibody <0.2 AI 0.0-0.9 [facility] Thyroid Stimulating Hormone (TSH) 1.41 uIU/mL 0.358-3.74 [facility] Platelets bldOrdered By: Marshal Alex on 06-09-2022 Platelets (Bld) [#/Vol] 192 10*3/uL 150-450 [facility] Serum DNA double strand anti body assay (units/volume)Ordered By: Deepthi Alex on 06-09-2022 DNA double strand Ab Qn (S) 1 [IU]/mL 0-9 [facility] Comment on above: Negative <5 Equivoca l 5 - 9 Positive >9 Serum Emma-1 antibody assay (u nits/volume)Ordered By: Deepthi Alex on 06-09-2022 Emma-1 extractable nuclear Ab Qn (S) <0.2 AI 0.0-0.9 [facility] Serum Scl-70 extractable nuc lear antibody assay (units/volume)Ordered By: Deepthi Alex on 06-09-2022 SCL-70 extractable nuclear Ab Qn (S) <0.2 AI 0.0-0.9 [facility] Serum Lind extractable nucl ear antibody detectionOrdered By: Deepthi Alex on 06-09-2022 Lind extractable nuclear Ab Ql (S) <0.2 AI 0.0-0.9 [facility] Serum or plasma C reactive p rotein measurement (mass/volume)Ordered By: Deepthi Alex on 06-09-2022 CRP [Mass/Vol] 4.10 mg/L 0.0-3.0 [facility] Comment on above: C-Reactive Protein ( CRP) provides useful information for thediagnosis, therapy and monitoring of inflammatory processesand associated diseases. For the evaluation of Relative Riskfor Cardiovascular Disease, a High Sensitivity CRP (HSCRP)should be ordered. Serum or plasma albumin alessio urement (mass/volume)Ordered By: Deepthi Alex on 06-09-2022 Albumin [Mass/Vol] 3.8 g/dL 3.2-5.0 [facility] Serum or plasma albumin/glob ulin mass ratioOrdered By: Deepthi Alex on 06-09-2022 Albumin/Globulin [Mass ratio] 1.1 {ratio} 0.9-2.4 [facility] Serum or plasma calcium alessio urement (mass/volume)Ordered By: Deepthi Alex on 06-09-2022 Calcium [Mass/Vol] 9.1 mg/dL 8.5-10.1 [facility] Serum or plasma cholesterol in HDL measurement (mass/volume)Ordered By: Deepthi Alex on 06-09-2022 Cholesterol in HDL [Mass/Vol] 44 mg/dL >40 [facility] Comment on above: The drugs N-Acetylcy steine and Metamizole may falsely depress this assay. Reference Range HDL <40 mg/dL Low HDL Cholesterol HDL >or= 60 mg/dL High HDL Cholesterol Serum or plasma cholesterol in VLDL measurement (mass/volume)Ordered By: Deepthi Alex on 06-09-2022 Cholesterol in VLDL [Mass/Vol] 56 mg/dL 5-40 [facility] Serum or plasma creatinine m easurement (mass/volume)Ordered By: Deepthi Alex on 06-09-2022 Creatinine [Mass/Vol] 1.24 mg/dL 0.70-1.30 [facility] Comment on above: The validity of the calculated GFR & GFRAA in patients over 70 years has not been determined. Clinical correlation is essential. Serum or plasma low density lipoprotein (LDL) cholesterol measurement (mass/volume)Ordered By: Deepthi Alex on 06-09-2022 Cholesterol in LDL [Mass/Vol] 148 mg/dL 0-130 [facility] Serum or plasma urea nitroge n measurement (mass/volume)Ordered By: Deepthi Alex on 06-09-2022 Urea nitrogen [Mass/Vol] 23 mg/dL 7-18 [facility] Thin prep Papanicolaou smear with manual screeningOrdered By: Deepthi Alex on 06-09-2022 Thin prep Papanicolaou smear with manual screening 25 U/L 15-37 [facility] Thin prep Papanicolaou smear with manual screening 2 5-15 [facility] Thin prep Papanicolaou smear with manual screening Negative Negative [facility] Comment on above: Lyme antibodies not detected. Reflex testing is notindicated.No laboratory evidence of infection with B. burgdorferi(Lyme disease). Negative results may occur in patientsrecently infected (less than or equal to 14 days) with B.burgdorferi. If recent infection is suspected, repeattesting on a new sample collected in 7 to 14 days isrecommended.Performed at: [facility] [id number] Director: Blake Cross PhD, Phone: [phone] Absolute lymphocyte counton 01-09-2022 Lymphocytes Auto (Unsp spec) [#/Vol] 2.19 10*3/uL 0.83-4.51 [facility] Work Phone: Basophil percentageon 2021 Basophils/100 WBC (Bld) 0.8 % 0-1 [facility] Work Phone: Bilirubin [Mass/Vol] 0.50 mg/dL 0.20-1.00 [facility] Work Phone: Comment on above: For patients on eltr ombopag therapy, use of Dimension [place] TBIL is not recommended. Chloride [Moles/Vol] 107 mmol/L 98-107 [facility] Work Phone: Cholesterol [Mass/Vol] 237 mg/dL <200 [facility] Work Phone: Comment on above: <200 mg/dL Desirable 200-240 mg/dL Borderline >240 mg/dL High Risk Eosinophils/100 WBC (Bld) 2.3 % 0-5 [facility] Work Phone: Glucose [Mass/Vol] 147 mg/dL 74-106 [facility] Work Phone: Comment on above: Fasting Glucose resu lt greater than or equal to 126 mg/dL suggests DIABETES MELLITUS per A.D.A. criteria. Neutrophils (Bld) [#/Vol] 3.2 10*3/uL 2.0-7.7 [facility] Work Phone: Neutrophils/100 WBC (Bld) 52.2 % 47-70 [facility] Work Phone: Potassium [Moles/Vol] 4.6 mmol/L 3.5-5.1 [facility] Work Phone: Protein [Mass/Vol] 7.4 g/dL 6.4-8.2 [facility] Work Phone: Sodium [Moles/Vol] 140 mmol/L 136-145 [facility] Work Phone: Triglyceride [Mass/Vol] 264 mg/dL <199 [facility] Work Phone: Comment on above: The drugs N-Acetylcy steine and Metamizole may falsely depress this assay.Serum Triglycerides Reference Interval Normal <150 mg/dL Borderline high 150 - 199 mg/dL High 200 - 499 mg/dL Very High > or = 500 mg/dL WBC (Bld) [#/Vol] 6.1 10*3/uL 4.4-11.0 [facility] Phone: Blood erythrocytes count (nu mber/volume)on 01-09-2022 RBC (Bld) [#/Vol] 4.51 10*6/uL 4.6-6.2 [facility]: Blood hemoglobin measurement (mass/volume)on 01-09-2022 Hemoglobin (Bld) [Mass/Vol] 14.5 g/dL 13.0-16.5 [facility] Work Phone: Blood lymphocytes/100 leukoc yteson 01-09-2022 Lymphocytes/100 WBC (Bld) 36.0 % 19-41 [facility] Work Phone: Blood monocytes/100 leukocyt eson 01-09-2022 Monocytes/100 WBC (Bld) 8.4 % 0-10 [facility] Work Phone: Blood platelet mean volumeon 01-09-2022 Platelet mean volume (Bld) [Entitic vol] 10.7 fL 6.2-12.0 [facility] Work Phone: Determination of erythrocyte mean corpuscular volume (MCV)on 01-09-2022 MCV (RBC) [Entitic vol] 93.3 fL 80-94 [facility] Work Phone: Hematocrit Auto (Bld) [Volum e fraction]on 01-09-2022 Hematocrit (Bld) [Volume fraction] 42.1 % 40-54 [facility] Work Phone: Laboratory - Chemistry and C hemistry - challengeon 01-09-2022 ALP [Catalytic activity/Vol] 69 U/L 45-117 [facility] Work Phone: ALT [Catalytic activity/Vol] 34 U/L 16-61 [facility] Work Phone: CO2 [Moles/Vol] 28.0 mmol/L 21.0-32.0 [facility] Work Phone: Globulin (S) [Mass/Vol] 3.5 g/dL 2.2-4.2 [facility] Work Phone: Magnesium [Mass/Vol] 2.2 mg/dL 1.6-2.6 [facility] Work Phone: Urea nitrogen/Creatinine [Mass ratio] 13.3 mg/mg 10-20 [facility] Work Phone: Laboratory - Hematology and Cell countson 01-09-2022 Erythrocyte distribution width (RBC) [Entitic vol] 45.5 fL 35.1-43.9 [facility] Work Phone: Erythrocyte distribution width (RBC) [Ratio] 13.4 % 11.6-14.6 [facility] Work Phone: Immature granulocytes/100 WBC (Bld) 0.300 % 0.0-0.9 [facility] Work Phone: Comment on above: IG% - Immature Granu locytes (promyelocytes, myelocytes and metamyelocytes) > 1% indicates that a LEFT SHIFT is Present. MCH (RBC) [Entitic mass] 32.2 pg 27.0-32.0 [facility] Work Phone: Nucleated RBC/100 WBC (Bld) [Ratio] 0 % 0-5 [facility] Work Phone: MCHC Auto (RBC) [Mass/Vol]on 01-09-2022 MCHC (RBC) [Mass/Vol] 34.4 g/dL 32-36 [facility] Work Phone: No Panel Informationon 01-09 Estimated GFR (MDRD) Amer 91 mL/min >60 [facility] Work Phone: Comment on above: GFR Calc Estimated GFR (MDRD) Non-Af Amer 75 mL/min >60 [facility] Work Phone: Comment on above: Non- GFR Calc Prostate Specific Antigen Screen 0.40 ng/mL 0.00-4.00 [facility] Work Phone: Comment on above: This test was perfor med using the TPSA assay method for [employer] chemistry system. Values obtained with differentassay methods cannot be used interchangably.When changing PSA assays in the course of monitoring apatient, additional sequential testing should be carriedout to confirm baseline values. Platelets bldon 01-09-2022 Platelets (Bld) [#/Vol] 214 10*3/uL 150-450 [facility] Work Phone: Serum or plasma albumin alessio urement (mass/volume)on 01-09-2022 Albumin [Mass/Vol] 3.9 g/dL 3.2-5.0 [facility] Work Phone: Serum or plasma albumin/glob ulin mass ratioon 01-09-2022 Albumin/Globulin [Mass ratio] 1.1 {ratio} 0.9-2.4 [facility] Work Phone: Serum or plasma calcium alessio urement (mass/volume)on 01-09-2022 Calcium [Mass/Vol] 9.1 mg/dL 8.5-10.1 [facility] Work Phone: Serum or plasma cholesterol in HDL measurement (mass/volume)on 01-09-2022 Cholesterol in HDL [Mass/Vol] 50 mg/dL >40 [facility] Work Phone: Comment on above: The drugs N-Acetylcy steine and Metamizole may falsely depress this assay. Reference Range HDL <40 mg/dL Low HDL Cholesterol HDL >or= 60 mg/dL High HDL Cholesterol Serum or plasma cholesterol in VLDL measurement (mass/volume)on 01-09-2022 Cholesterol in VLDL [Mass/Vol] 53 mg/dL 5-40 [facility] Work Phone: Serum or plasma creatinine m easurement (mass/volume)on 01-09-2022 Creatinine [Mass/Vol] 1.05 mg/dL 0.70-1.30 [facility] Work Phone: Comment on above: The validity of the calculated GFR & GFRAA in patients over 70 years has not been determined. Clinical correlation is essential. Serum or plasma low density lipoprotein (LDL) cholesterol measurement (mass/volume)on 01-09-2022 Cholesterol in LDL [Mass/Vol] 134 mg/dL 0-130 [facility] Work Phone: Serum or plasma urea nitroge n measurement (mass/volume)on 01-09-2022 Urea nitrogen [Mass/Vol] 14 mg/dL 7-18 [facility] Work Phone: Thin prep Papanicolaou smear with manual screeningon 01-09-2022 Thin prep Papanicolaou smear with manual screening 24 U/L 15-37 [facility] Work Phone: Thin prep Papanicolaou smear with manual screening 5 5-15 [facility] Work Phone: Vital Signs Date Time Vital Sign Value Performing Clinician Faci lity 07-19-2024 08:08-0400 Body height 180.34 cm Deepthi Alex SOCIAL INSURANCE SPECIALIST-C Work Phone: [facility] 07-19-2024 08:08-0400 Body mass index (BMI) [Ratio] 31.4 kg/m2 Deepthi Alex SOCIAL INSURANCE SPECIALIST-C Work Phone: [facility] 07-19-2024 08:08-0400 Body weight 102.05 kg Deepthi Alex SOCIAL INSURANCE SPECIALIST-C Work Phone: [facility] 05-18-2023 18:10-0400 Body temperature 97.2 [degF] SOCIAL INSURANCE SPECIALIST-C Deepthi Alex SOCIAL INSURANCE SPECIALIST Work Phone: [facility] 05-18-2023 18:10-0400 Diastolic blood pressure 65 mm[Hg] SOCIAL INSURANCE SPECIALIST-C Deepthi Alex SOCIAL INSURANCE SPECIALIST Work Phone: [facility] 05-18-2023 18:10-0400 Heart rate 88 /min SOCIAL INSURANCE SPECIALIST-C Deepthi Alex SOCIAL INSURANCE SPECIALIST Work Phone: [facility] 05-18-2023 18:10-0400 Respiratory rate 16 /min SOCIAL INSURANCE SPECIALIST-C Deepthi Alex SOCIAL INSURANCE SPECIALIST Work Phone: [facility] 05-18-2023 18:10-0400 SaO2% (BldA) [Mass fraction] 99 % SOCIAL INSURANCE SPECIALIST-Woody Alex SOCIAL INSURANCE SPECIALIST Work Phone: [facility] 05-18-2023 18:10-0400 Systolic blood pressure 110 mm[Hg] SOCIAL INSURANCE SPECIALIST-Woody Alex SOCIAL INSURANCE SPECIALIST Work Phone: [facility] 05-18-2023 15:00-0400 Inhaled oxygen flow rate 4 L/min SOCIAL INSURANCE SPECIALIST-C Deepthi Alex SOCIAL INSURANCE SPECIALIST Work Phone: [facility] 05-18-2023 08:53-0400 Body height 180.34 cm SOCIAL INSURANCE SPECIALIST-C Deepthi Alex SOCIAL INSURANCE SPECIALIST Work Phone: [facility] 05-18-2023 08:53-0400 Body mass index (BMI) [Ratio] 31.4 kg/m2 SOCIAL INSURANCE SPECIALIST-C Deepthi Alex SOCIAL INSURANCE SPECIALIST Work Phone: [facility] 05-18-2023 08:53-0400 Body weight 102 kg SOCIAL INSURANCE SPECIALIST-C Deepthi Alex SOCIAL INSURANCE SPECIALIST Work Phone: [facility] 03-29-2023 08:08-0500 Body height 177.8 cm SOCIAL INSURANCE SPECIALIST-Woody Alex SOCIAL INSURANCE SPECIALIST Work Phone: [facility] 03-17-2023 08:05-0500 Body mass index (BMI) [Ratio] 33.2 kg/m2 SOCIAL INSURANCE SPECIALIST-C Deepthi Alex SOCIAL INSURANCE SPECIALIST Work Phone: [facility] 03-17-2023 08:05-0500 Body weight 104.94 kg SOCIAL INSURANCE SPECIALIST-Woody Alex SOCIAL INSURANCE SPECIALIST Work Phone: [facility] 03-09-2023 15:18-0500 Body height 177.8 cm [facility] 03-09-2023 15:18-0500 Body mass index (BMI) [Ratio] 33.7 kg/m2 [facility] 03-09-2023 15:18-0500 Body temperature 97.9 [degF] [facility] 03-09-2023 15:18-0500 Body weight 106.59 kg [facility] 03-09-2023 15:18-0500 Diastolic blood pressure 70 mm[Hg] [facility] 03-09-2023 15:18-0500 Heart rate 72 /min [facility] 03-09-2023 15:18-0500 Respiratory rate 18 /min [facility] 03-09-2023 15:18-0500 SaO2% (BldA) [Mass fraction] 99 % [facility] 03-09-2023 15:18-0500 Systolic blood pressure 142 mm[Hg] [facility] 01-14-2023 15:20-0500 Body mass index (BMI) [Ratio] 33.8 kg/m2 [facility] 01-14-2023 15:20-0500 Body temperature 97.9 [degF] [facility] 01-14-2023 15:20-0500 Body weight 107.04 kg [facility] 01-14-2023 15:20-0500 Diastolic blood pressure 70 mm[Hg] [facility] 01-14-2023 15:20-0500 Heart rate 69 /min [facility] 01-14-2023 15:20-0500 Respiratory rate 18 /min [facility] 01-14-2023 15:20-0500 SaO2% (BldA) [Mass fraction] 98 % [facility] 01-14-2023 15:20-0500 Systolic blood pressure 122 mm[Hg] [facility] 06-09-2022 18:44-0400 Body height 177.8 cm [facility] 06-09-2022 18:44-0400 Body mass index (BMI) [Ratio] 35.4 kg/m2 [facility] 06-09-2022 18:44-0400 Body temperature 97.7 [degF] [facility] 06-09-2022 18:44-0400 Body weight 112.03 kg [facility] 06-09-2022 18:44-0400 Diastolic blood pressure 80 mm[Hg] [facility] 06-09-2022 18:44-0400 Heart rate 89 /min [facility] 06-09-2022 18:44-0400 Respiratory rate 18 /min [facility] 06-09-2022 18:44-0400 SaO2% (BldA) [Mass fraction] 97 % [facility] 06-09-2022 18:44-0400 Systolic blood pressure 140 mm[Hg] [facility] 04-13-2022 16:38-0500 Body mass index (BMI) [Ratio] 36 kg/m2 [facility] 04-13-2022 16:38-0500 Body temperature 98.1 [degF] [facility] 04-13-2022 16:38-0500 Body weight 113.85 kg [facility] 04-13-2022 16:38-0500 Diastolic blood pressure 80 mm[Hg] [facility] 04-13-2022 16:38-0500 Heart rate 77 /min [facility] 04-13-2022 16:38-0500 Respiratory rate 18 /min [facility] 04-13-2022 16:38-0500 SaO2% (BldA) [Mass fraction] 97 % [facility] 04-13-2022 16:38-0500 Systolic blood pressure 118 mm[Hg] [facility] 01-09-2022 16:22-0500 Body height 177.8 cm [facility] Work Phone: Encounters Encounter Date Encounter Type Care Provider Facility Start: 07-19-2024 End: 07-19-[address] Wiley Arteaga MD -[facility] Start: 07-19-2024 End: 07-19-2024 ambulatory Deepthi Alex SOCIAL INSURANCE SPECIALIST-C Work Phone: [facility] Work Phone: Start: 06-19-2024 End: 06-19-[address] Julio César Ugalde DO -[facility] Work Phone: Start: 06-19-2024 End: 06-19-2024 ambulatory Deepthi Alex SOCIAL INSURANCE SPECIALIST Facility:[facility] Start: 03-20-2024 End: 03-20-2024 ambulatory Deepthi Alex SOCIAL INSURANCE SPECIALIST Facility:[facility] Start: 03-16-2024 End: 03-16-2024 ambulatory Deepthi Alex SOCIAL INSURANCE SPECIALIST Facility:[facility] Start: 12-02-2023 ambulatory Deepthi Alex SOCIAL INSURANCE SPECIALIST Faci lity:[facility] Start: 12-01-2023 ambulatory Deepthi Alex SOCIAL INSURANCE SPECIALIST Faci lity:[facility] Start: 12-01-2023 End: 12-01-2023 ambulatory Deepthi Alex SOCIAL INSURANCE SPECIALIST Facility:[facility] Start: 11-23-2023 ambulatory Deepthi Alex SOCIAL INSURANCE SPECIALIST Faci lity:[facility] Start: 11-23-2023 End: 11-23-2023 ambulatory Deepthi Alex SOCIAL INSURANCE SPECIALIST Facility:[facility] Start: 11-19-2023 End: 11-19-2023 ambulatory Deepthi Alex SOCIAL INSURANCE SPECIALIST Facility:[facility] Start: 10-05-2023 End: 10-05-2023 ambulatory Deepthi Alex SOCIAL INSURANCE SPECIALIST Facility:[facility] Start: 08-05-2023 ambulatory Deepthi Alex SOCIAL INSURANCE SPECIALIST Faci lity:[facility] Start: 08-04-2023 End: 08-04-2023 ambulatory Deepthi Alex SOCIAL INSURANCE SPECIALIST Facility:[facility] Start: 06-07-2023 Registered Recurring SOCIAL INSURANCE SPECIALIST-C Deepthi Alex SOCIAL INSURANCE SPECIALIST Work Phone: [facility]-Physical Therapy Work Phone: Start: 05-31-2023 End: 05-31-2023 Patient encounter procedure SOCIAL INSURANCE SPECIALIST-C Deepthi Alex SOCIAL INSURANCE SPECIALIST Work Phone: [facility] Work Phone: Start: 05-21-2023 Non-patient / Non-visit SOCIAL INSURANCE SPECIALIST-C Deepthi Alex SOCIAL INSURANCE SPECIALIST Work Phone: [facility] Start: 05-18-2023 Non-patient / Non-visit SOCIAL INSURANCE SPECIALIST-C Deepthi Alex SOCIAL INSURANCE SPECIALIST Work Phone: [facility] Start: 05-18-2023 End: 05-18-2023 Admission to same day surgery center SOCIAL INSURANCE SPECIALIST-C Deepthi Alex SOCIAL INSURANCE SPECIALIST Work Phone: [facility] Start: 05-18-2023 End: 05-18-2023 ambulatory SOCIAL INSURANCE SPECIALIST-C Deepthi Alex SOCIAL INSURANCE SPECIALIST Work Phone: [facility] Work Phone: Start: 05-12-2023 End: 05-12-2023 Non-patient / Non-visit SOCIAL INSURANCE SPECIALIST-C Deepthi Alex SOCIAL INSURANCE SPECIALIST Work Phone: [facility] Work Phone: Start: 04-14-2023 End: 04-14-2023 ambulatory SOCIAL INSURANCE SPECIALIST-C Deepthi Alex SOCIAL INSURANCE SPECIALIST Work Phone: [facility] Work Phone: Start: 04-14-2023 End: 04-14-2023 Patient encounter procedure SOCIAL INSURANCE SPECIALIST-C Deepthi Alex SOCIAL INSURANCE SPECIALIST Work Phone: [facility]-Cat Scan, [facility] Work Phone: Start: 03-29-2023 End: 03-29-2023 Patient encounter procedure SOCIAL INSURANCE SPECIALIST-C Deepthi Alex SOCIAL INSURANCE SPECIALIST Work Phone: [facility] Work Phone: Start: 03-22-2023 End: 03-22-2023 ambulatory SOCIAL INSURANCE SPECIALIST-C Deepthi Alex SOCIAL INSURANCE SPECIALIST Work Phone: [facility] Work Phone: Start: 03-22-2023 End: 03-22-2023 Patient encounter procedure SOCIAL INSURANCE SPECIALIST-C Deepthi Alex SOCIAL INSURANCE SPECIALIST Work Phone: [facility] Work Phone: Start: 03-22-2023 End: 03-22-2023 ambulatory SOCIAL INSURANCE SPECIALIST-C Deepthi Alex SOCIAL INSURANCE SPECIALIST Work Phone: [facility] Work Phone: Start: 03-22-2023 End: 03-22-2023 Discharged Recurring SOCIAL INSURANCE SPECIALIST-C Deepthi Alex SOCIAL INSURANCE SPECIALIST Work Phone: [facility]-Physical Therapy Work Phone: Start: 03-22-2023 Registered Recurring SOCIAL INSURANCE SPECIALIST-C Deepthi Alex SOCIAL INSURANCE SPECIALIST Work Phone: [facility]-Physical Therapy Work Phone: Start: 03-17-2023 End: 03-17-2023 Patient encounter procedure SOCIAL INSURANCE SPECIALIST-C Deepthi Alex SOCIAL INSURANCE SPECIALIST Work Phone: [facility] Work Phone: Start: 03-10-2023 End: 03-10-2023 ambulatory [facility] Work Phone: Start: 03-10-2023 End: 03-10-2023 Patient encounter procedure [facility]-Radiology, [facility] Work Phone: Start: 06-09-2022 End: 06-09-2022 ambulatory [facility] Work Phone: Start: 06-09-2022 End: 06-09-2022 Patient encounter procedure [facility]-Laboratory, Specimen Start: 01-09-2022 End: 01-09-2022 ambulatory [facility] Work Phone: Start: 01-09-2022 End: 01-09-2022 Patient encounter procedure [facility]-Laboratory, Specimen Start: 12-08-2018 Patient encounter status [facility] Procedures Date Procedure Procedure Detail Performing Clinician Start: 06-19-2024 Plain x-ray of pelvi s and lower extremity Deepthi Alex SOCIAL INSURANCE SPECIALIST-C Work Phone: Start: 05-18-2023 Plain X-ray of hip SOCIAL INSURANCE SPECIALIST-C Deepthi Alex SOCIAL INSURANCE SPECIALIST Work Phone: Start: 05-18-2023 Total Hip Replacemen t Robotic Arm Assist (Left) SOCIAL INSURANCE SPECIALIST-C Deepthi Alex SOCIAL INSURANCE SPECIALIST Work Phone: Start: 05-12-2023 Nasal Screen MRSA/MSSA SOCIAL INSURANCE SPECIALIST-C Deepthi Alex SOCIAL INSURANCE SPECIALIST Work Phone: Start: 04-14-2023 MRI of lower extremity SOCIAL INSURANCE SPECIALIST-C Deepthi Alex SOCIAL INSURANCE SPECIALIST Work Phone: Start: 03-22-2023 MRI of lumbar spine MASON Alex NP Work Phone: Start: 03-10-2023 Plain x-ray of pelvi s and lower extremity Start: 03-10-2023 X-ray of lumbosacral spine Plan of Treatment Date Care Activity Detail Author Start: 07-19-2024 Plain x-ray of hand Hand Min 3 Views [facility] Start: 07-19-2024 X-ray of cervical spine Cerv Spine 2 or 3 Views [facility] Start: 07-19-2024 XR Cervical spine 2 or 3 Views [facility] Start: 07-19-2024 XR Hand GE 3 Views [facility] Start: 05-18-2023 Anesthesia open total hip arthroplasty ANESTH HIP ARTHROPLASTY [facility] Start: 05-18-2023 Arthrp acetblr/prox fem prostc agrft/algrft TOTAL HIP ARTHROPLASTY [facility] Start: 05-18-2023 Plain X-ray of hip Hip Min 2 Views (Portable) [facility] Start: 05-18-2023 XR Hip GE 2 Views [facility] Start: 05-18-2023 Application of ice collar, cap or bag [facility] Start: 05-18-2023 Exercises [facility] Start: 05-18-2023 Incentive spirometry [facility] Start: 05-18-2023 Neurovascular assessment [facility] Start: 05-18-2023 Patient discharge [facility] Start: 05-18-2023 Patient education [facility] Start: 05-18-2023 Provision of activity privileges [facility] Start: 05-18-2023 Recommendation to continue with treatment [facility] Start: 05-18-2023 Referral to service [facility] Start: 05-18-2023 Vital signs measurements [facility] Start: 05-18-2023 Wound care [facility] Start: 05-18-2023 [facility] Start: 03-17-2023 Patient referral [facility] Work Phone: Patient referral [facility] Work Phone: Payers Date Payer Category Payer Unknown [id number] [id number] Unknown [id number] 2022 Private Health Insurance [id number] 2022 Self-pay [id number] 2016 Unknown [facility] [id number] Medicare MEDICARE PART A B [id number] Unknown [id number] Unknown [id number] Unknown [id number] [id number] Unknown [id number] [id number] Unknown [id number] [id number] Unknown [id number] [id number] Unknown [id number] [id number] Unknown [id number] [id number] Unknown [id number] [id number] Unknown [id number] [id number] Unknown [id number] [id number] Unknown [id number] [id number] Unknown [id number] [id number] Unknown [id number] [id number] Unknown [id number] [id number] Unknown [id number] [id number] Social History Date Type Detail Facility Start: 01-09-2022 End: 05-31-2023 Tobacco smoking status NHIS Unknown if ever smoked [facility] Start: 09-30-2016 None [facility] Start: 09-30-2016 With Family [facility] Start: 1955 Sex Assigned At Male [facility] Start: 03-20-2024 Tobacco smoking stat us ARIS Never smoked tobacco (finding) [facility] Medical Equipment Procedure Code Equipment Code Equipment Origin al Text Equipment Identifier Dates ([id number]) Ceramic femoral head prosthesis ()[id number] FDA Start: 05-18-2023 ([id number]) Coated hip femur prosthesis, modular ()[id number]( [id number] FDA Start: 05-18-2023 ([id number]) Non-constrained polyethylene acetabular liner ()[id number]( [id number] FDA Start: 05-18-2023 ([id number]) Acetabular shell ()[id number] FDA Start: 05-18-2023 ([id number]) Orthopaedic bone screw, non-bioabsorbable, sterile ()[id number]( [id number] FDA Start: 05-18-2023 Goals Date Patient Goal Desired Activity /State Mental Status Date Assessment Result Facility 05-18-2023 Cognitive function Voice/Name [facility] Work Phone: 05-18-2023 Cognitive function Patient Beth miles Person;Place;Time [facility] Work Phone: Clinical Notes 05-18-2023 to 06-19-2024 Note Date & Type Note Facility 06-19-2024 Evaluation note Diagnosis Onset Date Resolution S/P total left hip arthroplasty acute June 19, 2024 8:35am Left hand pain noneactive July 19, 2024 7:34am [facility] [facility] Work Phone: 1(362) 234-282804-21-2025 Evaluation note* Diagnosis Onset Date Resolution Status Admit Date S/P total left hip arthroplasty acut e June 19, 2024 8:35am Arthritis of carpometacarpal (CMC) joint of both thumbs acute June 302024 7:34am 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 Collin Ventura MD Status: REG R Insurance: [facility] [id number] SELF PAY INSURANCE Patient Information Patient Information: DONALD JONES was seen in my office for initial evaluation on 03/22/23. The following Plan of Care was established for this patient: Last Seen Last Seen: This patient was last seen in our office . Pertinent comments regarding their Physical therapy will appear below: Patient to have surgery- d/c At this point I will be discontinuing this patient from physical therapy. I would be happy to see this patient again in the future if found appropriate by the physician. Thank you! Kaitlyn L Rockwall, DPT <Electronically signed by Kaitlyn Burt DPT> 06/07/23 1107 CC: MICHAEL Alex; Dr. Collin Ventura MD ~ ELR Signed [facility] Work Phone: 1(278) 483-245003-19-2024 Discharge summary Author Julio César Ugalde [facility] May 18, 2023 1:20pm Note Date/Time May 18, 2023 1:1 4pm [facility] Medical Records Department [address] [place] [address] Instructions for Home/Discharge Instructions 05/18/23 1313 MR#: [id number] Acct: [id number] Name: DONALD JONES Rep #:[id number] : 1955 68 From: Julio César Ugalde DO PCP: MICHAEL Wills Status:REG SDC Discharge Instructions Diet Discharge Diet: No restrictions Activity Weight Bearing Status: Full weight bearing Dressing / Incision Call your doctor if you observe: Shortness of breath and Chest pain Additional Dressing/Incision Instructions:: Do not shower 72hrs. Begin daily showering warm water antibacterial soap postop day #3( 72hrs Post-operatively) and then daily. Leave the dressing on for 72 hours postoperatively then may remove prior to first shower and change dressing daily after this until no drainage for 2 consecutive days then may leave open to air. Follow hip precautions that were reviewed in hospital. Wear compression stockings, may remove at night. Start physical therapy as directed in hospital. Follow prescriptions instructions do not take any other pain medication or differ dosing without consulting your physician. Do not take oral NSAIDs until blood thinner has been completed , then may begin the day after completion if needed .Call Dr. Ugalde's office with any concerns. Follow Up Care Please Follow Up With: Julio César Ugalde DO When: 2 weeks Test Results: Test results from this visit will be discussed in further detail at your follow- up appointment, if applicable. Discharge Plan Admission Primary Reason for Your Visit: Left total hip arthroplasty Attending Provider: Julio César Ugalde Primary Care Provider: Deepthi Alex NP Discharge Orders/Prescriptions Prescriptions: New acetaminophen [acetaminophen] 500 mg tablet 1,000 mg PO Q6H PRN Qty: 100 0RF Eliquis 2.5 mg tablet 2.5 mg PO BID Qty: 42 0RF Rx Instructions: Begin morning after surgery cephalexin [cephalexin] 500 mg capsule 1,000 mg PO Q8 Qty: 4 0RF Rx Instructions: take 2 tabs at 9:00 pm and 2 tabs after 5 am when you wake up oxycodone 5 mg tablet 5 - 10 mg PO Q4H PRN (Reason: pain) 7 Days Qty: 60 0RF Continued C Complex 1,000 mg tablet extended release 1,000 mg PO DAILY vitamin E 268 mg (400 unit) capsule 268 mg PO DAILY garlic 1,000 mg capsule 1,000 mg PO DAILY cinnamon bark [Cinnamon] 500 mg capsule 500 mg PO DAILY diclofenac sodium [Voltaren Arthritis Pain] 1 % gel 2 g topical DAILY Held ibuprofen 800 mg tablet 800 mg PO BID Hold Instructions: Resume on 06/10/23. May resume after completion of blood thinner Patient Comments: TAKE 1 TABLET BY MOUTH THREE TIMES DAILY NEEDED FOR PAIN No Action saw palmetto 500 mg capsule 500 mg PO DAILY Rx Instructions: give with food (meal/snack) Referrals / Follow Up: Deepthi Alex NP, SOCIAL INSURANCE SPECIALIST-C [Primary Care Provider] - Disposition Disposition (needs filled in before D/C Order can be placed): Home, Self Care 05/18/23 1320<Electronically signed by Julio César Ugalde DO>[facility] CC: SOCIAL INSURANCE SPECIALIST-C Deepthi Alex ~ Signed [facility] Work Phone: 1(106) 844-327003-19-2024 Procedure [facility] 05-18-2023 History and physical note Author Julio César [facility] May 18, 2023 9:58am Note Date/Time May 18, 2023 9:5 8am [facility] Medical Records Department [address] [place] [address] History & Physical Exam 05/18/23 0956 MR#: [id number] Acct: [id number] Name: DONALD JONES Rep #:[id number] : 1955 68 From: Julio César Ugalde DO PCP: MICHAEL Wills Status:[facility] Location: [place] [address] History and Physical Date of Admission: 05/18/23 [facility] [address] [place] [address] OFFICE VISIT Date of Service: 03/29/23 MR#: [id number] Acct: [id number] Name: DONALD JONES Rep #: [id number] : 1955 Provider: Dr. Julio César Ugalde DO Age/Sex: 67/M Location: [facility].ERMELINDA Status: Signed Intake Vital Signs 03/17/2407:05 03/17/2407:52 03/29/2407:08 Height 5 ft 10 in 5 ft 10 in 5 ft 10 in Weight: 231 lb 6 oz BMI 33.2 Intake Visit Reasons: BI LAT HIPS Is patient in pain?: Yes (Bilateral hips) Pain scale (1-10): 4 Allergies Penicillins Allergy (Verified 03/29/23 07:59) Rash Medications NK 03/17/23 [History Confirmed 03/29/23] PFSH Medical History Bilateral acute otitis media BULDGING DISC LOWER LUMBAR REGION Burning sensation of feet CARPAL TUNNEL RIGHT HAND Cellulitis Close exposure to COVID-19 virus Cough Elevated C-reactive protein (CRP) Fatigue Fever Frequency of urination High blood cholesterol Hordeolum of right eye Hx of migraines Left facial pain Left otitis media Left otitis media Leg cramps Lymphadenopathy of head and neck Maxillary sinusitis, acute Mixed hyperlipidemia Ocular migraine Otitis media, left PHOBIA WITH GROUS TO URINATE Skin lesion SOB (shortness of breath) on exertion Tingling of both feet Vertigo Weakness of lower extremity Wellness examination Surgical History History of back surgery History of left heart catheterization (LHC) (~10/01/16) Family History Uncle Heart diseaseBrother Myocardial infarction Social History Smoking Status: Never smoker alcohol intake: never substance use type: does not use HPI BI LAT HIPS Details: This documentation accurately reflects the service provided and the decisions made by me, Dr. Julio César Ugalde DO 03/29/23 0753. Part of today?s visit was documented by Estela CROWE, acting as scribe. DONALD JONES is a 67 year old M here today for bilateral hip pain. He states the left hip is worse than the right. His right is very minimal. He states thepain gets worse as the day goes on. He states at times his hips feels like they are going to give out on him. By the end of the day he is barely able to walk. He does have numbness and tingling as well down the anterior thigh and some paindown past the knee for which he is seeing Dr. Cleveland for. He denies previous surgery or injury to the hips. Left hip pain has been present for 2 years and getting worse over the past year. He did have to retire due to his hip pain not able to stand. Pain is mostly in the groin radiates to the glute and over medialand anterior thigh. He has not done any physical therapy or NSAIDs. Of note hedid have lumbar surgery 2016 Ortho Exam General General: Yes no acute distress Neurologic: Yes alert and Yes oriented x3 Psychologic: Yes reasonable and appropriate Left Hip Skin/Wound: No Ecchymosis, No soft tissue swelling and No Erythema Hip: Absent eccymosis, soft tissue swelling, erythema or tender to palpate - internal rotation @90 degree flexion: 0 degrees external rotation @90 degree extension: 20 degrees Special Tests: Yes RROM flexion pain; No TTP Greater Troch HIP: internal and external rotation with reproduction of groin pain is significant No masses around the hip or skin concern no significant edema palpable pedal pulse Scaly low-intensity erythematous small rash on BL ankles, states he gets every year then goes away. Head: Normocephalic Atraumatic Chest: symmetrical rise, non-labored breathing, no audible wheeze Abdomen: no guarding, non-rigid Supplemental Info 03/22/2023 MRI lumbar spine: L3-L4 normal bilateral neural foramina L4-L5 narrowed bilateral neural foramina 03/10/2023 x-ray bilateral hips: Left hip severe joint space narrowing degenerative changes seen at the pubic symphysis posterior lumbar instrumentation partially viewed right hip has a very early minimal degenerativechange 03/10/2023 x-ray lumbar spine: Posterior lateral pedicular screw fixation L2-L3 there is degenerative arthrosis lower lumbar facets bilaterally Coding Level of Care Code Off vis,est,level 4 Diagnoses Status post lumbar spinal fusion Z98.1 Lumbar radiculopathy M54.16 Unilateral primary osteoarthritis, left hip M16.12 Assessment and Plan Assessment and Plan (1) Status post lumbar spinal fusion: Status: Acute (2) Lumbar radiculopathy: Status: Acute (3) Unilateral primary osteoarthritis, left hip: Status: Acute Plan X-rays were reviewed. There is no obvious fracture, dislocation, or lucency noted. Left hip does moderate to severe arthritis of the hip in addition he does have some lower lumbar spondylosis below his previous surgery. Patient was made aware that his numbness/tingling/pain below his knee and possibly anterior thigh will not go away after having a JOSEPH, however he is a candidate for hip replacement and I do think it would benefit him in terms of his severe pain thatis experiencing in his groin which is reproducible on examination. Treatment options are do nothing or anti-inflammatories or physical therapy or a JOSEPH. Risks, benefits and alternatives of surgery reviewed including but not limited to bleeding, infection, nerve, foot drop, artery and/or tissue damage, fracture,VTE, leg length discrepancy, dislocation, need for hip precautions, continued pain and expected post-operative course. We discussed the recovery period postoperative expectations and limitations. Patient was counseled about dental work with have a total hip replacement. Patient would like to go home and think about it before going forward with the JOSEPH. Patient does have 17 steps at home that he would have to navigate and he does live with his however she would not be able to help him physically so he may need to be observed overnight. Follow up he wants to proceed with surgery or sooner if pain, swelling, numbness or associated symptoms, or concerns develop. All questions answered. Patient in agreement of plan. 03/29/23 0844 <Electronically signed by Julio César Ugalde DO> Date Julio César Ugalde DO I have examined the patient and the H&P has been reviewed. There are no clinicalchanges since date of exam. 05/18/23 0958 <Electronically signed by Julio César Ugalde DO> Cosigner Signature (if applicable): CC: MICHAEL Alex; Dr. Julio César Ugalde DO~ Signed [facility] Work Phone: Evaluation note* Diagnosis Onset Date Resolution Status Leg cramps acute Ocular migraine acute [facility] Work Phone: Evaluation note* Diagnosis Onset Date Resolution Status Bilateral acute otitis media acute Cough acute Wellness examination acute [facility] Work Phone: Evaluation note* Diagnosis Onset Date Resolution Status Left hip pain acute Radiculopathy with lower extremity symptoms acute Difficulty walking acute Left hip pain acute Pain in right thigh acute Radiculopathy with lower extremity symptoms acute [facility] Work Phone: Evaluation note* Diagnosis Onset Date Resolution Status Left hip pain acute Radiculopathy with lower extremity symptoms acute Difficulty walking acute Left hip pain acute Pain in right thigh acute Radiculopathy with lower extremity symptoms acute Lumbar radiculopathy acute Status post lumbar spinal fusion acute Unilateral primary osteoarthritis, left hip acute [facility] Work Phone: Evaluation note* Diagnosis Onset Date Resolution Status Left hip pain acute Radiculopathy with lower extremity symptoms acute Difficulty walking acute Left hip pain acute Pain in right thigh acute Radiculopathy with lower extremity symptoms acute Lumbar radiculopathy acute Status post lumbar spinal fusion acute Unilateral primary osteoarthritis, left hip acute Lumbar radiculopathy acute Status post lumbar spinal fusion acute Unilateral primary osteoarthritis, left hip acute [facility] Work Phone: Evaluation note* Diagnosis Onset Date Resolution Status Difficulty walking acute Left hip pain acute Pain in right thigh acute Radiculopathy with lower extremity symptoms acute Lumbar radiculopathy acute Status post lumbar spinal fusion acute Unilateral primary osteoarthritis, left hip acute Lumbar radiculopathy acute Status post lumbar spinal fusion acute Unilateral primary osteoarthritis, left hip acute [facility] Work Phone: Evaluation note* Diagnosis Onset Date Resolution Status Difficulty walking acute Left hip pain acute Pain in right thigh acute Radiculopathy with lower extremity symptoms acute Lumbar radiculopathy acute Status post lumbar spinal fusion acute Unilateral primary osteoarthritis, left hip acute Lumbar radiculopathy acute Status post lumbar spinal fusion acute Unilateral primary osteoarthritis, left hip acute Orthopedic aftercare acute Orthopedic aftercare acute [facility] Work Phone: Hospital Discharge instructions Additional Instructions [facility] Used[facility] Work Phone: Reason for referral (narrative)No reason for referral information [facility] Work Phone: Chief Complaint and Reason for Visit Chief Complaint R) Eye pain H/A & la bs Reason for Visit Leg cramps Ocular migraine Chief Complaint Cough Annual wellness exam PE Reason for Visit Bilateral acute otit is media Cough Wellness examination Chief Complaint Eye complaints & Liyah nt pain Left leg pain EORDERS Reason for Visit Left hip pain Radiculopathy with lower extremity symptoms Difficulty walking Left hip pain Pain in right thigh Radiculopathy with lower extremity symptoms Chief Complaint Eye complaints & Liyah nt pain Left leg pain EORDERS LUMBAR SPINE LUMBAR RADIC/RX HERE LUMBAR RADICULOPATHY Reason for Visit Left hip pain Radiculopathy with lower extremity symptoms Difficulty walking Left hip pain Pain in right thigh Radiculopathy with lower extremity symptoms Lumbar radiculopathy Status post lumbar spinal fusion Unilateral primary osteoarthritis, left hip Chief Complaint Eye complaints & Liyah nt pain Left leg pain EORDERS LUMBAR SPINE LUMBAR RADIC/RX HERE LUMBAR RADICULOPATHY BI LAT HIPS M16.12 Unilateral primary osteoarthritis, left hip Reason for Visit Left hip pain Radiculopathy with lower extremity symptoms Difficulty walking Left hip pain Pain in right thigh Radiculopathy with lower extremity symptoms Lumbar radiculopathy Status post lumbar spinal fusion Unilateral primary osteoarthritis, left hip Lumbar radiculopathy Status post lumbar spinal fusion Unilateral primary osteoarthritis, left hip Chief Complaint Left leg pain EORDERS LUMBAR SPINE LUMBAR RADIC/RX HERE LUMBAR RADICULOPATHY BI LAT HIPS M16.12 Unilateral primary osteoarthritis, left hip PREOP ERAS Left Total Hip Replacement Isai ERAS Left Total Hip Replacement Isai Reason for Visit Difficulty walking Left hip pain Pain in right thigh Radiculopathy with lower extremity symptoms Lumbar radiculopathy Status post lumbar spinal fusion Unilateral primary osteoarthritis, left hip Lumbar radiculopathy Status post lumbar spinal fusion Unilateral primary osteoarthritis, left hip Chief Complaint Left leg pain EORDERS LUMBAR SPINE LUMBAR RADIC/RX HERE LUMBAR RADICULOPATHY BI LAT HIPS M16.12 Unilateral primary osteoarthritis, left hip PREOP ERAS Left Total Hip Replacement Isai ERAS Left Total Hip Replacement Isai Amb Documentation left hip JOSEPH DR KITTY ARAMBULA Reason for Visit Difficulty walking Left hip pain Pain in right thigh Radiculopathy with lower extremity symptoms Lumbar radiculopathy Status post lumbar spinal fusion Unilateral primary osteoarthritis, left hip Lumbar radiculopathy Status post lumbar spinal fusion Unilateral primary osteoarthritis, left hip Orthopedic aftercare Orthopedic aftercare Chief Complaint Admit Date LEFT HIP June 19, 2024 8:3 5am RM 1 June 19, 2024 8:5 4am BL HANDS July 19, 2024 7:34a m Room 2 July 19, 2024 8:16a m Reason for Visit Admit Date S/P total left hip arthroplasty June 192024 8:35am Left hand pain July 19, 2024 7:34a m Reason for Visit Admit Date S/P total left hip arthroplasty June 192024 8:35am Arthritis of carpometacarpal (CMC) joint of both thumbs July 19, 2024 7:34am Degenerative joint disease of cervical s pine July 19, 2024 7:34am Left hand pain July 19, 2024 7:34a m Family History No Family History Records Found Relationship Condition Age at Onset Recorded Date/T neeta Unknown Family History?Hypertension Unknown September 30, 2016 11:53am Family History?Hypertension Unknown January 09, 2022 4:22pm Relationship Condition Age at Onset Recorded Date/T neeta Unknown Family History?Hypertension Unknown September 30, 2016 12:53pm Family History?Hypertension Unknown January 09, 2022 5:22pm Relationship Condition Age at Onset Recorded Date/T neeta uncle Cardiac disease Unknown brother Myocardial infarction Unknown Advance Directives No Advanced Directives Records Found Advance Directive Response Recorded Date/ Time Living Will No January 09 4:22pm Power of Manager Clinical Services No January 09, 2022 4:22pm Advance Directive Response Recorded Date/ Time Living Will No January 09 5:22pm Power of Manager Clinical Services No January 09, 2022 5:22pm Advance Directive Response Recorded Date/ Time Living Will No March 17 8:52am Power of Manager Clinical Services No March 17, 2023 8:52am Advance Directive Response Recorded Date/ Time Living Will No May 10, 2023 11:05am Power of Manager Clinical Services No May 09 11:05am Advance Directive Response Recorded Date/ Time Living Will No May 10, 2023 11:05am Do you have a Healthcare Power of Manager Clinical Services? No May 10, 2023 11:05am Summary Purpose Additional Source Comments Goals (unrecognized section and content) Goals may be documented in a n alternate sectionGoals may be documented in an alternate sectionGoals may be documented in an alternate sectionGoals may be documented in an alternate sectionGoals may be documented in an alternate sectionGoals may be documented in an alternate sectionGoals may be documented in an alternate section Care Teams (unrecognized sec tion and content) Team Status: Active Member Role Status Dates Deepthi Alex SOCIAL INSURANCE SPECIALIST, SOCIAL INSURANCE SPECIALIST-C Family Provider Active Deepthi Alex SOCIAL INSURANCE SPECIALIST, SOCIAL INSURANCE SPECIALIST-C Primary Care Provider Active Team Status: Inactive Member Role Status Dates Deepthi Alex SOCIAL INSURANCE SPECIALIST, SOCIAL INSURANCE SPECIALIST-C Primary Care Pr ovider, Attending Provider, Referring Provider Active Team Status: Inactive Member Role Status Dates Deepthi Alex SOCIAL INSURANCE SPECIALIST, SOCIAL INSURANCE SPECIALIST-C Primary Care Provider, Attend ing Provider Active Team Status: Inactive Member Role Status Dates Deepthi Alex SOCIAL INSURANCE SPECIALIST, SOCIAL INSURANCE SPECIALIST-C Primary Care Provider, Referr ing Provider Active Dr. Collin Ventura MD Attending Provider Active Team Status: Inactive Member Role Status Dates Deepthi Alex SOCIAL INSURANCE SPECIALIST, SOCIAL INSURANCE SPECIALIST-C Primary Care Provider Active Dr. Collin Ventura MD Attending Provider Active Team Status: Active Member Role Status Dates Deepthi Alex SOCIAL INSURANCE SPECIALIST, SOCIAL INSURANCE SPECIALIST-C Primary Care Provider Active Dr. Collin Ventura MD Attending Provider, Referring Pr ovider Active Team Status: Inactive Member Role Status Dates Deepthi Alex SOCIAL INSURANCE SPECIALIST, SOCIAL INSURANCE SPECIALIST-C Primary Care Provider, Referr ing Provider Active Dr. Julio César Ugalde DO Attending Provider Active Team Status: Inactive Member Role Status Dates Deepthi Alex SOCIAL INSURANCE SPECIALIST, SOCIAL INSURANCE SPECIALIST-C Primary Care Provider Active Dr. Julio César Ugalde DO Attending Provider, Referring Provider Active Team Status: Active Member Role Status Dates Deepthi Alex SOCIAL INSURANCE SPECIALIST, SOCIAL INSURANCE SPECIALIST-C Primary Care Provider Active Dr. Wiley Arteaga MD Attending Provider Active Dr. Julio César Ugalde DO Referring Provider Active Team Status: Active Member Role Status Dates Deepthi Alex SOCIAL INSURANCE SPECIALIST, SOCIAL INSURANCE SPECIALIST-C Primary Care Provider Active Dr. Julio Césra Ugalde DO Attending Provid er, Referring Provider, Other Provider Active Team Status: Inactive Member Role Status Dates Deepthi Alex SOCIAL INSURANCE SPECIALIST, SOCIAL INSURANCE SPECIALIST-C Primary Care Provider, Referr ing Provider Active Wallace Hanna MD Attending Provider Active Team Status: Active Member Role Status Dates Deepthi Alex SOCIAL INSURANCE SPECIALIST, SOCIAL INSURANCE SPECIALIST-C Primary Care Provider Active Yuli Greenberg Attending Provider Active Team Status: Inactive Member Role Status Dates Deepthi Alex SOCIAL INSURANCE SPECIALIST, SOCIAL INSURANCE SPECIALIST-C Primary Care Provider Active Dr. Collin Ventura MD Attending Provider, Referring Pr ovider Active Team Status: Active Member Role Status Dates Deepthi Alex SOCIAL INSURANCE SPECIALIST, SOCIAL INSURANCE SPECIALIST-C Primary Care Provider Active Dr. Julio César Ugalde DO Attending Provider, Referring Provider Active Team Status: Active Member Role Status Dates Deepthi Alex SOCIAL INSURANCE SPECIALIST, SOCIAL INSURANCE SPECIALIST-C Primary Care Provider Active Team Status: Inactive Member Role Status Dates Deepthi Alex SOCIAL INSURANCE SPECIALIST, SOCIAL INSURANCE SPECIALIST-C Primary Care Provider Active Start: June 19, 2024 End: June 19, 2024 Deepthi Alex SOCIAL INSURANCE SPECIALIST, SOCIAL INSURANCE SPECIALIST-C Referring Provider Active Start: June 19, 2024 End: June 19, 2024 Dr. Julio César Ugalde DO Attending Provider Active Start: June 19, 2024 End: June 19, 2024 Team Status: Inactive Member Role Status Dates Deepthi Alex SOCIAL INSURANCE SPECIALIST, SOCIAL INSURANCE SPECIALIST-C Primary Care Provider Active Start: June 19, 2024 End: June 19, 2024 Dr. Wiley Arteaga MD Attending Provider Active S tart: June 19, 2024 End: June 19, 2024 Team Status: Active Member Role Status Dates Deepthi Alex SOCIAL INSURANCE SPECIALIST, SOCIAL INSURANCE SPECIALIST-C Primary Care Provider Active Start: July 19, 2024 Deepthi Alex SOCIAL INSURANCE SPECIALIST, SOCIAL INSURANCE SPECIALIST-C Referring Provider Active Start: July 19, 2024 Dr. Julio César Ugalde DO Attending Provider Active Start: July 19, 2024 Team Status: Inactive Member Role Status Dates Deepthi Alex SOCIAL INSURANCE SPECIALIST, SOCIAL INSURANCE SPECIALIST-C Primary Care Provider Active Start: July 19, 2024 End: July 19, 2024 Dr. Wiley Arteaga MD Attending Provider Active S tart: July 19, 2024 End: July 19, 2024 Team Status: Inactive Member Role Status Dates Deepthi Alex SOCIAL INSURANCE SPECIALIST, SOCIAL INSURANCE SPECIALIST-C Primary Care Provider Active Start: July 19, 2024 End: July 19, 2024 Deepthi Alex SOCIAL INSURANCE SPECIALIST, SOCIAL INSURANCE SPECIALIST-C Referring Provider Active Start: July 19, 2024 End: July 19, 2024 Dr. Julio César Ugalde , DO Attending Provider Active Start: July 19, 2024 End: July 19, 2024 (unrecognized sect ion and content) No Status Records Found INFORMATION SOURCE (unrecogn ized section and content) DATE CREATED AUTHOR 07/25/2024 [facility] FOR RECORDS PERTAINING TO PATIENTS WHO ARE OR HAVE BEEN ENROLLED IN A CHEMICAL DEPENDENCY/SUBSTANCEABUSE PROGRAM, SOME INFORMATION MAY BE OMITTED. This clinical summary was aggregated from multiple sources. Caution should be exercised in using it in the provision of clinical care. This summary normalizes information from multiple sources, and as a consequence, information in this document may materially change the coding, format and clinical context of patient data. In addition, data may be omitted in some cases. CLINICAL DECISIONS SHOULD BE BASED ON THE PRIMARY CLINICAL RECORDS. [employer] provides no warranty or guarantee of the accuracy or completeness of information in this document.
[2024-10-26 16:09] LABS: Anti-Chromatin <0.2 AI (0.0-0.9); Anti-Jo <0.2 AI (0.0-0.9); Anti-dsDNA Ab 1 IU/mL (0-9); SJOGREN'S Anti-SS-A test < 0.2 AI (0.0-0.9); SJOGREN'S Anti-SS-B test < 0.2 AI (0.0-0.9)
== END | disposition home or self-care (01) ==
PROVIDERS: PCP Nurse Practitioner; Visit Provider Nurse Practitioner
DX: M18.0 Bilateral primary osteoarthritis of first carpometacarpal joints (principal); M25.579 Pain in unspecified ankle and joints of unspecified foot
CPT/HCPCS: 85025; 86225; 86235; 86431